=== PATIENT | male | born 1960 | race American Indian/Alaskan Native ===

== ENCOUNTER 2020-07-19 13:13 | Inpatient (IN) | payer MEDICARE ==
[2020-07-19] MEDS ORDERED: dilTIAZem 25 MG/5 ML INJ IV ONE (13:21)
[2020-07-19] MEDS ORDERED: dilTIAZem 25 MG/5 ML INJ ONE (13:21)
--- NOTE | 2020-07-19 13:29 | Emergency Department Report ---
HPI - General Time Seen by Provider: 07/19/20 13:20 - HPI HPI: Room 22 The patient is a 60-year-old male present with a chief complaint of altered mental status. Per EMS the patient was behaving like his normal self approximately 45 minutes prior to arrival. 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 Per EMS the patient was in A. fib with RVR. EMS states that they were unable to obtain a blood pressure. They attempted to cardiovert the patient x2 at 50 J unsuccessfully. The patient does not respond to verbal or tactile stimuli ED Past Medical Hx - Past Medical History Hx Hypertension: Yes Hx CVA: Yes - Family History Family history: no significant - Social History Smoking Status: Unknown if ever smoked ED Review of Systems ROS: Stated complaint: UNRESONSIVE Other details as noted in HPI Comment: Unobtainable due to pts medical conditions Physical Exam - Physical Exam Physical Exam: GENERAL: The patient is well-developed well-nourished male lying on stretcher unresponsive. [] HEENT: Normocephalic. Atraumatic. NECK: Supple. Trachea midline CHEST/LUNGS: Clear to auscultation. There is no respiratory distress noted. HEART/CARDIOVASCULAR: Irregularly irregular. There is tachycardia. There is no gallop rub or murmur. ABDOMEN: Abdomen is soft, nontender. Patient has normal bowel sounds. There is no abdominal distention. SKIN: There is no rash. There is no edema. There is no diaphoresis. NEURO: The patient is unresponsive to verbal or tactile stimuli MUSCULOSKELETAL: There is no evidence of acute injury. ED Course - Reevaluation(s) Reevaluation #1: 07/19/20 13:53 Patient more responsive now. Gag reflex in place. Patient attempts to voice words but is soft-spoken. Patient answers questions appropriately denies complaints. - Central Line Placement Right Femoral Consent Obtained: verbal consent Time Out Performed: Yes Patient Placed on Monitor/Pulse Ox: Yes MD Prep: mask, gown, gloves Central Line Prep: Chlorhexidine scrub Local Anesthesia Used: Lidocaine 1% Amount of Anesthesia Used (mls): 5 Ultrasound Used for Placement: No Central Line Lumen Inserted: triple Bloods Obtained for Lab: No Central Line Position: good blood return, all ports aspirated, flus, other (Secured with adhesive) Dressing Applied: Tegaderm Patient Tolerated Procedure: no complications Complications: none Additional Comments: Blood return was dark and nonpulsatile ED Medical Decision Making - Lab Data Result diagrams: 07/19/20 13:48 07/19/20 13:48 Laboratory Tests 07/19/20 07/19/20 07/19/20 13:48 13:48 13:48 WBC 7.5 RBC 4.40 Hgb 13.0 Hct 40.6 MCV 92 MCH 30 MCHC 32 RDW 15.3 H Plt Count 154 Add Manual Diff Complete Total Counted 100 Seg Neuts % (Manual) 61.0 Band Neutrophils % 1.0 Lymphocytes % (Manual) 27.0 Reactive Lymphs % (Man) 0 Monocytes % (Manual) 3.0 Eosinophils % (Manual) 0 Basophils % (Manual) 0 Metamyelocytes % 7.0 Myelocytes % 1.0 Promyelocytes % 0 Blast Cells % 0 Nucleated RBC % Not Reportable Seg Neutrophils # Man 4.6 Band Neutrophils # 0.1 Lymphocytes # (Manual) 2.0 Abs React Lymphs (Man) 0.0 Monocytes # (Manual) 0.2 Eosinophils # (Manual) 0.0 Basophils # (Manual) 0.0 Metamyelocytes # 0.5 Myelocytes # 0.1 Promyelocytes # 0.0 Blast Cells # 0.0 WBC Morphology Not Reportable Hypersegmented Neuts Not Reportable Hyposegmented Neuts Not Reportable Hypogranular Neuts Not Reportable Smudge Cells Not Reportable Toxic Granulation Not Reportable Toxic Vacuolation Not Reportable Dohle Bodies Not Reportable Pelger-Huet Anomaly Not Reportable Lilliam Rods Not Reportable Platelet Estimate Consistent w auto Clumped Platelets Not Reportable Plt Clumps, EDTA Not Reportable Large Platelets Not Reportable Giant Platelets Not Reportable Platelet Satelliting Not Reportable Plt Morphology Comment Not Reportable RBC Morphology Not Reportable Dimorphic RBCs Not Reportable Polychromasia Not Reportable Hypochromasia Not Reportable Poikilocytosis Not Reportable Anisocytosis Not Reportable Microcytosis Not Reportable Macrocytosis Not Reportable Spherocytes Not Reportable Pappenheimer Bodies Not Reportable Sickle Cells Not Reportable Target Cells Not Reportable Tear Drop Cells Not Reportable Ovalocytes Not Reportable Helmet Cells Not Reportable Cates-[place]ear[place] Bodies Not Reportable Coy Rings Not Reportable [place] Cells Not Reportable Bite Cells Not Reportable Crenated Cell Not Reportable Elliptocytes Few Acanthocytes (Spur) Not Reportable Rouleaux Not Reportable Hemoglobin C Crystals Not Reportable Schistocytes Not Reportable Malaria parasites Not Reportable Philipp Bodies Not Reportable Hem Pathologist Commnt No PT 18.5 H INR 1.51 H APTT 32.6 Sodium 148 H Potassium 2.9 L* Chloride 105.8 Carbon Dioxide 11 L Anion Gap 34 BUN 28 H Creatinine 2.5 H Estimated GFR 32 BUN/Creatinine Ratio 11 Glucose 197 H Calcium 9.4 Magnesium 2.40 H Total Bilirubin 0.20 AST 33 ALT 28 Alkaline Phosphatase 85 Total Creatine Kinase 280 H CK-MB (CK-2) 4.6 H CK-MB (CK-2) Rel Index 1.6 Troponin T 0.024 NT-Pro-B Natriuret Pep 1008 H Total Protein 7.1 Albumin 3.3 L Albumin/Globulin Ratio 0.9 TSH Free T4 Plasma/Serum Alcohol 07/19/20 07/19/20 07/19/20 13:48 13:48 13:48 WBC RBC Hgb Hct MCV MCH MCHC RDW Plt Count Add Manual Diff Total Counted Seg Neuts % (Manual) Band Neutrophils % Lymphocytes % (Manual) Reactive Lymphs % (Man) Monocytes % (Manual) Eosinophils % (Manual) Basophils % (Manual) Metamyelocytes % Myelocytes % Promyelocytes % Blast Cells % Nucleated RBC % Seg Neutrophils # Man Band Neutrophils # Lymphocytes # (Manual) Abs React Lymphs (Man) Monocytes # (Manual) Eosinophils # (Manual) Basophils # (Manual) Metamyelocytes # Myelocytes # Promyelocytes # Blast Cells # WBC Morphology TNR Hypersegmented Neuts Hyposegmented Neuts Hypogranular Neuts Smudge Cells Toxic Granulation Toxic Vacuolation Dohle Bodies Pelger-Huet Anomaly Lilliam Rods Platelet Estimate Clumped Platelets Plt Clumps, EDTA Large Platelets Giant Platelets Platelet Satelliting Plt Morphology Comment RBC Morphology Dimorphic RBCs Polychromasia Hypochromasia Poikilocytosis Anisocytosis Microcytosis Macrocytosis Spherocytes Pappenheimer Bodies Sickle Cells Target Cells Tear Drop Cells Ovalocytes Helmet Cells Cates-[place]ear[place] Bodies Coy Rings Morteza Cells Bite Cells Crenated Cell Elliptocytes Acanthocytes (Spur) Rouleaux Hemoglobin C Crystals Schistocytes Malaria parasites Philipp Bodies Hem Pathologist Commnt PT INR APTT Sodium Potassium Chloride Carbon Dioxide Anion Gap BUN Creatinine Estimated GFR BUN/Creatinine Ratio Glucose Calcium Magnesium Total Bilirubin AST ALT Alkaline Phosphatase Total Creatine Kinase CK-MB (CK-2) CK-MB (CK-2) Rel Index Troponin T NT-Pro-B Natriuret Pep Total Protein Albumin Albumin/Globulin Ratio TSH 5.460 H Free T4 1.17 Plasma/Serum Alcohol < 0.01 - EKG Data -: EKG Interpreted by Me Rate: normal - EKG Data When compared to previous EKG there are: previous EKG unavailable Interpretation: other (Atrial fibrillation at 83 bpm) - Radiology Data Radiology results: report reviewed (Chest x-ray, CT head), image reviewed (Chest x-ray, CT head) interpreted by me: Chest x-ray-no focal infiltrates, no pneumothorax, no foreign body seen [address] [address] XRay Report Signed Patient: CRESENCIO LAYTON MR#: [id number] : 1960 Acct:[id number] Age/Sex: 60 / M ADM Date: 07/19/20 Loc: ED Attending Dr: Ordering Physician: KEZIA PEARL MD Date of Service: 07/19/20 Procedure(s): XR chest 1V ap Accession Number(s): [id number] cc: KEZIA PEARL MD Fluoro Time In Minutes: CHEST 1 VIEW 07/19/2020 3:05 PM INDICATION / CLINICAL INFORMATION: Syncope. COMPARISON: None available. FINDINGS: SUPPORT DEVICES: None. HEART / MEDIASTINUM: No significant abnormality. LUNGS / PLEURA: No significant pulmonary or pleural abnormality. No pneumothorax. ADDITIONAL FINDINGS: No significant additional findings. IMPRESSION: 1. No acute findings. Signer Name: Thaddeus Noland MD Signed: 07/19/2020 3:30 PM Workstation Name: [id number] Transcribed By: TL Dictated By: Thaddeus Noland MD Electronically Authenticated By: Thaddeus Noland MD Signed Date/Time: 07/19/201529 DD/ 1530 TD/TT: [address] [address] Cat Scan Report Signed Patient: CRESENCIO LAYTON MR#: [id number] : 1960 Acct:[id number] Age/Sex: 60 / M ADM Date: 07/19/20 Loc: ED Attending Dr: Ordering Physician: KEZIA PEARL MD Date of Service: 07/19/20 Procedure(s): CT head/brain wo con Accession Number(s): [id number] cc: KEZIA PEARL MD CT head/brain wo con INDICATION / CLINICAL INFORMATION: 60 years Male; Altered mental status. TECHNIQUE: Routine CT head without contrast. All CT scans at this location are performed using CT dose reduction for ALARA by means of automated exposure control. COMPARISON: None. FINDINGS: BRAIN / INTRACRANIAL CONTENTS: There is ext ensive encephalomalacia involving the right cerebral hemisphere along the right MCA distribution compatible with old infarct at. There is associated ex vacuo dilatation of the right lateral ventricle. There is also an old infarct involving the posterior left cerebellum. There is otherwise extensive cerebral white matter disease most consistent with microvascular angiopathy. There is notable calcification involving the basal ganglia and cerebellar white matter. There is no clear CT evidence of acute intracranial hemorrhage or significant mass effect. ORBITS: No significant abnormality of visualized orbits. SINUSES / MASTOIDS: There is mild opacification involving visualized inferior maxillary sinuses. CRANIOCERVICAL JUNCTION: No significant abnormality. ADDITIONAL FINDINGS: None. IMPRESSION: 1. This old the right MCA infarct with extensive encephalomalacia. 2. There is also an old infarct involving the left cerebellum along with extensive microvascular angiopathy. There is no clear CT evidence of acute intracranial hemorrhage. Signer Name: Julio Cesar Benavides MD Signed: 07/19/2020 5:40 PM Workstation Name: [id number] Transcribed By: MR Dictated By: Julio Cesar Benavides MD Electronically Authenticated By: Julio Cesar Benavides MD Signed Date/Time: 07/19/201739 DD/ 33 TD/TT: - Differential Diagnosis ICH, A. fib with RVR, Critical care attestation.: If time is entered above; I have spent that time in minutes in the direct care of this critically ill patient, excluding procedure time. ED Disposition Clinical Impression: Syncope, Atrial fibrillation with rapid ventricular response Disposition: OP ADMIT IP TO THIS HOSP Is pt being admited?: Yes Does the pt Need Aspirin: Yes Condition: Stable Instructions: Syncope (ED) Referrals: PRIMARY CARE,MD [Primary Care Provider] - 3-5 Days Time of Disposition: 18:05 (Hospitalist paged (Dr Walker))
[2020-07-19] MEDS ORDERED: SODIUM CHLORIDE 0.9% 1000 ML 1,000 ML ONE ×2 (13:41→23:17)
[2020-07-19] MEDS ORDERED: dilTIAZem/D5W 100 MG/100 ML BAG IV SCH (14:00)
[2020-07-19 14:21] LABS: INR 1.51 (0.87-1.13)
[2020-07-19 14:22] LABS: Partial Thromboplastin Time 32.6 Sec. (24.2-36.6)
[2020-07-19 14:27] LABS: Hematocrit 40.6 % (35.5-45.6); Mean Corpuscular HGB Conc 32 % (32-34); Mean Corpuscular Volume 92 fl (84-94); Platelet Count 154 K/mm3 (140-440); Red Cell Distribution Width 15.3 % (13.2-15.2)
[2020-07-19 14:30] LABS: Albumin 3.3 g/dL (3.9-5); Calcium 9.4 mg/dL (8.4-10.2); Creatine Kinase MB 4.6 ng/mL (0.0-4.0)
[2020-07-19 14:36] LABS: Free T4 (Free Thyroxine) 1.17 ng/dL (0.76-1.46)
[2020-07-19] MEDS: NORepinephrine/NS 4 MG-250 ML 4 MG/250 ML BAG IV SCH ×2 (14:50→23:30)
[2020-07-19] MEDS ORDERED: ONDANSETRON 4 MG/2 ML INJ ONE ×2 (15:17→23:40)
--- NOTE | 2020-07-19 15:35 | XRay Report ---
CHEST 1 VIEW 07/19/2020 3:05 PM INDICATION / CLINICAL INFORMATION: Syncope. COMPARISON: None available. FINDINGS: SUPPORT DEVICES: None. HEART / MEDIASTINUM: No significant abnormality. LUNGS / PLEURA: No significant pulmonary or pleural abnormality. No pneumothorax. ADDITIONAL FINDINGS: No significant additional findings. IMPRESSION: 1. No acute findings. Signer Name: Thaddeus Noland MD Signed: 07/19/2020 3:30 PM Workstation Name: [id number]
[2020-07-19 16:21] LABS: Band Neutrophils # (Manual) 0.1 K/mm3; Basophils % (Manual) 0 % (0.0-1.8); Eosinophils % (Manual) 0 % (0.0-4.3); Myelocytes # (Manual) 0.1 K/mm3; Total Cells Counted 100
[2020-07-19 16:23] LABS: Platelet Estimate Consistent w Auto
--- NOTE | 2020-07-19 17:45 | Cat Scan Report ---
CT head/brain wo con INDICATION / CLINICAL INFORMATION: 60 years Male; Altered mental status. TECHNIQUE: Routine CT head without contrast. All CT scans at this location are performed using CT dos e reduction for ALARA by means of automated exposure control. COMPARISON: None. FINDINGS: BRAIN / INTRACRANIAL CONTENTS: There is extensive encephalomalacia involving the right cerebral hemis phere along the right MCA distribution compatible with old infarct at. There is associated ex vacuo d ilatation of the right lateral ventricle. There is also an old infarct involving the posterior left c erebellum. There is otherwise extensive cerebral white matter disease most consistent with microvascular angiopa thy. There is notable calcification involving the basal ganglia and cerebellar white matter. There is no clear CT evidence of acute intracranial hemorrhage or significant mass effect. ORBITS: No significant abnormality of visualized orbits. SINUSES / MASTOIDS: There is mild opacification involving visualized inferior maxillary sinuses. CRANIOCERVICAL JUNCTION: No significant abnormality. ADDITIONAL FINDINGS: None. IMPRESSION: 1. This old the right MCA infarct with extensive encephalomalacia. 2. There is also an old infarct involving the left cerebellum along with extensive microvascular adi opathy. There is no clear CT evidence of acute intracranial hemorrhage. Signer Name: Julio Cesar Benavides MD Signed: 07/19/2020 5:40 PM Workstation Name: [id number]
[2020-07-19] MEDS: POTASSIUM CHLORIDE 20 MEQ 20 MEQ/100 ML BAG IV SCH ×2 (17:58→20:07)
[2020-07-19] MEDS ORDERED: METOCLOPRAMIDE 10 MG/2 ML INJ IV ONE (18:17)
[2020-07-19] MEDS ORDERED: SODIUM CHLORIDE 0.9% 1000 ML 1,000 ML IV SCH (22:45)
[2020-07-19] MEDS ORDERED: METOCLOPRAMIDE 10 MG/2 ML INJ IV PRN (22:45)
[2020-07-19] MEDS ORDERED: ACETAMINOPHEN 325 MG TAB PO PRN (22:45)
[2020-07-19] MEDS ORDERED: MORPHINE 4 MG/1 ML INJ IV PRN (22:45)
[2020-07-19] MEDS ORDERED: POTASSIUM CHLORIDE 10 MEQ 10 MEQ/100 ML BAG IV ONE (23:17)
[2020-07-19] MEDS ORDERED: FAMOTIDINE 20 MG/2 ML INJ IV ONE (23:23)
[2020-07-19] MEDS: FAMOTIDINE 20 MG/2 ML INJ IV SCH (23:25)
[2020-07-19] MEDS: POTASSIUM CHLORIDE 10 MEQ 10 MEQ/100 ML BAG IV SCH (23:25)
[2020-07-19] MEDS ORDERED: NORepinephrine/NS 4 MG-250 ML 4 MG/250 ML BAG IV ONE (23:25)
[2020-07-19] MEDS: ONDANSETRON 4 MG/2 ML INJ IV PRN (23:40)
[2020-07-20] MEDS ORDERED: POTASSIUM CHLORIDE 10 MEQ 10 MEQ/100 ML BAG IV ONE (00:34)
[2020-07-20] MEDS: POTASSIUM CHLORIDE 10 MEQ 10 MEQ/100 ML BAG IV SCH ×3 (00:49→02:04)
[2020-07-20] MEDS ORDERED: MORPHINE 2 MG/1 ML INJ ONE ×2 (02:19→11:45)
[2020-07-20] MEDS: MORPHINE 2 MG/1 ML INJ IV PRN ×2 (02:22→11:45)
[2020-07-20 04:05] LABS: Hematocrit 45.3 % (35.5-45.6); Mean Corpuscular HGB Conc 33 % (32-34); Mean Corpuscular Volume 90 fl (84-94); Platelet Count 167 K/mm3 (140-440); Red Blood Count 5.02 M/mm3 (3.65-5.03); Red Cell Distribution Width 15.9 % (13.2-15.2)
[2020-07-20 04:23] LABS: Albumin 3.6 g/dL (3.9-5); Calcium 8.4 mg/dL (8.4-10.2)
[2020-07-20 06:42] LABS: Anisocytosis 1+; Basophils % (Manual) 0 % (0.0-1.8); Eosinophils % (Manual) 0 % (0.0-4.3); Platelet Estimate Consistent w Auto; Total Cells Counted 100
[2020-07-20] MEDS ORDERED: NORepinephrine/NS 4 MG-250 ML 4 MG/250 ML BAG IV ONE ×2 (07:12→17:14)
[2020-07-20 07:54] LABS: Bacteria,Urine 4+ /HPF (Negative); Bilirubin,Urine NEG (Negative); Blood,Urine LG (Negative); Color,Urine Amber (Yellow); Mucus,Urine FEW /HPF; Urobilinogen,Urine < 2.0 mg/dL (<2.0)
[2020-07-20] MEDS: NORepinephrine/NS 4 MG-250 ML 4 MG/250 ML BAG IV SCH (08:00)
--- NOTE | 2020-07-20 08:51 | History and Physical Report ---
History of Present Illness Date of examination: 07/19/20 Date of admission: 07/19/20 18:39 Chief complaint: Unresponsive for 1 hour prior to EMS arrival History of present illness: 60-year-old male with history of hypertension and cerebrovascular accident in the past brought in by EMS with a chief complaint of altered mental status. Per EMS the patient was behaving like his normal self approximately 45 minutes prior to arrival. 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 Per EMS the patient was in A. fib with RVR. EMS states that they were unable to obtain a blood pressure. They attempted to cardiovert the patient x2 at 50 J unsuccessfully. The patient does not respond to verbal or tactile stimuli - Past Medical History Hx Hypertension: Yes Hx CVA: Yes - Family History Family history: no significant - Social History Smoking Status: Unknown if ever smoked Review of Systems ROS: Stated complaint: UNRESONSIVE Other details as noted in HPI Comment: Unobtainable due to pts medical conditions Medications and Allergies Allergies Allergy/AdvReac Type Severity Reaction Status Date / Time No Known Allergies Allergy Unverified 07/19/20 14:28 Active Meds: Active Medications Acetaminophen (Tylenol) 650 mg PO Q4H PRN PRN Reason: Pain MILD(1-3)/Fever >100.5/HAZEL Famotidine (Pepcid) 20 mg IV QAM EUNICE Last Admin: 07/19/20 23:25 Dose: 20 mg Documented by: Diltiazem HCl (Cardizem/D5w 100mg/100ml) 100 mg in 100 mls @ 5 mls/hr IV TITR EUNICE; Protocol Last Admin: 07/19/20 20:53 Dose: 5 mg/hr, 5 mls/hr Documented by: Norepinephrine (Levophed Drip 4 Mg/Ns 250 Ml) 4 mg in 250 mls @ 7.5 mls/hr IV TITR EUNICE; Protocol Last Titration: 07/20/20 01:30 Dose: 6 mcg/min, 22.5 mls/hr Documented by: Sodium Chloride (Nacl 0.9% 1000 Ml) 1,000 mls @ 100 mls/hr IV DIRECT EUNICE Last Admin: 07/19/20 23:25 Dose: 100 mls/hr Documented by: Metoclopramide HCl (Reglan) 5 mg IV Q6H PRN PRN Reason: Nausea And Vomiting Morphine Sulfate (Morphine) 2 mg IV Q4H PRN PRN Reason: Pain, Moderate (4-6) Last Admin: 07/20/20 02:22 Dose: 2 mg Documented by: Morphine Sulfate (Morphine) 4 mg IV Q4H PRN PRN Reason: Pain , Severe (7-10) Ondansetron HCl (Zofran) 4 mg IV Q8H PRN PRN Reason: Nausea And Vomiting Last Admin: 07/19/20 23:40 Dose: 4 mg Documented by: Sodium Chloride (Sodium Chloride Flush Syringe 10 Ml) 10 ml IV BID EUNICE Sodium Chloride (Sodium Chloride Flush Syringe 10 Ml) 10 ml IV PRN PRN PRN Reason: LINE FLUSH Exam - Physical Exam Narrative exam: Patient is unresponsive - Constitutional Vitals: Temp Pulse Resp BP Pulse Ox 97.7 F 82 25 H 101/77 99 07/19/20 23:46 07/20/20 06:45 07/20/20 06:30 07/20/20 06:45 07/20/20 06:45 General appearance: Present: no acute distress, well-nourished - EENT Eyes: Present: PERRL ENT: hearing intact, clear oral mucosa - Neck Neck: Present: supple, normal ROM - Respiratory Respiratory effort: normal Respiratory: bilateral: CTA - Cardiovascular Heart rate: 88 Rhythm: irregularly irregular Heart Sounds: Present: S1 & S2. Absent: rub, click - Extremities Extremities: pulses symmetrical, No edema Peripheral Pulses: within normal limits - Abdominal General gastrointestinal: Present: soft, non-tender, non-distended, normal bowel sounds Male genitourinary: Present: normal - Rectal Rectal Exam: deferred - Integumentary Integumentary: Present: clear, warm, dry - Musculoskeletal Musculoskeletal: generalized weakness - Psychiatric Psychiatric: other (Unresponsive) - Neurologic Neurologic: CNII-XII intact, moves all extremities HEART Score - HEART Score History: Moderately suspicious Age: 45-65 Risk factors: 1-2 risk factors Troponin: Troponin T 0.024 ng/mL (0.00-0.029) 07/19/20 13:48 Troponin: 1-3x normal limit - Critical Actions Critical Actions: 4-6 pts:12-16.6% risk of adverse cardiac event. Should be admitted Results - Labs CBC & Chem 7: 07/20/20 03:40 07/20/20 03:40 Labs: Laboratory Last Values WBC 10.7 K/mm3 (4.5-11.0) 07/20/20 03:40 RBC 5.02 M/mm3 (3.65-5.03) 07/20/20 03:40 Hgb 15.0 gm/dl (11.8-15.2) 07/20/20 03:40 Hct 45.3 % (35.5-45.6) 07/20/20 03:40 MCV 90 fl (84-94) 07/20/20 03:40 MCH 30 pg (28-32) 07/20/20 03:40 MCHC 33 % (32-34) 07/20/20 03:40 RDW 15.9 % (13.2-15.2) H 07/20/20 03:40 Plt Count 167 K/mm3 (140-440) 07/20/20 03:40 Add Manual Diff Complete 07/20/20 03:40 Total Counted 100 07/20/20 03:40 Seg Neuts % (Manual) 92.0 % (40.0-70.0) H 07/20/20 03:40 Band Neutrophils % 0 % 07/20/20 03:40 Lymphocytes % (Manual) 3.0 % (13.4-35.0) L 07/20/20 03:40 Reactive Lymphs % (Man) 0 % 07/20/20 03:40 Monocytes % (Manual) 5.0 % (0.0-7.3) 07/20/20 03:40 Eosinophils % (Manual) 0 % (0.0-4.3) 07/20/20 03:40 Basophils % (Manual) 0 % (0.0-1.8) 07/20/20 03:40 Metamyelocytes % 0 % 07/20/20 03:40 Myelocytes % 0 % 07/20/20 03:40 Promyelocytes % 0 % 07/20/20 03:40 Blast Cells % 0 % 07/20/20 03:40 Nucleated RBC % Not Reportable 07/20/20 03:40 Seg Neutrophils # Man 9.8 K/mm3 (1.8-7.7) H 07/20/20 03:40 Band Neutrophils # 0.0 K/mm3 07/20/20 03:40 Lymphocytes # (Manual) 0.3 K/mm3 (1.2-5.4) L 07/20/20 03:40 Abs React Lymphs (Man) 0.0 K/mm3 07/20/20 03:40 Monocytes # (Manual) 0.5 K/mm3 (0.0-0.8) 07/20/20 03:40 Eosinophils # (Manual) 0.0 K/mm3 (0.0-0.4) 07/20/20 03:40 Basophils # (Manual) 0.0 K/mm3 (0.0-0.1) 07/20/20 03:40 Metamyelocytes # 0.0 K/mm3 07/20/20 03:40 Myelocytes # 0.0 K/mm3 07/20/20 03:40 Promyelocytes # 0.0 K/mm3 07/20/20 03:40 Blast Cells # 0.0 K/mm3 07/20/20 03:40 WBC Morphology Not Reportable 07/20/20 03:40 Hypersegmented Neuts Not Reportable 07/20/20 03:40 Hyposegmented Neuts Not Reportable 07/20/20 03:40 Hypogranular Neuts Not Reportable 07/20/20 03:40 Smudge Cells Not Reportable 07/20/20 03:40 Toxic Granulation Not Reportable 07/20/20 03:40 Toxic Vacuolation Not Reportable 07/20/20 03:40 Dohle Bodies Not Reportable 07/20/20 03:40 Pelger-Huet Anomaly Not Reportable 07/20/20 03:40 Lilliam Rods Not Reportable 07/20/20 03:40 Platelet Estimate Consistent w auto 07/20/20 03:40 Clumped Platelets Not Reportable 07/20/20 03:40 Plt Clumps, EDTA Not Reportable 07/20/20 03:40 Large Platelets Not Reportable 07/20/20 03:40 Giant Platelets Not Reportable 07/20/20 03:40 Platelet Satelliting Not Reportable 07/20/20 03:40 Plt Morphology Comment Not Reportable 07/20/20 03:40 RBC Morphology Not Reportable 07/20/20 03:40 Dimorphic RBCs Not Reportable 07/20/20 03:40 Polychromasia Not Reportable 07/20/20 03:40 Hypochromasia Not Reportable 07/20/20 03:40 Poikilocytosis Not Reportable 07/20/20 03:40 Anisocytosis 1+ 07/20/20 03:40 Microcytosis Not Reportable 07/20/20 03:40 Macrocytosis Not Reportable 07/20/20 03:40 Spherocytes Not Reportable 07/20/20 03:40 Pappenheimer Bodies Not Reportable 07/20/20 03:40 Sickle Cells Not Reportable 07/20/20 03:40 Target Cells Not Reportable 07/20/20 03:40 Tear Drop Cells Not Reportable 07/20/20 03:40 Ovalocytes Not Reportable 07/20/20 03:40 Helmet Cells Not Reportable 07/20/20 03:40 Cates-Murdock Bodies Not Reportable 07/20/20 03:40 [place] Rings Not Reportable 07/20/20 03:40 Morteza Cells Not Reportable 07/20/20 03:40 Bite Cells Not Reportable 07/20/20 03:40 Crenated Cell Not Reportable 07/20/20 03:40 Elliptocytes Not Reportable 07/20/20 03:40 Acanthocytes (Spur) Not Reportable 07/20/20 03:40 Rouleaux Not Reportable 07/20/20 03:40 Hemoglobin C Crystals Not Reportable 07/20/20 03:40 Schistocytes Not Reportable 07/20/20 03:40 Malaria parasites Not Reportable 07/20/20 03:40 Philipp Bodies Not Reportable 07/20/20 03:40 Hem Pathologist Commnt No 07/20/20 03:40 PT 18.5 Sec. (12.2-14.9) H 07/19/20 13:48 INR 1.51 (0.87-1.13) H 07/19/20 13:48 APTT 32.6 Sec. (24.2-36.6) 07/19/20 13:48 Sodium 147 mmol/L (137-145) H 07/20/20 03:40 Potassium 3.9 mmol/L (3.6-5.0) D 07/20/20 03:40 Chloride 106.0 mmol/L (98-107) 07/20/20 03:40 Carbon Dioxide 19 mmol/L (22-30) L D 07/20/20 03:40 Anion Gap 26 mmol/L 07/20/20 03:40 BUN 49 mg/dL (9-20) H 07/20/20 03:40 Creatinine 3.3 mg/dL (0.8-1.3) H 07/20/20 03:40 Estimated GFR 23 ml/min 07/20/20 03:40 BUN/Creatinine Ratio 15 % 07/20/20 03:40 Glucose 169 mg/dL (75-100) H 07/20/20 03:40 Hemoglobin A1c 5.7 % (4-6) 07/20/20 03:40 Calcium 8.4 mg/dL (8.4-10.2) 07/20/20 03:40 Magnesium 2.40 mg/dL (1.7-2.3) H 07/19/20 13:48 Total Bilirubin 0.30 mg/dL (0.1-1.2) 07/20/20 03:40 AST 133 units/L (5-40) H 07/20/20 03:40 ALT 73 units/L (7-56) H 07/20/20 03:40 Alkaline Phosphatase 86 units/L (35-129) 07/20/20 03:40 Total Creatine Kinase 280 units/L (55-170) H 07/19/20 13:48 CK-MB (CK-2) 4.6 ng/mL (0.0-4.0) H 07/19/20 13:48 CK-MB (CK-2) Rel Index 1.6 (0-4) 07/19/20 13:48 Troponin T 0.024 ng/mL (0.00-0.029) 07/19/20 13:48 NT-Pro-B Natriuret Pep 1008 pg/mL (0-900) H 07/19/20 13:48 Total Protein 7.1 g/dL (6.3-8.2) 07/20/20 03:40 Albumin 3.6 g/dL (3.9-5) L 07/20/20 03:40 Albumin/Globulin Ratio 1.0 % 07/20/20 03:40 TSH 5.460 mlU/mL (0.270-4.200) H 07/19/20 13:48 Free T4 1.17 ng/dL (0.76-1.46) 07/19/20 13:48 Urine Color Mylene (Yellow) 07/19/20 Unknown Urine Turbidity Cloudy (Clear) 07/19/20 Unknown Urine pH 7.0 (5.0-7.0) 07/19/20 Unknown Ur Specific [place] 1.017 (1.003-1.030) 07/19/20 Unknown Urine Protein 100 mg/dl mg/dL (Negative) 07/19/20 Unknown Urine Glucose (UA) Neg mg/dL (Negative) 07/19/20 Unknown Urine Ketones Neg mg/dL (Negative) 07/19/20 Unknown Urine Blood Lg (Negative) 07/19/20 Unknown Urine Nitrite Neg (Negative) 07/19/20 Unknown Urine Bilirubin Neg (Negative) 07/19/20 Unknown Urine Urobilinogen < 2.0 mg/dL (<2.0) 07/19/20 Unknown Ur Leukocyte Esterase Lg (Negative) 07/19/20 Unknown Urine WBC (Auto) 110.0 /HPF (0.0-6.0) H 07/19/20 Unknown Urine RBC (Auto) 68.0 /HPF (0.0-6.0) 07/19/20 Unknown U Epithel Cells (Auto) 1.0 /HPF (0-13.0) 07/19/20 Unknown Urine Bacteria (Auto) 4+ /HPF (Negative) 07/19/20 Unknown Urine Mucus Few /HPF 07/19/20 Unknown Plasma/Serum Alcohol < 0.01 % (0-0.07) 07/19/20 13:48 Short CBC 07/19/20 07/20/20 Range/Units 13:48 03:40 WBC 7.5 10.7 (4.5-11.0) K/mm3 Hgb 13.0 15.0 (11.8-15.2) gm/dl Hct 40.6 45.3 (35.5-45.6) % Plt Count 154 167 (140-440) K/mm3 BMP 07/19/20 07/20/20 13:48 03:40 Sodium 148 H 147 H Potassium 2.9 L* 3.9 D Chloride 105.8 106.0 Carbon Dioxide 11 L 19 L D BUN 28 H 49 H Creatinine 2.5 H 3.3 H Glucose 197 H 169 H Calcium 9.4 8.4 Cardiac Enzymes 07/19/20 Range/Units 13:48 Total Creatine Kinase 280 H (55-170) units/L CK-MB (CK-2) 4.6 H (0.0-4.0) ng/mL Troponin T 0.024 (0.00-0.029) ng/mL Liver Function 07/19/20 07/20/20 Range/Units 13:48 03:40 Total Bilirubin 0.20 0.30 (0.1-1.2) mg/dL AST 33 133 H (5-40) units/L ALT 28 73 H (7-56) units/L Alkaline Phosphatase 85 86 (35-129) units/L Albumin 3.3 L 3.6 L (3.9-5) g/dL Urine 07/19/20 Range/Units Unknown Urine Color Mylene (Yellow) Urine pH 7.0 (5.0-7.0) Ur Specific [place] 1.017 (1.003-1.030) Urine Protein 100 mg/dl (Negative) mg/dL Urine Glucose (UA) Neg (Negative) mg/dL - Imaging and Cardiology EKG: report reviewed (Lito burr with RVR) Imaging and Cardiology: Head CT Old right MCA infarct with extensive encephalomalacia Old infarct involving the left cerebellum along with extensive microvascular angiopathy. There is no clear CT evidence of acute intracranial hemorrhage. Chest x-ray No acute findings Tineo/IV: IV Catheter Type [Right Hand] INT / Saline Lock IV Catheter Type [Right INT / Saline Lock Forearm] Assessment and Plan Assessment and plan: Critical care statement The high probability OF a clinically significant sudden or life-threatening d eterioration of the cardiorespiratory system and endocrine system required my full and direct attention, intervention and postoperative management. The aggregate medical care time was 40 minutes. The time is in addition to time spent performing reported procedures but includes the followin: Data review and interpretation 2: Patient assessment and monitoring of vital signs 3: Documentation 4:: Medication orders and management Advance Directives: Yes (Full code) VTE prophylaxis?: Chemical Plan of care discussed with patient/family: Yes - Patient Problems (1) Atrial fibrillation with rapid ventricular response Current Visit: Yes Status: Acute Plan to address problem: Patient was given Cardizem IV in the ER Patient became hypotensive Heart rate improved We will get cardiology consult (2) Hypotension Current Visit: Yes Status: Acute Qualifiers: Hypotension type: unspecified hypotension type Qualified Code(s): I95.9 - Hypotension, unspecified Plan to address problem: Differential diagnosis of septic shock versus iatrogenic IV fluids for now IV Rocephin and vancomycin (3) Sepsis Current Visit: Yes Status: Acute Plan to address problem: Sepsis and differential diagnosis Patient is hypotensive Patient has UTI with white blood cells of 110 in the urine (4) History of hypertension Current Visit: Yes Status: Chronic Plan to address problem: We will hold antihypertensives for now (5) JESSIKA (acute kidney injury) Current Visit: Yes Status: Acute Plan to address problem: IV fluids for now Possible ATN Nephrology consult requested (6) DVT prophylaxis Current Visit: Yes Status: Acute Plan to address problem: Heparin subcu and GI prophylaxis
[2020-07-20] MEDS ORDERED: VANCOMYCIN PHARMACY TO DOSE IV SCH (09:00)
--- NOTE | 2020-07-20 09:08 | Progress Note ---
Assessment and Plan Critical care statement The high probability OF a clinically significant sudden or life-threatening deterioration of the cardiorespiratory system and endocrine system required my full and direct attention, intervention and postoperative management. The aggregate critical care time was 40 minutes. The time is in addition to time spent performing reported procedures but includes the followin: Data review and interpretation 2: Patient assessment and monitoring of vital signs 3: Documentation 4:: Medication orders and management - Patient Problems (1) Atrial fibrillation with rapid ventricular response Current Visit: Yes Status: Acute Plan to address problem: Patient was given Cardizem IV in the ER Patient became hypotensive Heart rate improved We will get cardiology consult Patient's heart rate is in the 80s but irregularly irregular Echocardiogram ordered (2) Hypotension Current Visit: Yes Status: Acute Qualifiers: Hypotension type: unspecified hypotension type Qualified Code(s): I95.9 - Hypotension, unspecified Plan to address problem: Differential diagnosis of septic shock versus iatrogenic IV fluids for now IV Rocephin and vancomycin (3) Sepsis Current Visit: Yes Status: Suspected Plan to address problem: Sepsis and differential diagnosis Patient is hypotensive Patient has UTI with white blood cells of 110 in the urine (4) History of hypertension Current Visit: Yes Status: Chronic Plan to address problem: We will hold antihypertensives for now (5) JESSIKA (acute kidney injury) Current Visit: Yes Status: Acute Plan to address problem: IV fluids for now Possible ATN Nephrology consult requested (6) Hypokalemia Current Visit: Yes Status: Resolved Plan to address problem: Corrected back to normal (7) DVT prophylaxis Current Visit: Yes Status: Acute Plan to address problem: Heparin subcu and GI prophylaxis Subjective Date of service: 07/20/20 Principal diagnosis: Atrial fibrillation with RVR, hypotension, UTI Interval history: 60-year-old male with history of hypertension and cerebrovascular accident in the past brought in by EMS with a chief complaint of altered mental status. Per EMS the patient was behaving like his normal self approximately 45 minutes prior to arrival. 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 Per EMS the patient was in A. fib with RVR. EMS states that they were unable to obtain a blood pressure. They attempted to cardiovert the patient x2 at 50 J unsuccessfully. The patient does not respond to verbal or tactile stimuli Objective - Exam Narrative Exam: Patient is unresponsive - Constitutional Vitals: Vital Signs - 12hr 07/19/20 07/19/20 07/19/20 21:15 21:30 21:45 Temperature Pulse Rate 70 64 72 Respiratory 22 21 22 Rate Blood Pressure 107/69 144/95 139/86 Blood Pressure [Left] O2 Sat by Pulse 100 100 100 Oximetry 07/19/20 07/19/20 07/19/20 22:00 22:31 22:45 Temperature Pulse Rate 70 68 64 Respiratory 21 27 H 23 Rate Blood Pressure 137/86 143/86 134/106 Blood Pressure [Left] O2 Sat by Pulse 100 91 100 Oximetry 07/19/20 07/19/20 07/19/20 23:01 23:15 23:31 Temperature Pulse Rate 68 71 69 Respiratory 23 21 26 H Rate Blood Pressure 126/107 115/93 140/75 Blood Pressure [Left] O2 Sat by Pulse 100 100 100 Oximetry 07/19/20 07/19/20 07/20/20 23:45 23:46 00:01 Temperature 97.7 F Pulse Rate 85 92 H 84 Respiratory 27 H 20 26 H Rate Blood Pressure 140/75 127/85 Blood Pressure 129/82 [Left] O2 Sat by Pulse 91 99 99 Oximetry 07/20/20 07/20/20 07/20/20 00:15 00:30 00:45 Temperature Pulse Rate 83 82 83 Respiratory 25 H 26 H Rate Blood Pressure 125/80 125/90 125/90 Blood Pressure [Left] O2 Sat by Pulse 97 95 97 Oximetry 07/20/20 07/20/20 07/20/20 01:01 01:15 01:30 Temperature Pulse Rate 78 87 83 Respiratory 25 H 19 Rate Blood Pressure 131/89 123/84 131/86 Blood Pressure [Left] O2 Sat by Pulse 99 97 99 Oximetry 07/20/20 07/20/20 07/20/20 01:45 02:01 02:15 Temperature Pulse Rate 96 H 89 88 Respiratory 19 18 Rate Blood Pressure 130/82 137/75 128/82 Blood Pressure [Left] O2 Sat by Pulse 99 99 97 Oximetry 07/20/20 07/20/20 07/20/20 02:31 02:45 03:01 Temperature Pulse Rate 86 116 H 92 H Respiratory 18 24 23 Rate Blood Pressure 128/82 107/60 111/71 Blood Pressure [Left] O2 Sat by Pulse 95 96 95 Oximetry 07/20/20 07/20/20 07/20/20 03:23 03:30 03:45 Temperature Pulse Rate 107 H 92 H 95 H Respiratory 28 H 21 25 H Rate Blood Pressure 111/71 115/80 115/80 Blood Pressure [Left] O2 Sat by Pulse 98 97 96 Oximetry 07/20/20 07/20/20 07/20/20 04:00 04:15 04:31 Temperature Pulse Rate 95 H 94 H 81 Respiratory 19 16 Rate Blood Pressure 113/79 113/79 122/83 Blood Pressure [Left] O2 Sat by Pulse 97 98 96 Oximetry 07/20/20 07/20/20 07/20/20 04:45 05:00 05:15 Temperature Pulse Rate 77 75 90 Respiratory 13 26 H 12 Rate Blood Pressure 103/65 112/65 112/65 Blood Pressure [Left] O2 Sat by Pulse 100 100 98 Oximetry 07/20/20 07/20/20 07/20/20 05:30 05:45 06:01 Temperature Pulse Rate 79 109 H 79 Respiratory 18 15 25 H Rate Blood Pressure 114/80 114/80 99/73 Blood Pressure [Left] O2 Sat by Pulse 98 98 Oximetry 07/20/20 07/20/20 07/20/20 06:15 06:30 06:45 Temperature Pulse Rate 86 80 82 Respiratory 22 25 H Rate Blood Pressure 99/73 112/73 101/77 Blood Pressure [Left] O2 Sat by Pulse 99 99 99 Oximetry General appearance: Present: no acute distress, well-nourished - EENT Eyes: PERRL, EOM intact ENT: hearing intact, clear oral mucosa Ears: bilateral: normal - Neck Neck: supple, normal ROM - Respiratory Respiratory effort: normal Respiratory: bilateral: CTA - Breasts Breasts: normal - Cardiovascular Heart rate: 80 Rhythm: irregularly irregular Heart Sounds: Present: S1 & S2. Absent: gallop, rub Extremities: pulses intact, No edema, normal color, Full ROM - Gastrointestinal General gastrointestinal: Present: soft, non-tender, non-distended, normal bowel sounds - Genitourinary Male genitourinary: normal - Integumentary Integumentary: clear, warm, dry - Musculoskeletal Musculoskeletal: generalized weakness - Neurologic Neurologic: moves all extremities, other - Psychiatric Psychiatric: memory intact - Labs CBC & Chem 7: 07/20/20 03:40 07/21/20 05:17 Labs: Abnormal lab results 07/19/20 07/19/20 07/19/20 Range/Units 13:48 13:48 13:48 RDW 15.3 H (13.2-15.2) % Seg Neuts % (Manual) (40.0-70.0) % Lymphocytes % (Manual) (13.4-35.0) % Seg Neutrophils # Man (1.8-7.7) K/mm3 Lymphocytes # (Manual) (1.2-5.4) K/mm3 PT 18.5 H (12.2-14.9) Sec. INR 1.51 H (0.87-1.13) Sodium 148 H (137-145) mmol/L Potassium 2.9 L* (3.6-5.0) mmol/L Carbon Dioxide 11 L (22-30) mmol/L BUN 28 H (9-20) mg/dL Creatinine 2.5 H (0.8-1.3) mg/dL Glucose 197 H (75-100) mg/dL Magnesium 2.40 H (1.7-2.3) mg/dL AST (5-40) units/L ALT (7-56) units/L Total Creatine Kinase 280 H (55-170) units/L CK-MB (CK-2) 4.6 H (0.0-4.0) ng/mL NT-Pro-B Natriuret Pep 1008 H (0-900) pg/mL Albumin 3.3 L (3.9-5) g/dL TSH (0.270-4.200) mlU/mL Urine WBC (Auto) (0.0-6.0) /HPF 07/19/20 07/19/20 07/20/20 Range/Units 13:48 Unknown 03:40 RDW 15.9 H (13.2-15.2) % Seg Neuts % (Manual) 92.0 H (40.0-70.0) % Lymphocytes % (Manual) 3.0 L (13.4-35.0) % Seg Neutrophils # Man 9.8 H (1.8-7.7) K/mm3 Lymphocytes # (Manual) 0.3 L (1.2-5.4) K/mm3 PT (12.2-14.9) Sec. INR (0.87-1.13) Sodium (137-145) mmol/L Potassium (3.6-5.0) mmol/L Carbon Dioxide (22-30) mmol/L BUN (9-20) mg/dL Creatinine (0.8-1.3) mg/dL Glucose (75-100) mg/dL Magnesium (1.7-2.3) mg/dL AST (5-40) units/L ALT (7-56) units/L Total Creatine Kinase (55-170) units/L CK-MB (CK-2) (0.0-4.0) ng/mL NT-Pro-B Natriuret Pep (0-900) pg/mL Albumin (3.9-5) g/dL TSH 5.460 H (0.270-4.200) mlU/mL Urine WBC (Auto) 110.0 H (0.0-6.0) /HPF 07/20/20 Range/Units 03:40 RDW (13.2-15.2) % Seg Neuts % (Manual) (40.0-70.0) % Lymphocytes % (Manual) (13.4-35.0) % Seg Neutrophils # Man (1.8-7.7) K/mm3 Lymphocytes # (Manual) (1.2-5.4) K/mm3 PT (12.2-14.9) Sec. INR (0.87-1.13) Sodium 147 H (137-145) mmol/L Potassium (3.6-5.0) mmol/L Carbon Dioxide 19 L D (22-30) mmol/L BUN 49 H (9-20) mg/dL Creatinine 3.3 H (0.8-1.3) mg/dL Glucose 169 H (75-100) mg/dL Magnesium (1.7-2.3) mg/dL AST 133 H (5-40) units/L ALT 73 H (7-56) units/L Total Creatine Kinase (55-170) units/L CK-MB (CK-2) (0.0-4.0) ng/mL NT-Pro-B Natriuret Pep (0-900) pg/mL Albumin 3.6 L (3.9-5) g/dL TSH (0.270-4.200) mlU/mL Urine WBC (Auto) (0.0-6.0) /HPF HEART Score - HEART Score Age: 45-65 Risk factors: 1-2 risk factors Troponin: Troponin T 0.024 ng/mL (0.00-0.029) 07/19/20 13:48 Troponin: 1-3x normal limit - Critical Actions Critical Actions: 4-6 pts:12-16.6% risk of adverse cardiac event. Should be admitted
[2020-07-20] MEDS ORDERED: VANCOMYCIN 1,500 MG in SODIUM CHLORIDE 0.9% 500 ML 500 ML IV ONE (10:00)
--- NOTE | 2020-07-20 11:18 | Consultation ---
History of Present Illness Consult date: 07/20/20 Requesting physician: TONY RINCON Reason for consult: other (critical care) History of present illness: The patient is a 60 YO male with a past medical history of paroxysmal AFib, HTN, CVA, CKD, DVT s/p IVC filter, anemia, gastritis, PUD per documentation. The patient is encephalopathic and unable to give a history. He presented for evaluation of AMS. Per EMS the patient was behaving like his normal self approximately 45 minutes prior to arrival. The patient's brand coordinator found the patient unresponsive and slumped over in the bathroom on the toilet. Per EMS the patient was in A. fib with RVR upon their arrival. EMS states that they were unable to obtain a blood pressure. They attempted to cardiovert the patient x2 at 50 J unsuccessfully. Admission ECG shows AFib with HR 83bpm. - Past Medical History Hx Hypertension: Yes Hx CVA: Yes - Family History Family history: no significant - Social History Smoking Status: Unknown if ever smoked ROS: Stated complaint: UNRESONSIVE Other details as noted in HPI Comment: Unobtainable due to pts medical conditions Medications and Allergies Allergies Allergy/AdvReac Type Severity Reaction Status Date / Time No Known Allergies Allergy Unverified 07/19/20 14:28 Home Medications Medication Instructions Recorded Confirmed Last Taken Type Amiodarone [Cordarone 200 MG TAB] 200 mg PO DAILY #30 tablet 07/28/20 Unknown Rx Apixaban [Eliquis] 5 mg PO Q12HR #60 tablet 07/28/20 Unknown Rx Famotidine [Pepcid] 20 mg PO QAM #30 tablet 07/28/20 Unknown Rx Metoprolol [Lopressor TAB] 25 mg PO TID #90 tablet 07/28/20 Unknown Rx Midodrine [Proamatine] 5 mg PO TID@0800,1200,1600 #90 07/28/20 Unknown Rx tablet Active Meds: Active Medications Acetaminophen (Tylenol) 650 mg PO Q4H PRN PRN Reason: Pain MILD(1-3)/Fever >100.5/HAZEL Famotidine (Pepcid) 20 mg IV QAM [facility] Last Admin: 07/19/20 23:25 Dose: 20 mg Documented by: Diltiazem HCl (Cardizem/D5w 100mg/100ml) 100 mg in 100 mls @ 5 mls/hr IV TITR [facility]; Protocol Last Admin: 07/19/20 20:53 Dose: 5 mg/hr, 5 mls/hr Documented by: Norepinephrine (Levophed Drip 4 Mg/Ns 250 Ml) 4 mg in 250 mls @ 7.5 mls/hr IV TITR [facility]; Protocol Last Titration: 07/20/20 01:30 Dose: 6 mcg/min, 22.5 mls/hr Documented by: Sodium Chloride (Nacl 0.9% 1000 Ml) 1,000 mls @ 100 mls/hr IV DIRECT [facility] Last Admin: 07/19/20 23:25 Dose: 100 mls/hr Documented by: Ceftriaxone Sodium (Rocephin/Ns 1 Gm/50 Ml) 1 gm in 50 mls @ 100 mls/hr IV Q24HR [facility]; Protocol Vancomycin HCl 1,500 mg/ (Sodium Chloride) 530 mls @ 333.333 mls/hr IV ONCE ONE Stop: 07/20/20 11:35 Metoclopramide HCl (Reglan) 5 mg IV Q6H PRN PRN Reason: Nausea And Vomiting Morphine Sulfate (Morphine) 2 mg IV Q4H PRN PRN Reason: Pain, Moderate (4-6) Last Admin: 07/20/20 02:22 Dose: 2 mg Documented by: Morphine Sulfate (Morphine) 4 mg IV Q4H PRN PRN Reason: Pain , Severe (7-10) Ondansetron HCl (Zofran) 4 mg IV Q8H PRN PRN Reason: Nausea And Vomiting Last Admin: 07/19/20 23:40 Dose: 4 mg Documented by: Sodium Chloride (Sodium Chloride Flush Syringe 10 Ml) 10 ml IV BID [facility] Sodium Chloride (Sodium Chloride Flush Syringe 10 Ml) 10 ml IV PRN PRN PRN Reason: LINE FLUSH Review of Systems ROS unobtainable: due to mental status Physical Examination Vital signs: Vital Signs Temp Pulse Resp 95.5 F L 155 H 30 H 07/19/20 13:30 07/19/20 13:30 07/19/20 13:30 General appearance: no acute distress, encephalopathy HEENT: Positive: PERRL, Normocephaly, Mucus Membranes Moist Neck: Positive: neck supple, trachea midline Cardiac: Positive: Irregular Rate and Rhythm, S1/S2 Lungs: Positive: Decreased Breath Sounds Neuro: Positive: Grossly Intact Abdomen: Negative: Tender Skin: Negative: Rash Musculoskeletal: No Pain Extremities: Absent: edema, femoral CVC Results - Laboratory Findings CBC and BMP: 07/28/20 06:52 07/28/20 06:52 PT/INR, D-dimer PT 18.5 Sec. (12.2-14.9) H 07/19/20 13:48 INR 1.51 (0.87-1.13) H 07/19/20 13:48 Abnormal lab findings: Abnormal Labs 07/19/20 07/19/20 07/19/20 13:48 13:48 13:48 RDW 15.3 H Seg Neuts % (Manual) Lymphocytes % (Manual) Seg Neutrophils # Man Lymphocytes # (Manual) PT 18.5 H INR 1.51 H Sodium 148 H Potassium 2.9 L* Carbon Dioxide 11 L BUN 28 H Creatinine 2.5 H Glucose 197 H Magnesium 2.40 H AST ALT Total Creatine Kinase 280 H CK-MB (CK-2) 4.6 H NT-Pro-B Natriuret Pep 1008 H Albumin 3.3 L TSH Urine WBC (Auto) 07/19/20 07/19/20 07/20/20 13:48 Unknown 03:40 RDW 15.9 H Seg Neuts % (Manual) 92.0 H Lymphocytes % (Manual) 3.0 L Seg Neutrophils # Man 9.8 H Lymphocytes # (Manual) 0.3 L PT INR Sodium Potassium Carbon Dioxide BUN Creatinine Glucose Magnesium AST ALT Total Creatine Kinase CK-MB (CK-2) NT-Pro-B Natriuret Pep Albumin TSH 5.460 H Urine WBC (Auto) 110.0 H 07/20/20 03:40 RDW Seg Neuts % (Manual) Lymphocytes % (Manual) Seg Neutrophils # Man Lymphocytes # (Manual) PT INR Sodium 147 H Potassium Carbon Dioxide 19 L D BUN 49 H Creatinine 3.3 H Glucose 169 H Magnesium AST 133 H ALT 73 H Total Creatine Kinase CK-MB (CK-2) NT-Pro-B Natriuret Pep Albumin 3.6 L TSH Urine WBC (Auto) - Diagnostic Findings Chest x-ray: image reviewed Assessment and Plan (1) AMS (altered mental status) Current Visit: Yes Status: Acute Plan to address problem: (2) Acute on chronic renal failure Current Visit: Yes Status: Acute Plan to address problem: Management as per nephrology. Avoid nephrotoxins Replace potassium (3) Atrial fibrillation with rapid ventricular response Current Visit: Yes Status: Acute Plan to address problem: Management as per cardiology. (4) Hypotension Current Visit: Yes Status: Acute Qualifiers: Hypotension type: unspecified hypotension type Qualified Code(s): I95.9 - H ypotension, unspecified Plan to address problem: Improving with IV fluids and midodrine Monitor respiratory status carefully while on fluids Monitor hemodynamics, reanl functions and electrolyte profile (5) Syncope Current Visit: Yes Status: Acute Plan to address problem: Symptom management (6) UTI (urinary tract infection) Current Visit: Yes Status: Acute Plan to address problem: Patient is on ceftriaxone. (7) History of CVA (cerebrovascular accident) Current Visit: Yes Status: Chronic Plan to address problem: Management as per neurology and primary care.
[2020-07-20] MEDS ORDERED: cefTRIAXone/NS 1 GM/50 ML 1 GM/50 ML BAG IV ONE (11:22)
[2020-07-20] MEDS ORDERED: FAMOTIDINE 20 MG/2 ML INJ IV ONE (11:22)
[2020-07-20] MEDS: FAMOTIDINE 20 MG/2 ML INJ IV SCH (11:23)
[2020-07-20] MEDS: cefTRIAXone/NS 1 GM/50 ML 1 GM/50 ML BAG IV SCH (11:23)
--- NOTE | 2020-07-20 15:17 | Consultation ---
History of Present Illness Consult date: 07/20/20 Requesting physician: TONY RINCON Consult reason: atrial fibrillation History of present illness: The pt is a 60 YO male with a past medical history (per discharge summary from [facility] in 10/2014) of paroxysmal AFib, HTN, CVA, CKD, DVT s/p IVC filter, anemia, gastritis, PUD. He is previously unknown to our practice. He is a rather poor historian and thus most of his HPI is obtained per the chart. He presented for evaluation of AMS. Per EMS the patient was behaving like his normal self approximately 45 minutes prior to arrival. The patient's residential solar consultant found the patient unresponsive and slumped over in the bathroom on the toilet. Per EMS the patient was in A. fib with RVR upon their arrival. EMS states that they were unable to obtain a blood pressure. They attempted to cardiovert the patient x2 at 50 J unsuccessfully. Admission ECG shows AFib with HR 83bpm. On evaluation, pt is noted to be in NSR with freq PACs. Lexiscan MPI stress test done at [facility] in 10/2014 was negative for ischemia, EF 40%. tte done 10/2014 showed EF 40%, severely dilated LA, mod dilated RA, mod TR, mild to mod MR, RVSP 51mmHg, small left pericardial effusion. Past History Past Medical History: other (as per HPI) Medications and Allergies Allergies Allergy/AdvReac Type Severity Reaction Status Date / Time No Known Allergies Allergy Unverified 07/19/20 14:28 Active Meds: Active Medications Acetaminophen (Tylenol) 650 mg PO Q4H PRN PRN Reason: Pain MILD(1-3)/Fever >100.5/HAZEL Famotidine (Pepcid) 20 mg IV QAM [facility] Last Admin: 07/20/20 11:23 Dose: 20 mg Documented by: Diltiazem HCl (Cardizem/D5w 100mg/100ml) 100 mg in 100 mls @ 5 mls/hr IV TITR [facility]; Protocol Last Admin: 07/19/20 20:53 Dose: 5 mg/hr, 5 mls/hr Documented by: Norepinephrine (Levophed Drip 4 Mg/Ns 250 Ml) 4 mg in 250 mls @ 7.5 mls/hr IV TITR [facility]; Protocol Last Admin: 07/20/20 08:00 Dose: 6 mcg/min, 22.5 mls/hr Documented by: Sodium Chloride (Nacl 0.9% 1000 Ml) 1,000 mls @ 100 mls/hr IV DIRECT EUNICE Last Admin: 07/19/20 23:25 Dose: 100 mls/hr Documented by: Ceftriaxone Sodium (Rocephin/Ns 1 Gm/50 Ml) 1 gm in 50 mls @ 100 mls/hr IV Q24HR [facility]; Protocol Last Admin: 07/20/20 11:23 Dose: 100 mls/hr Documented by: Metoclopramide HCl (Reglan) 5 mg IV Q6H PRN PRN Reason: Nausea And Vomiting Morphine Sulfate (Morphine) 2 mg IV Q4H PRN PRN Reason: Pain, Moderate (4-6) Last Admin: 07/20/20 11:45 Dose: 2 mg Documented by: Morphine Sulfate (Morphine) 4 mg IV Q4H PRN PRN Reason: Pain , Severe (7-10) Ondansetron HCl (Zofran) 4 mg IV Q8H PRN PRN Reason: Nausea And Vomiting Last Admin: 07/19/20 23:40 Dose: 4 mg Documented by: Sodium Chloride (Sodium Chloride Flush Syringe 10 Ml) 10 ml IV BID REPLACED BY [facility] Last Admin: 07/20/20 11:23 Dose: 10 ml Documented by: Sodium Chloride (Sodium Chloride Flush Syringe 10 Ml) 10 ml IV PRN PRN PRN Reason: LINE FLUSH Review of Systems Cardiovascular: no chest pain, no shortness of breath Neurological: confusion Physical Examination Vital Signs Temp Pulse Resp 95.5 F L 155 H 30 H 07/19/20 13:30 07/19/20 13:30 07/19/20 13:30 General appearance: no acute distress HEENT: Positive: PERRL, Normocephaly, Mucus Membranes Moist Neck: Positive: neck supple, trachea midline Cardiac: Positive: Reg Rate and Rhythm, S1/S2 Lungs: Positive: Decreased Breath Sounds Neuro: Positive: Grossly Intact Abdomen: Negative: Tender Skin: Negative: Rash Musculoskeletal: No Pain Extremities: Absent: edema Results 07/20/20 03:40 07/20/20 03:40 Cardiac Enzymes 07/20/20 Range/Units 03:40 AST 133 H (5-40) units/L CBC 07/20/20 Range/Units 03:40 WBC 10.7 (4.5-11.0) K/mm3 RBC 5.02 (3.65-5.03) M/mm3 Hgb 15.0 (11.8-15.2) gm/dl Hct 45.3 (35.5-45.6) % Plt Count 167 (140-440) K/mm3 Comprehensive Metabolic Panel 07/20/20 Range/Units 03:40 Sodium 147 H (137-145) mmol/L Potassium 3.9 D (3.6-5.0) mmol/L Chloride 106.0 (98-107) mmol/L Carbon Dioxide 19 L D (22-30) mmol/L BUN 49 H (9-20) mg/dL Creatinine 3.3 H (0.8-1.3) mg/dL Glucose 169 H (75-100) mg/dL Calcium 8.4 (8.4-10.2) mg/dL AST 133 H (5-40) units/L ALT 73 H (7-56) units/L Alkaline Phosphatase 86 (35-129) units/L Total Protein 7.1 (6.3-8.2) g/dL Albumin 3.6 L (3.9-5) g/dL - Imaging and Cardiology Echo: pending EKG: report reviewed, image reviewed EKG interpretations - Telemetry EKG Rhythm: Sinus Rhythm - EKG Supraventricular dysrhythmia: atrial fibrillation Assessment and Plan Admission ECG shows AFib with HR 83bpm. On evaluation, pt is noted to be in NSR with [facility] PACs. Per discharge summary from [facility] in 10/2014, pt is known to have a history of paroxysmal atrial fibrillation. Pt does not appear to have been taking OAC at home for unknown reasons. Unless contraindicated, he would benefit from adjunct faculty for medical terminology systemic AC. TSH elevated - further eval/management per primary. Wean off vasopressor support and initiate BB if BPs permit. Can consider amiodarone if necessary for HR control if BPs remain low. Obtain echo. Will follow. The patient has been seen in conjunction with Dr. Stanley who agrees with the assessment and plan of care. - Patient Problems (1) Paroxysmal atrial fibrillation with rapid ventricular response Current Visit: Yes Status: Chronic (2) AMS (altered mental status) Current Visit: Yes Status: Acute Plan to address problem: head CT with NAF (3) Sepsis Current Visit: Yes Status: Suspected (4) Hypotension Current Visit: Yes Status: Acute Qualifiers: Hypotension type: unspecified hypotension type Qualified Code(s): I95.9 - Hypotension, unspecified (5) UTI (urinary tract infection) Current Visit: Yes Status: Acute (6) Acute on chronic renal failure Current Visit: Yes Status: Acute (7) History of CVA (cerebrovascular accident) Current Visit: Yes Status: Chronic (8) History of DVT (deep vein thrombosis) Current Visit: Yes Status: Chronic (9) Presence of IVC filter Current Visit: Yes Status: Chronic (10) Cardiomyopathy Current Visit: Yes Status: Chronic (11) Hypokalemia Current Visit: Yes Status: Resolved
--- NOTE | 2020-07-20 15:52 | Consultation ---
History of Present Illness - Reason for Consult Consult date: 07/20/20 acute renal failure - History of Present Illness This is a 60 year old male who presented for evaluation of AMS. Patient was unresponsive at home and in Afib requiring Cardioversion by ERMS Patient is currently seen in E.R awake and alert. Patient states he has not eaten in 2 days and has been vomiting. Patient currently has urine in his urinal that is tea colored appearing. His serum creatinien is noted to be elvated at 3.3. Patient states he was not told of having abnormal renal labs in the past. Patient has history of Afib, Hypertension, CVA and DVT. We are being consulted for management of this patient's Acute Renal Failure. Past History Past Medical History: atrial fib, arrhythmia, anemia, hypertension, other Past Surgical History: No surgical history Social history: no significant social history Family history: no significant family history Medications and Allergies Allergies Allergy/AdvReac Type Severity Reaction Status Date / Time No Known Allergies Allergy Unverified 07/19/20 14:28 Active Meds: Active Medications Acetaminophen (Tylenol) 650 mg PO Q4H PRN PRN Reason: Pain MILD(1-3)/Fever >100.5/HAZEL Famotidine (Pepcid) 20 mg IV QAM EUNICE Last Admin: 07/20/20 11:23 Dose: 20 mg Documented by: Norepinephrine (Levophed Drip 4 Mg/Ns 250 Ml) 4 mg in 250 mls @ 7.5 mls/hr IV TITR [facility]; Protocol Last Admin: 07/20/20 08:00 Dose: 6 mcg/min, 22.5 mls/hr Documented by: Sodium Chloride (Nacl 0.9% 1000 Ml) 1,000 mls @ 100 mls/hr IV DIRECT [facility] Last Admin: 07/19/20 23:25 Dose: 100 mls/hr Documented by: Ceftriaxone Sodium (Rocephin/Ns 1 Gm/50 Ml) 1 gm in 50 mls @ 100 mls/hr IV Q24HR [facility]; Protocol Last Admin: 07/20/20 11:23 Dose: 100 mls/hr Documented by: Metoclopramide HCl (Reglan) 5 mg IV Q6H PRN PRN Reason: Nausea And Vomiting Morphine Sulfate (Morphine) 2 mg IV Q4H PRN PRN Reason: Pain, Moderate (4-6) Last Admin: 07/20/20 11:45 Dose: 2 mg Documented by: Morphine Sulfate (Morphine) 4 mg IV Q4H PRN PRN Reason: Pain , Severe (7-10) Ondansetron HCl (Zofran) 4 mg IV Q8H PRN PRN Reason: Nausea And Vomiting Last Admin: 07/19/20 23:40 Dose: 4 mg Documented by: Sodium Chloride (Sodium Chloride Flush Syringe 10 Ml) 10 ml IV BID [facility] Last Admin: 07/20/20 11:23 Dose: 10 ml Documented by: Sodium Chloride (Sodium Chloride Flush Syringe 10 Ml) 10 ml IV PRN PRN PRN Reason: LINE FLUSH Review of Systems Constitutional: fatigue, weakness, poor appetite, no weight loss, no weight gain, no fever Ears, nose, mouth and throat: no ear pain, no ear discharge, no tinnitis, no decreased hearing, no nose pain, no nasal congestion, no nasal discharge Cardiovascular: rapid/irregular heart beat, no chest pain, no orthopnea, no edema, no syncope, no lightheadedness, no shortness of breath, no dyspnea on exertion Respiratory: no cough, no cough with sputum, no excessive sputum, no hemoptysis, no shortness of breath, no dyspnea on exertion Gastrointestinal: nausea, vomiting, no abdominal pain, no diarrhea, no con stipation, no change in bowel habits, no hematemesis Genitourinary Male: no dysuria, no hematuria, no flank pain, no discharge, no urinary frequency, no urinary hesitancy, no nocturia Rectal: no pain, no incontinence, no bleeding, no itching Musculoskeletal: no neck stiffness, no neck pain, no shooting arm pain, no arm numbness/tingling, no low back pain Integumentary: no rash, no pruritis, no sores, no wounds, no jaundice Neurological: weakness, no paralysis, no parathesias, no numbness, no tingling, no seizures Psychiatric: change in appetite, no anxiety, no memory loss, no change in sleep habits, no sleep disturbances, no insomnia, no hypersomnia Endocrine: no cold intolerance, no heat intolerance, no polyphagia, no excessive thirst, no polydipsia, no polyuria, no nocturia Exam - Vital Signs Vital signs: Vital Signs Temp Pulse Resp 95.5 F L 155 H 30 H 07/19/20 13:30 07/19/20 13:30 07/19/20 13:30 - General Appearance General appearance: well-developed, appears stated age, fatigue EENT: ATNC, PERRL, hearing intact, vision intact Neck: Present: neck supple, trachea midline Respiratory: Decreased Breath Sounds Heart: S1S2 Gastrointestinal: Present: normoactive bowel sounds Integumentary: hyperpigmentation, other (Has Hyperpigmentation to left half of face) Neurologic: alert and oriented x3 Musculoskeletal: Present: other (No edema) Results - Lab Results 07/20/20 03:40 07/20/20 03:40 Most recent lab results Calcium 8.4 mg/dL (8.4-10.2) 07/20/20 03:40 Magnesium 2.40 mg/dL (1.7-2.3) H 07/19/20 13:48 Assessment and Plan Acute Renal Failure secondary IATN vs Prerenal: -Serum creatinine 3.3 today, baseline unknown -Obtain renal ultrasound to rule out obstruction -UOP recorded is only 175, place irving for strict I/O's -CXR: no acute findings -On IV hydration with NS@ 100 ml/hr -Hypotension-on Levophed drip -Echocardiogram-pending per Cardiology -Obtain urine lytes, eosinophils and protein labs -Obtain daily weights -Avoid Nephrotoxic agents -No acute indication for DOCTOR OF DENTAL MEDICINE -Monitor renal function closely
--- NOTE | 2020-07-20 18:05 | Ultrasound Report ---
ULTRASOUND RENAL INDICATION: Renal failure. COMPARISON: No relevant prior imaging study available. FINDINGS: RIGHT KIDNEY: Size: 11.2 cm. Echogenicity: Echogenic. Cortical thickness: 2.0 cm. Hydronephrosis: None. Cyst or mass: Several simple cysts, largest of which measures 5.7 cm lower pole right kidney. Stones : None. LEFT KIDNEY: Size: 11.0; cm. Echogenicity: Echogenic. Cortical thickness: 2.1 cm. Hydronephrosis: None. Cyst or mass: Several simple cysts, largest of which measures 1.1 cm. Stones: None. Urinary Bladder: No significant abnormality. Free Fluid: None. Additional Findings: None. IMPRESSION 1. Echogenic kidneys characteristic for medical renal disease. No hydronephrosis. 2. Simple bilateral renal cysts. Signer Name: Thaddeus Noland MD Signed: 07/20/2020 6:01 PM Workstation Name: [id number]
[2020-07-20 18:30] LABS: Creatinine,Urine 110.3 mg/dL (0.1-20.0)
[2020-07-20 18:31] LABS: Creatinine,Urine 111.4 mg/dL (0.1-20.0); Protein/Creatinine Ratio,Urine 0.57
[2020-07-20] MEDS ORDERED: AMIODARONE 150 MG in DEXTROSE 5% IN WATER 97 ML IV ONE (21:37)
[2020-07-20] MEDS: AMIODARONE 900 MG in DEXTROSE 5% IN WATER 482 ML IV SCH (22:14)
[2020-07-21] MEDS: ONDANSETRON 4 MG/2 ML INJ IV PRN ×2 (02:11→15:50)
[2020-07-21 05:47] LABS: Calcium 8.7 mg/dL (8.4-10.2)
--- NOTE | 2020-07-21 09:04 | Progress Note ---
Assessment and Plan Assessment and plan: 60-year-old male with history of hypertension and cerebrovascular accident in the past brought in by EMS with a chief complaint of altered mental status. Per EMS the patient was behaving like his normal self approximately 45 minutes prior to arrival. 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 Per EMS the patient was in A. fib with RVR. EMS states that they were unable to obtain a blood pressure. They attempted to cardiovert the patient x2 at 50 J unsuccessfully. The patient does not respond to verbal or tactile stimuli (1) Atrial fibrillation with rapid ventricular response Current Visit: Yes Status: Acute Plan to address problem: Patient was given Cardizem IV in the ER, of Cardizem drip Heart rate improved Cardiology consult appreciated Patient's heart rate is in the 80s but irregularly irregular Echocardiogram ordered (2) Hypotension Current Visit: Yes Status: Acute Qualifiers: Hypotension type: unspecified hypotension type Qualified Code(s): I95.9 - Hypotension, unspecified Plan to address problem: Differential diagnosis of septic shock versus iatrogenic IV fluids for now IV Rocephin and vancomycin (3) Sepsis Current Visit: Yes Status: Suspected Plan to address problem: Sepsis and differential diagnosis Patient is hypotensive. Currently stable Patient has UTI with white blood cells of 110 in the urine Continue with IV ceftriaxone Ordered urine culture (4) History of hypertension Current Visit: Yes Status: Chronic Plan to address problem: We will hold antihypertensives for now (5) JESSIKA (acute kidney injury) Current Visit: Yes Status: Acute Plan to address problem: IV fluids for now Possible ATN Nephrology consult requested (6) Hypokalemia Current Visit: Yes Status: Resolved Plan to address problem: Corrected back to normal (7) DVT prophylaxis Current Visit: Yes Status: Acute Plan to address problem: Heparin subcu and GI prophylaxis Disposition; transfer to the floor. History Interval history: Patient was seen and evaluated this morning Hospitalist Physical - Constitutional Vitals: Temp Pulse Resp BP Pulse Ox 97.5 F L 98 H 26 H 105/74 100 07/21/20 04:00 07/21/20 06:30 07/21/20 06:30 07/21/20 06:30 07/21/20 06:30 General appearance: Present: no acute distress, well-nourished HEART Score - HEART Score Age: 45-65 Risk factors: 1-2 risk factors Troponin: Troponin T 0.024 ng/mL (0.00-0.029) 07/19/20 13:48 Troponin: 1-3x normal limit - Critical Actions Critical Actions: 4-6 pts:12-16.6% risk of adverse cardiac event. Should be admitted Results - Labs CBC & Chem 7: 07/20/20 03:40 07/21/20 05:17 Labs: Laboratory Last Values WBC 10.7 K/mm3 (4.5-11.0) 07/20/20 03:40 RBC 5.02 M/mm3 (3.65-5.03) 07/20/20 03:40 Hgb 15.0 gm/dl (11.8-15.2) 07/20/20 03:40 Hct 45.3 % (35.5-45.6) 07/20/20 03:40 MCV 90 fl (84-94) 07/20/20 03:40 MCH 30 pg (28-32) 07/20/20 03:40 MCHC 33 % (32-34) 07/20/20 03:40 RDW 15.9 % (13.2-15.2) H 07/20/20 03:40 Plt Count 167 K/mm3 (140-440) 07/20/20 03:40 Add Manual Diff Complete 07/20/20 03:40 Total Counted 100 07/20/20 03:40 Seg Neuts % (Manual) 92.0 % (40.0-70.0) H 07/20/20 03:40 Band Neutrophils % 0 % 07/20/20 03:40 Lymphocytes % (Manual) 3.0 % (13.4-35.0) L 07/20/20 03:40 Reactive Lymphs % (Man) 0 % 07/20/20 03:40 Monocytes % (Manual) 5.0 % (0.0-7.3) 07/20/20 03:40 Eosinophils % (Manual) 0 % (0.0-4.3) 07/20/20 03:40 Basophils % (Manual) 0 % (0.0-1.8) 07/20/20 03:40 Metamyelocytes % 0 % 07/20/20 03:40 Myelocytes % 0 % 07/20/20 03:40 Promyelocytes % 0 % 07/20/20 03:40 Blast Cells % 0 % 07/20/20 03:40 Nucleated RBC % Not Reportable 07/20/20 03:40 Seg Neutrophils # Man 9.8 K/mm3 (1.8-7.7) H 07/20/20 03:40 Band Neutrophils # 0.0 K/mm3 07/20/20 03:40 Lymphocytes # (Manual) 0.3 K/mm3 (1.2-5.4) L 07/20/20 03:40 Abs React Lymphs (Man) 0.0 K/mm3 07/20/20 03:40 Monocytes # (Manual) 0.5 K/mm3 (0.0-0.8) 07/20/20 03:40 Eosinophils # (Manual) 0.0 K/mm3 (0.0-0.4) 07/20/20 03:40 Basophils # (Manual) 0.0 K/mm3 (0.0-0.1) 07/20/20 03:40 Metamyelocytes # 0.0 K/mm3 07/20/20 03:40 Myelocytes # 0.0 K/mm3 07/20/20 03:40 Promyelocytes # 0.0 K/mm3 07/20/20 03:40 Blast Cells # 0.0 K/mm3 07/20/20 03:40 WBC Morphology Not Reportable 07/20/20 03:40 Hypersegmented Neuts Not Reportable 07/20/20 03:40 Hyposegmented Neuts Not Reportable 07/20/20 03:40 Hypogranular Neuts Not Reportable 07/20/20 03:40 Smudge Cells Not Reportable 07/20/20 03:40 Toxic Granulation Not Reportable 07/20/20 03:40 Toxic Vacuolation Not Reportable 07/20/20 03:40 Dohle Bodies Not Reportable 07/20/20 03:40 Pelger-Huet Anomaly Not Reportable 07/20/20 03:40 Lilliam Rods Not Reportable 07/20/20 03:40 Platelet Estimate Consistent w auto 07/20/20 03:40 Clumped Platelets Not Reportable 07/20/20 03:40 Plt Clumps, EDTA Not Reportable 07/20/20 03:40 Large Platelets Not Reportable 07/20/20 03:40 Giant Platelets Not Reportable 07/20/20 03:40 Platelet Satelliting Not Reportable 07/20/20 03:40 Plt Morphology Comment Not Reportable 07/20/20 03:40 RBC Morphology Not Reportable 07/20/20 03:40 Dimorphic RBCs Not Reportable 07/20/20 03:40 Polychromasia Not Reportable 07/20/20 03:40 Hypochromasia Not Reportable 07/20/20 03:40 Poikilocytosis Not Reportable 07/20/20 03:40 Anisocytosis 1+ 07/20/20 03:40 Microcytosis Not Reportable 07/20/20 03:40 Macrocytosis Not Reportable 07/20/20 03:40 Spherocytes Not Reportable 07/20/20 03:40 Pappenheimer Bodies Not Reportable 07/20/20 03:40 Sickle Cells Not Reportable 07/20/20 03:40 Target Cells Not Reportable 07/20/20 03:40 Tear Drop Cells Not Reportable 07/20/20 03:40 Ovalocytes Not Reportable 07/20/20 03:40 Helmet Cells Not Reportable 07/20/20 03:40 [place] Bodies Not Reportable 07/20/20 03:40 [place] Rings Not Reportable 07/20/20 03:40 [place] Cells Not Reportable 07/20/20 03:40 Bite Cells Not Reportable 07/20/20 03:40 Crenated Cell Not Reportable 07/20/20 03:40 Elliptocytes Not Reportable 07/20/20 03:40 Acanthocytes (Spur) Not Reportable 07/20/20 03:40 Rouleaux Not Reportable 07/20/20 03:40 Hemoglobin C Crystals Not Reportable 07/20/20 03:40 Schistocytes Not Reportable 07/20/20 03:40 Malaria parasites Not Reportable 07/20/20 03:40 Philipp Bodies Not Reportable 07/20/20 03:40 Hem Pathologist Commnt No 07/20/20 03:40 PT 18.5 Sec. (12.2-14.9) H 07/19/20 13:48 INR 1.51 (0.87-1.13) H 07/19/20 13:48 APTT 32.6 Sec. (24.2-36.6) 07/19/20 13:48 Sodium 149 mmol/L (137-145) H 07/21/20 05:17 Potassium 3.8 mmol/L (3.6-5.0) 07/21/20 05:17 Chloride 111.4 mmol/L (98-107) H 07/21/20 05:17 Carbon Dioxide 21 mmol/L (22-30) L 07/21/20 05:17 Anion Gap 20 mmol/L 07/21/20 05:17 BUN 66 mg/dL (9-20) H 07/21/20 05:17 Creatinine 3.2 mg/dL (0.8-1.3) H 07/21/20 05:17 Estimated GFR 24 ml/min 07/21/20 05:17 BUN/Creatinine Ratio 21 % 07/21/20 05:17 Glucose 141 mg/dL (75-100) H 07/21/20 05:17 POC Glucose 139 (70-105) H 07/21/20 00:33 Hemoglobin A1c 5.7 % (4-6) 07/20/20 03:40 Calcium 8.7 mg/dL (8.4-10.2) 07/21/20 05:17 Phosphorus 4.00 mg/dL (2.5-4.5) 07/21/20 05:17 Magnesium 2.40 mg/dL (1.7-2.3) H 07/19/20 13:48 Total Bilirubin 0.30 mg/dL (0.1-1.2) 07/20/20 03:40 AST 133 units/L (5-40) H 07/20/20 03:40 ALT 73 units/L (7-56) H 07/20/20 03:40 Alkaline Phosphatase 86 units/L (35-129) 07/20/20 03:40 Total Creatine Kinase 280 units/L (55-170) H 07/19/20 13:48 CK-MB (CK-2) 4.6 ng/mL (0.0-4.0) H 07/19/20 13:48 CK-MB (CK-2) Rel Index 1.6 (0-4) 07/19/20 13:48 Troponin T 0.024 ng/mL (0.00-0.029) 07/19/20 13:48 NT-Pro-B Natriuret Pep 1008 pg/mL (0-900) H 07/19/20 13:48 Total Protein 7.1 g/dL (6.3-8.2) 07/20/20 03:40 Albumin 3.6 g/dL (3.9-5) L 07/20/20 03:40 Albumin/Globulin Ratio 1.0 % 07/20/20 03:40 TSH 5.460 mlU/mL (0.270-4.200) H 07/19/20 13:48 Free T4 1.17 ng/dL (0.76-1.46) 07/19/20 13:48 Urine Color Mylene (Yellow) 07/19/20 Unknown Urine Turbidity Cloudy (Clear) 07/19/20 Unknown Urine pH 7.0 (5.0-7.0) 07/19/20 Unknown Ur Specific [place] 1.017 (1.003-1.030) 07/19/20 Unknown Urine Protein 100 mg/dl mg/dL (Negative) 07/19/20 Unknown Urine Glucose (UA) Neg mg/dL (Negative) 07/19/20 Unknown Urine Ketones Neg mg/dL (Negative) 07/19/20 Unknown Urine Blood Lg (Negative) 07/19/20 Unknown Urine Nitrite Neg (Negative) 07/19/20 Unknown Urine Bilirubin Neg (Negative) 07/19/20 Unknown Urine Urobilinogen < 2.0 mg/dL (<2.0) 07/19/20 Unknown Ur Leukocyte Esterase Lg (Negative) 07/19/20 Unknown Urine WBC (Auto) 110.0 /HPF (0.0-6.0) H 07/19/20 Unknown Urine RBC (Auto) 68.0 /HPF (0.0-6.0) 07/19/20 Unknown U Epithel Cells (Auto) 1.0 /HPF (0-13.0) 07/19/20 Unknown Urine Bacteria (Auto) 4+ /HPF (Negative) 07/19/20 Unknown Urine Mucus Few /HPF 07/19/20 Unknown Urine Eosinophils None seen (None Seen) 07/20/20 Unknown Urine Creatinine 110.3 mg/dL (0.1-20.0) H 07/20/20 Unknown Urine Creatinine 111.4 mg/dL (0.1-20.0) H 07/20/20 Unknown Protein/Creatinin Ratio 0.57 07/20/20 Unknown Urine Sodium 41 mmol/L 07/20/20 Unknown Urine Total Protein 63 mg/dL (5-11.8) H 07/20/20 Unknown Urine Total Protein 63 mg/dL (5-11.8) H 07/20/20 Unknown Plasma/Serum Alcohol < 0.01 % (0-0.07) 07/19/20 13:48 - Diagnostic Impressions Diagnostic Impressions: Echocardiogram 07/20/20 09:12 Transthoracic Echocardiogram Indication: SOB BP: 101/77 Conclusions *The study is technically limited due to poor parasternal windows. *The study quality is technically difficult. Patient heart rate is iiregularly irregular,making interpretaion difficult. *The estimated ejection fraction is 45-50%. *Abnormal left ventricular diastolic filling is observed, consistent with impaired relaxation. *The right ventricular cavity size is normal. *The mitral valve leaflets are mildly thickened. *The right ventricular systolic pressure is calculated at 19 mmHg. Findings Procedure Info: The study quality is technically difficult. The study is technically limited due to poor parasternal windows. Left Ventricle: The estimated ejection fraction is 45-50%. Abnormal septal motion noted. Abnormal left ventricular diastolic filling is observed, consistent with impaired relaxation. Left Atrium: The left atrial chamber size is normal. Right Ventricle: The right ventricular cavity size is normal. Right Atrium: The right atrial cavity size is normal. Aortic Valve: The aortic valve leaflets are mildly thickened. There is trace of aortic regurgitation. Mitral Valve: The mitral valve leaflets are mildly thickened. Tricuspid Valve: The tricuspid valve leaflets are normal. There is trace tricuspid regurgitation. The right ventricular systolic pressure is calculated at 19 mmHg. Pericardium: There is no pericardial effusion. Measurements Volumes/Mass Name Value Normal Range LA ESV SP 4CH (A/L) 24.56 ml - LA ESV SP 2CH (A/L) 24.96 ml - LA ESV BP (A/L) 25.22 ml - LA ESV BP (A/L) index 13.27 ml/m2 - LA ESV SP 4CH (MOD) 22.25 ml - LA ESV SP 2CH (MOD) 24.68 ml - LA ESV BP (MOD) 23.72 ml - LA ESV BP (MOD) index 12.48 ml/m2 - Diastolic/Systolic Function Name Value Normal Range MV E-wave Vmax 0.36 m/sec - MV deceleration time 245.25 msec - MV A-wave Vmax 0.62 m/sec - MV E:A ratio 0.58 ratio - Aortic Valve Name Value Normal Range AV Vmax 1.35 m/sec - AV VTI 20.3 cm - AV peak gradient 7.33 mmHg - AV mean gradient 4.5 mmHg - LVOT Vmax 1.1 m/sec - LVOT VTI 15.68 cm - LVOT peak gradient 4.97 mmHg - LVOT mean gradient 2.72 mmHg - Tricuspid Valve Name Value Normal Range TR Vmax 2 m/sec - TR peak gradient 16 mmHg - RAP 3 mmHg - RVSP 19 mmHg - Tineo/IV: Voiding Method Urinal IV Catheter Type [Right CVL Femoral] IV Catheter Type [Right Hand] INT / Saline Lock IV Catheter Type [Right INT / Saline Lock Forearm] Active Medications - Current Medications Current Medications: Generic Name Dose Route Start Last Admin Trade Name Freq PRN Reason Stop Dose Admin Acetaminophen 650 mg 07/19/20 22:45 Tylenol PO Q4H PRN Pain MILD(1-3)/Fever >100.5/HAZEL Famotidine 20 mg 07/19/20 23:00 07/20/20 11:23 Pepcid IV 20 mg QAM EUNICE Administration Norepinephrine 4 mg in 250 mls @ 7.5 mls/hr 07/19/20 15:00 07/20/20 19:35 Levophed Drip 4 Mg/Ns 250 Ml IV 0 mcg/min TITR EUNICE 0 mls/hr Titration Protocol 2 MCG/MIN Sodium Chloride 1,000 mls @ 100 mls/hr 07/19/20 22:45 07/19/20 23:25 Nacl 0.9% 1000 Ml IV 100 mls/hr DIRECT EUNICE Administration Ceftriaxone Sodium 1 gm in 50 mls @ 100 mls/hr 07/20/20 09:00 07/20/20 11:23 Rocephin/Ns 1 Gm/50 Ml IV 07/26/20 10:29 100 mls/hr Q24HR EUNICE Administration Protocol Amiodarone HCl 900 mg/ 500 mls @ 33.333 mls/hr 07/20/20 22:00 07/21/20 04:30 Dextrose IV 0.5 mg/min DIRECT EUNICE 16.667 mls/hr Titration Protocol 1 MG/MIN Metoclopramide HCl 5 mg 07/19/20 22:45 Reglan IV Q6H PRN Nausea And Vomiting Morphine Sulfate 2 mg 07/19/20 22:45 07/20/20 11:45 Morphine IV 2 mg Q4H PRN Administration Pain, Moderate (4-6) Morphine Sulfate 4 mg 07/19/20 22:45 Morphine IV Q4H PRN Pain , Severe (7-10) Ondansetron HCl 4 mg 07/19/20 22:45 07/21/20 02:11 Zofran IV 4 mg Q8H PRN Administration Nausea And Vomiting Sodium Chloride 10 ml 07/20/20 10:00 07/20/20 22:05 Sodium Chloride Flush Syringe 10 Ml IV 10 ml BID EUNICE Administration Sodium Chloride 10 ml 07/19/20 22:45 Sodium Chloride Flush Syringe 10 Ml IV PRN PRN LINE FLUSH
--- NOTE | 2020-07-21 09:46 | Progress Note ---
Assessment and Plan Acute Renal Failure secondary to ATN vs Prerenal: Afib with RVR Sepsis hypoptension -stable Cr but rising BUN -will switch IVF to sodium bicarb 75 meq @ 75 cc/h for acidosis and hypernatremia -Renal ultrasound -ve for hydronephrosis -CXR: no acute findings -Hypotension-on Levophed drip -Obtain urine lytes, eosinophils and protein labs -Obtain daily weights -Avoid Nephrotoxic agents -No acute indication for [employer] -Monitor renal function closely González Vazquez MD [phone] Subjective Date of service: 07/21/20 Principal diagnosis: Atrial fibrillation with RVR, hypotension, UTI Interval history: feels weak but comfortable Objective - Vital Signs Vital signs: Vital Signs - 12hr 07/20/20 07/20/20 07/20/20 21:45 22:01 22:15 Temperature Pulse Rate 111 H 109 H 115 H Pulse Rate [ Right Dorsalis Pedis] Respiratory 24 27 H 29 H Rate Blood Pressure 104/70 96/62 115/69 O2 Sat by Pulse 100 Oximetry 07/20/20 07/20/20 07/20/20 22:31 22:45 23:01 Temperature Pulse Rate 105 H 105 H 110 H Pulse Rate [ Right Dorsalis Pedis] Respiratory 26 H 28 H 22 Rate Blood Pressure 117/57 97/74 89/65 O2 Sat by Pulse 100 100 Oximetry 07/20/20 07/20/20 07/20/20 23:15 23:30 23:31 Temperature Pulse Rate 104 H 120 H 131 H Pulse Rate [ Right Dorsalis Pedis] Respiratory 25 H 21 22 Rate Blood Pressure 107/78 107/78 100/74 O2 Sat by Pulse 99 100 100 Oximetry 07/20/20 07/20/20 07/21/20 23:45 23:46 00:00 Temperature 98.0 F Pulse Rate 119 H 108 H Pulse Rate [ 115 H Right Dorsalis Pedis] Respiratory 21 21 26 H Rate Blood Pressure 100/74 100/74 O2 Sat by Pulse 99 100 99 Oximetry 07/21/20 07/21/20 07/21/20 00:01 00:05 00:15 Temperature Pulse Rate 115 H 94 H 114 H Pulse Rate [ Right Dorsalis Pedis] Respiratory 26 H 28 H 27 H Rate Blood Pressure 91/64 91/64 91/64 O2 Sat by Pulse 99 99 Oximetry 07/21/20 07/21/20 07/21/20 00:31 00:45 01:01 Temperature Pulse Rate 104 H 95 H 94 H Pulse Rate [ Right Dorsalis Pedis] Respiratory 25 H 22 26 H Rate Blood Pressure 94/55 94/55 108/67 O2 Sat by Pulse 98 91 99 Oximetry 07/21/20 07/21/20 07/21/20 01:15 01:31 01:45 Temperature Pulse Rate 121 H 100 H 108 H Pulse Rate [ Right Dorsalis Pedis] Respiratory 35 H 31 H 32 H Rate Blood Pressure 108/67 94/72 118/42 O2 Sat by Pulse 93 94 Oximetry 07/21/20 07/21/20 07/21/20 02:01 02:15 02:30 Temperature Pulse Rate 101 H 94 H 127 H Pulse Rate [ Right Dorsalis Pedis] Respiratory 33 H 27 H 24 Rate Blood Pressure 89/51 89/51 102/59 O2 Sat by Pulse 97 100 98 Oximetry 07/21/20 07/21/20 07/21/20 02:45 03:00 03:16 Temperature Pulse Rate 107 H 98 H 96 H Pulse Rate [ Right Dorsalis Pedis] Respiratory 25 H 26 H 21 Rate Blood Pressure 98/59 105/57 110/64 O2 Sat by Pulse 100 100 Oximetry 07/21/20 07/21/20 07/21/20 03:30 03:46 04:00 Temperature 97.5 F L Pulse Rate 105 H 112 H 101 H Pulse Rate [ 101 H Right Dorsalis Pedis] Respiratory 22 22 20 Rate Blood Pressure 89/67 102/67 102/67 O2 Sat by Pulse 81 L 99 99 Oximetry 07/21/20 07/21/20 07/21/20 04:16 04:30 04:46 Temperature Pulse Rate 106 H 103 H 104 H Pulse Rate [ Right Dorsalis Pedis] Respiratory 26 H 26 H 21 Rate Blood Pressure 100/58 100/58 100/58 O2 Sat by Pulse 90 97 100 Oximetry 07/21/20 07/21/20 07/21/20 05:00 05:16 05:30 Temperature Pulse Rate 107 H 113 H 96 H Pulse Rate [ Right Dorsalis Pedis] Respiratory 20 15 23 Rate Blood Pressure 100/58 113/85 113/85 O2 Sat by Pulse 98 98 Oximetry 07/21/20 07/21/20 07/21/20 05:45 06:00 06:16 Temperature Pulse Rate 130 H 123 H 108 H Pulse Rate [ Right Dorsalis Pedis] Respiratory 21 22 22 Rate Blood Pressure 108/79 108/79 96/61 O2 Sat by Pulse 100 97 Oximetry 07/21/20 06:30 Temperature Pulse Rate 98 H Pulse Rate [ Right Dorsalis Pedis] Respiratory 26 H Rate Blood Pressure 105/74 O2 Sat by Pulse 100 Oximetry - General Appearance General appearance: well-developed, well-nourished, appears stated age EENT: ATNC, PERRL Neck: no JVD, no carotid bruit Respiratory: Present: Clear to Ascultation. Absent: Rales, Ronchi Cardiology: irregular, tachycardia Gastrointestinal: normoactive bowel sounds, no tenderness, no distended, no masses Integumentary: no rash, warm and dry Neurologic: no focal deficit, no asterixis, alert and oriented x3 Musculoskeletal: other (no edema in BLE) Psychiatric: mood/affect appropriate, cooperative - Lab 07/20/20 03:40 07/21/20 05:17 Most recent lab results Calcium 8.7 mg/dL (8.4-10.2) 07/21/20 05:17 Phosphorus 4.00 mg/dL (2.5-4.5) 07/21/20 05:17 Magnesium 2.40 mg/dL (1.7-2.3) H 07/19/20 13:48 Urine Creatinine 110.3 mg/dL (0.1-20.0) H 07/20/20 Unknown Urine Creatinine 111.4 mg/dL (0.1-20.0) H 07/20/20 Unknown Urine Sodium 41 mmol/L 07/20/20 Unknown Urine Total Protein 63 mg/dL (5-11.8) H 07/20/20 Unknown Urine Total Protein 63 mg/dL (5-11.8) H 07/20/20 Unknown Medications & Allergies - Medications Allergies/Adverse Reactions: Allergies No Known Allergies Allergy (Unverified 07/19/20 14:28) Home Medications: Home Medications Medication Instructions Recorded Confirmed Last Taken Type amLODIPine [Norvasc] 5 mg PO DAILY 07/20/20 07/20/20 Unknown History lisinopriL [Zestril TAB] 40 mg PO QDAY 07/20/20 07/20/20 Unknown History Active Medications: Generic Name Dose Route Start Last Admin Trade Name Carringtonq PRN Reason Stop Dose Admin Acetaminophen 650 mg 07/19/20 22:45 Tylenol PO Q4H PRN Pain MILD(1-3)/Fever >100.5/HAZEL Famotidine 20 mg 07/19/20 23:00 07/20/20 11:23 Pepcid IV 20 mg QAM EUNICE Administration Norepinephrine 4 mg in 250 mls @ 7.5 mls/hr 07/19/20 15:00 07/20/20 19:35 Levophed Drip 4 Mg/Ns 250 Ml IV 0 mcg/min TITR EUNICE 0 mls/hr Titration Protocol 2 MCG/MIN Sodium Chloride 1,000 mls @ 100 mls/hr 07/19/20 22:45 07/19/20 23:25 Nacl 0.9% 1000 Ml IV 100 mls/hr DIRECT EUNICE Administration Ceftriaxone Sodium 1 gm in 50 mls @ 100 mls/hr 07/20/20 09:00 07/20/20 11:23 Rocephin/Ns 1 Gm/50 Ml IV 07/26/20 10:29 100 mls/hr Q24HR EUNICE Administration Protocol Amiodarone HCl 900 mg/ 500 mls @ 33.333 mls/hr 07/20/20 22:00 07/21/20 04:30 Dextrose IV 0.5 mg/min DIRECT EUNICE 16.667 mls/hr Titration Protocol 1 MG/MIN Metoclopramide HCl 5 mg 07/19/20 22:45 Reglan IV Q6H PRN Nausea And Vomiting Morphine Sulfate 2 mg 07/19/20 22:45 07/20/20 11:45 Morphine IV 2 mg Q4H PRN Administration Pain, Moderate (4-6) Morphine Sulfate 4 mg 07/19/20 22:45 Morphine IV Q4H PRN Pain , Severe (7-10) Ondansetron HCl 4 mg 07/19/20 22:45 07/21/20 02:11 Zofran IV 4 mg Q8H PRN Administration Nausea And Vomiting Sodium Chloride 10 ml 07/20/20 10:00 07/20/20 22:05 Sodium Chloride Flush Syringe 10 Ml IV 10 ml BID EUNICE Administration Sodium Chloride 10 ml 07/19/20 22:45 Sodium Chloride Flush Syringe 10 Ml IV PRN PRN LINE FLUSH
[2020-07-21] MEDS: FAMOTIDINE 20 MG TAB PO SCH (11:05)
[2020-07-21] MEDS: SODIUM BICARBONATE 75 MEQ in DEXTROSE 5% IN WATER 1,000 ML IV SCH (11:06)
[2020-07-21] MEDS: cefTRIAXone/NS 1 GM/50 ML 1 GM/50 ML BAG IV SCH (11:06)
--- NOTE | 2020-07-21 14:12 | Progress Note ---
Assessment and Plan (1) AMS (altered mental status) Current Visit: Yes Status: Acute Plan to address problem: (2) Acute on chronic renal failure Current Visit: Yes Status: Acute Plan to address problem: Management as per nephrology. Avoid nephrotoxins Replace potassium (3) Atrial fibrillation with rapid ventricular response Current Visit: Yes Status: Acute Plan to address problem: Management as per cardiology. (4) Hypotension Current Visit: Yes Status: Acute Qualifiers: Hypotension type: unspecified hypotension type Qualified Code(s): I95.9 - H ypotension, unspecified Plan to address problem: Improving with IV fluids and midodrine Monitor respiratory status carefully while on fluids Monitor hemodynamics, reanl functions and electrolyte profile (5) Syncope Current Visit: Yes Status: Acute Plan to address problem: Symptom management (6) UTI (urinary tract infection) Current Visit: Yes Status: Acute Plan to address problem: Patient is on ceftriaxone. (7) History of CVA (cerebrovascular accident) Current Visit: Yes Status: Chronic Plan to address problem: Management as per neurology and primary care. Subjective Date of service: 07/21/20 Principal diagnosis: Atrial fibrillation with RVR, hypotension, UTI Interval history: Seen and examined. Vitals, labs, medications, chart reviewed. Awake and alert, denies any chest pain, no shortness of breath. No fevers or chills. Objective - Exam Narrative Exam: Not in cardiopulmonary distress. The patient chronically ill looking Vital signs as documented. Head exam is unremarkable. No scleral icterus . Neck is without jugular venous distension, thyromegaly, or carotid bruits. Lungs are clear to auscultation. Cardiac exam reveals irregular rate and Rhythm. Abdominal exam reveals normal bowel sounds, nontender, no organomegaly. Extremities are nonedematous and both femoral and pedal pulses are normal. MANAGER KNOWLEDGE: Alert and oriented 2. No focal weakness. Vital Signs - 12hr 07/21/20 07/21/20 07/21/20 02:15 02:30 02:45 Temperature Pulse Rate 94 H 127 H 107 H Pulse Rate [ From Monitor] Pulse Rate [ Right Dorsalis Pedis] Respiratory 27 H 24 25 H Rate Respiratory Rate [no pain] Blood Pressure 89/51 102/59 98/59 O2 Sat by Pulse 100 98 Oximetry 07/21/20 07/21/20 07/21/20 03:00 03:16 03:30 Temperature Pulse Rate 98 H 96 H 105 H Pulse Rate [ From Monitor] Pulse Rate [ Right Dorsalis Pedis] Respiratory 26 H 21 22 Rate Respiratory Rate [no pain] Blood Pressure 105/57 110/64 89/67 O2 Sat by Pulse 100 100 81 L Oximetry 07/21/20 07/21/20 07/21/20 03:46 04:00 04:16 Temperature 97.5 F L Pulse Rate 112 H 101 H 106 H Pulse Rate [ From Monitor] Pulse Rate [ 101 H Right Dorsalis Pedis] Respiratory 22 20 26 H Rate Respiratory Rate [no pain] Blood Pressure 102/67 102/67 100/58 O2 Sat by Pulse 99 99 90 Oximetry 07/21/20 07/21/20 07/21/20 04:30 04:46 05:00 Temperature Pulse Rate 103 H 104 H 107 H Pulse Rate [ From Monitor] Pulse Rate [ Right Dorsalis Pedis] Respiratory 26 H 21 20 Rate Respiratory Rate [no pain] Blood Pressure 100/58 100/58 100/58 O2 Sat by Pulse 97 100 98 Oximetry 07/21/20 07/21/20 07/21/20 05:16 05:30 05:45 Temperature Pulse Rate 113 H 96 H 130 H Pulse Rate [ From Monitor] Pulse Rate [ Right Dorsalis Pedis] Respiratory 15 23 21 Rate Respiratory Rate [no pain] Blood Pressure 113/85 113/85 108/79 O2 Sat by Pulse 98 100 Oximetry 07/21/20 07/21/20 07/21/20 06:00 06:16 06:30 Temperature Pulse Rate 123 H 108 H 98 H Pulse Rate [ From Monitor] Pulse Rate [ Right Dorsalis Pedis] Respiratory 22 22 26 H Rate Respiratory Rate [no pain] Blood Pressure 108/79 96/61 105/74 O2 Sat by Pulse 97 100 Oximetry 07/21/20 07/21/20 07/21/20 07:00 07:30 08:00 Temperature 98.1 F Pulse Rate 96 H 134 H 108 H Pulse Rate [ 108 H From Monitor] Pulse Rate [ Right Dorsalis Pedis] Respiratory 18 20 22 Rate Respiratory Rate [no pain] Blood Pressure 82/64 104/74 102/82 O2 Sat by Pulse 99 100 Oximetry 07/21/20 07/21/20 07/21/20 08:30 09:00 09:30 Temperature Pulse Rate 115 H 104 H 111 H Pulse Rate [ From Monitor] Pulse Rate [ Right Dorsalis Pedis] Respiratory 25 H 26 H 25 H Rate Respiratory Rate [no pain] Blood Pressure 120/70 124/108 116/66 O2 Sat by Pulse 96 Oximetry 07/21/20 07/21/20 07/21/20 10:00 10:30 11:00 Temperature Pulse Rate 116 H 120 H 103 H Pulse Rate [ From Monitor] Pulse Rate [ Right Dorsalis Pedis] Respiratory 24 23 24 Rate Respiratory 16 Rate [no pain] Blood Pressure 111/78 119/82 114/65 O2 Sat by Pulse 98 Oximetry 07/21/20 07/21/20 11:30 12:00 Temperature Pulse Rate 107 H 127 H Pulse Rate [ 107 H From Monitor] Pulse Rate [ Right Dorsalis Pedis] Respiratory 22 31 H Rate Respiratory Rate [no pain] Blood Pressure 122/71 113/72 O2 Sat by Pulse 99 Oximetry CBC and BMP: 07/28/20 06:52 07/28/20 06:52 ABG, PT/INR, D-dimer: PT/INR, D-dimer PT 18.5 Sec. (12.2-14.9) H 07/19/20 13:48 INR 1.51 (0.87-1.13) H 07/19/20 13:48 Abnormal lab findings: Abnormal Labs 07/19/20 07/19/20 07/19/20 13:48 13:48 13:48 RDW 15.3 H Seg Neuts % (Manual) Lymphocytes % (Manual) Seg Neutrophils # Man Lymphocytes # (Manual) PT 18.5 H INR 1.51 H Sodium 148 H Potassium 2.9 L* Chloride Carbon Dioxide 11 L BUN 28 H Creatinine 2.5 H Glucose 197 H POC Glucose Magnesium 2.40 H AST ALT Total Creatine Kinase 280 H CK-MB (CK-2) 4.6 H NT-Pro-B Natriuret Pep 1008 H Albumin 3.3 L TSH Urine WBC (Auto) Urine Creatinine Urine Total Protein 07/19/20 07/19/20 07/20/20 13:48 Unknown 03:40 RDW 15.9 H Seg Neuts % (Manual) 92.0 H Lymphocytes % (Manual) 3.0 L Seg Neutrophils # Man 9.8 H Lymphocytes # (Manual) 0.3 L PT INR Sodium Potassium Chloride Carbon Dioxide BUN Creatinine Glucose POC Glucose Magnesium AST ALT Total Creatine Kinase CK-MB (CK-2) NT-Pro-B Natriuret Pep Albumin TSH 5.460 H Urine WBC (Auto) 110.0 H Urine Creatinine Urine Total Protein 07/20/20 07/20/20 07/20/20 03:40 Unknown Unknown RDW Seg Neuts % (Manual) Lymphocytes % (Manual) Seg Neutrophils # Man Lymphocytes # (Manual) PT INR Sodium 147 H Potassium Chloride Carbon Dioxide 19 L D BUN 49 H Creatinine 3.3 H Glucose 169 H POC Glucose Magnesium AST 133 H ALT 73 H Total Creatine Kinase CK-MB (CK-2) NT-Pro-B Natriuret Pep Albumin 3.6 L TSH Urine WBC (Auto) Urine Creatinine 111.4 H 110.3 H Urine Total Protein 63 H 63 H 07/21/20 07/21/20 00:33 05:17 RDW Seg Neuts % (Manual) Lymphocytes % (Manual) Seg Neutrophils # Man Lymphocytes # (Manual) PT INR Sodium 149 H Potassium Chloride 111.4 H Carbon Dioxide 21 L BUN 66 H Creatinine 3.2 H Glucose 141 H POC Glucose 139 H Magnesium AST ALT Total Creatine Kinase CK-MB (CK-2) NT-Pro-B Natriuret Pep Albumin TSH Urine WBC (Auto) Urine Creatinine Urine Total Protein Chest x-ray: image reviewed Allied health notes reviewed: nursing
--- NOTE | 2020-07-21 14:26 | Progress Note ---
Assessment and Plan tte reviewed - EF 45-50%, impaired relaxation. Pt developed AFib RVR overnight and was initiated on amio gtt. currently in paroxysmal AFib with HR 90s -120s. Pt currently weaned off vasopressors. Optimize HR - initiate lopressor and titrate as tolerated, cont IV amio. Per discharge summary from [facility] in 10/2014, pt is known to have a history of paroxysmal atrial fibrillation. Pt does not appear to have been taking OAC at home for unknown reasons. Unless contraindicated, he would benefit from intermediate manager systemic AC. TSH elevated - further eval/management per primary. The patient has been seen in conjunction with Dr. Stanley who agrees with the assessment and plan of care. - Patient Problems (1) Paroxysmal atrial fibrillation with rapid ventricular response Current Visit: Yes Status: Chronic (2) AMS (altered mental status) Current Visit: Yes Status: Acute (3) Sepsis Current Visit: Yes Status: Suspected (4) Hypotension Current Visit: Yes Status: Acute Qualifiers: Hypotension type: unspecified hypotension type Qualified Code(s): I95.9 - Hypotension, unspecified (5) UTI (urinary tract infection) Current Visit: Yes Status: Acute (6) Acute on chronic renal failure Current Visit: Yes Status: Acute (7) History of CVA (cerebrovascular accident) Current Visit: Yes Status: Chronic (8) History of DVT (deep vein thrombosis) Current Visit: Yes Status: Chronic (9) Presence of IVC filter Current Visit: Yes Status: Chronic (10) Cardiomyopathy Current Visit: Yes Status: Chronic (11) Hypokalemia Current Visit: Yes Status: Resolved Subjective Date of service: 07/21/20 Principal diagnosis: Atrial fibrillation with RVR, hypotension, UTI Interval history: pt resting in bed, states he is feeling better today, he is hungry. Pt developed AFib RVR overnight and was initiated on amio gtt. currently in paroxysmal AFib with HR 90s -120s. Objective Last Vital Signs Temp 98.1 F 07/21/20 08:00 Pulse 109 H 07/21/20 14:00 Resp 20 07/21/20 14:00 BP 108/61 07/21/20 14:00 Pulse Ox 100 07/21/20 14:00 - Physical Examination General: No Apparent Distress HEENT: Positive: PERRL, Normocephaly, Mucus Membranes Moist Neck: Positive: neck supple, trachea midline Cardiac: Positive: irregularly irregular, S1/S2 Lungs: Positive: Decreased Breath Sounds Neuro: Positive: Grossly Intact Abdomen: Negative: Tender Skin: Negative: Rash Musculoskeletal: No Pain Extremities: Absent: edema - Labs and Meds Comprehensive Metabolic Panel 07/21/20 Range/Units 05:17 Sodium 149 H (137-145) mmol/L Potassium 3.8 (3.6-5.0) mmol/L Chloride 111.4 H (98-107) mmol/L Carbon Dioxide 21 L (22-30) mmol/L BUN 66 H (9-20) mg/dL Creatinine 3.2 H (0.8-1.3) mg/dL Glucose 141 H (75-100) mg/dL Calcium 8.7 (8.4-10.2) mg/dL - Imaging and Cardiology EKG: report reviewed, image reviewed Echo: pending - Telemetry EKG Rhythm: Atrial Fibrillation
[2020-07-21] MEDS: AMIODARONE 900 MG in DEXTROSE 5% IN WATER 482 ML IV SCH (18:07)
[2020-07-21] MEDS: METOPROLOL TARTRATE 25 MG TAB PO SCH (21:52)
[2020-07-22] MEDS: ONDANSETRON 4 MG/2 ML INJ IV PRN ×2 (01:03→23:22)
[2020-07-22] MEDS: SODIUM BICARBONATE 75 MEQ in DEXTROSE 5% IN WATER 1,000 ML IV SCH (04:25)
[2020-07-22 05:17] LABS: Calcium 8.7 mg/dL (8.4-10.2)
[2020-07-22] MEDS ORDERED: POTASSIUM CHLORIDE ER 20 MEQ TAB PO NR (07:31)
--- NOTE | 2020-07-22 07:38 | Progress Note ---
Assessment and Plan Assessment and plan: 60-year-old male with history of hypertension and cerebrovascular accident in the past brought in by EMS with a chief complaint of altered mental status. Per EMS the patient was behaving like his normal self approximately 45 minutes prior to arrival. The patient's oim consultant found the patient unresponsive and slumped over in the bathroom on the toilet. Per EMS the patient was in A. fib with RVR. EMS states that they were unable to obtain a blood pressure. They attempted to cardiovert the patient x2 at 50 J unsuccessfully. The patient does not respond to verbal or tactile stimuli (1) Atrial fibrillation with rapid ventricular response Current Visit: Yes Status: Acute Plan to address problem: Patient was given Cardizem IV in the ER, off Cardizem drip Heart rate is going up and down went down and in the 40's and went up to in the 110s Cardiology consult appreciated, patient is on amiodarone gtt. and metoprolol. Cardiology said recommend to discontinue amiodarone gtt. Patient's heart rate is in the 80s but irregularly irregular Echocardiogram showed ejection fraction of 40 to 45%, diastolic dysfunction (2) Hypotension Current Visit: Yes Status: Acute Qualifiers: Hypotension type: unspecified hypotension type Qualified Code(s): I95.9 - Hypotension, unspecified Plan to address problem: Differential diagnosis of septic shock versus iatrogenic IV Rocephin Resolved, off IV fluid and Levophed (3) Sepsis Current Visit: Yes Status: Suspected Plan to address problem: Sepsis and differential diagnosis Patient is hypotensive. Currently stable Patient has UTI with white blood cells of 110 in the urine Continue with IV ceftriaxone Follow urine culture (4) History of hypertension Current Visit: Yes Status: Chronic Plan to address problem: We will hold antihypertensives for now (5) JESSIKA (acute kidney injury) Current Visit: Yes Status: Acute Plan to address problem: IV fluids for now Possible ATN BUN and Creatinine trending up creatinine is 3.7 this morning and BUN is 70 Nephrology consult requested, patient is on sodium bicarbonate for acidosis and hypernatremia Renal ultrasound did not show hydronephrosis (6) Hypokalemia Current Visit: Yes Status: Resolved Plan to address problem: Was low this morning and repleted and will check potassium Patient has transaminitis -Could be due to shock liver but going to do repeat LFTs, right upper quadrant ultrasound and acute hepatitis profile Elevated TSH but normal free T4; no acute management needed follow-up as an outpatient (7) DVT prophylaxis Current Visit: Yes Status: Acute Plan to address problem: Heparin subcu and GI prophylaxis Disposition; continue inpatient care History Interval history: Patient was seen and evaluated this morning Patient is complaining nausea but no vomiting Patient denied abdominal pain, denied drinking of alcohol Hospitalist Physical - Physical exam Narrative exam: Not in cardiopulmonary distress. The patient appeared well nourished and normally developed. Vital signs as documented. Head exam is unremarkable. No scleral icterus . Neck is without jugular venous distension, thyromegaly, or carotid bruits. Lungs are clear to auscultation. Cardiac exam reveals regular rate and Rhythm. Abdominal exam reveals normal bowel sounds, nontender, no organomegaly. Extremities are nonedematous and both femoral and pedal pulses are normal. 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 No focal weakness. - Constitutional Vitals: Temp Pulse Resp BP Pulse Ox 98.4 F 113 H 16 113/58 93 07/22/20 03:02 07/22/20 03:28 07/22/20 03:02 07/22/20 03:02 07/22/20 03:02 General appearance: Present: no acute distress, well-nourished HEART Score - HEART Score Age: 45-65 Risk factors: 1-2 risk factors Troponin: Troponin T 0.024 ng/mL (0.00-0.029) 07/19/20 13:48 Troponin: 1-3x normal limit - Critical Actions Critical Actions: 4-6 pts:12-16.6% risk of adverse cardiac event. Should be admitted Results - Labs CBC & Chem 7: 07/20/20 03:40 07/22/20 04:47 Labs: Laboratory Last Values WBC 10.7 K/mm3 (4.5-11.0) 07/20/20 03:40 RBC 5.02 M/mm3 (3.65-5.03) 07/20/20 03:40 Hgb 15.0 gm/dl (11.8-15.2) 07/20/20 03:40 Hct 45.3 % (35.5-45.6) 07/20/20 03:40 MCV 90 fl (84-94) 07/20/20 03:40 MCH 30 pg (28-32) 07/20/20 03:40 MCHC 33 % (32-34) 07/20/20 03:40 RDW 15.9 % (13.2-15.2) H 07/20/20 03:40 Plt Count 167 K/mm3 (140-440) 07/20/20 03:40 Add Manual Diff Complete 07/20/20 03:40 Total Counted 100 07/20/20 03:40 Seg Neuts % (Manual) 92.0 % (40.0-70.0) H 07/20/20 03:40 Band Neutrophils % 0 % 07/20/20 03:40 Lymphocytes % (Manual) 3.0 % (13.4-35.0) L 07/20/20 03:40 Reactive Lymphs % (Man) 0 % 07/20/20 03:40 Monocytes % (Manual) 5.0 % (0.0-7.3) 07/20/20 03:40 Eosinophils % (Manual) 0 % (0.0-4.3) 07/20/20 03:40 Basophils % (Manual) 0 % (0.0-1.8) 07/20/20 03:40 Metamyelocytes % 0 % 07/20/20 03:40 Myelocytes % 0 % 07/20/20 03:40 Promyelocytes % 0 % 07/20/20 03:40 Blast Cells % 0 % 07/20/20 03:40 Nucleated RBC % Not Reportable 07/20/20 03:40 Seg Neutrophils # Man 9.8 K/mm3 (1.8-7.7) H 07/20/20 03:40 Band Neutrophils # 0.0 K/mm3 07/20/20 03:40 Lymphocytes # (Manual) 0.3 K/mm3 (1.2-5.4) L 07/20/20 03:40 Abs React Lymphs (Man) 0.0 K/mm3 07/20/20 03:40 Monocytes # (Manual) 0.5 K/mm3 (0.0-0.8) 07/20/20 03:40 Eosinophils # (Manual) 0.0 K/mm3 (0.0-0.4) 07/20/20 03:40 Basophils # (Manual) 0.0 K/mm3 (0.0-0.1) 07/20/20 03:40 Metamyelocytes # 0.0 K/mm3 07/20/20 03:40 Myelocytes # 0.0 K/mm3 07/20/20 03:40 Promyelocytes # 0.0 K/mm3 07/20/20 03:40 Blast Cells # 0.0 K/mm3 07/20/20 03:40 WBC Morphology Not Reportable 07/20/20 03:40 Hypersegmented Neuts Not Reportable 07/20/20 03:40 Hyposegmented Neuts Not Reportable 07/20/20 03:40 Hypogranular Neuts Not Reportable 07/20/20 03:40 Smudge Cells Not Reportable 07/20/20 03:40 Toxic Granulation Not Reportable 07/20/20 03:40 Toxic Vacuolation Not Reportable 07/20/20 03:40 Dohle Bodies Not Reportable 07/20/20 03:40 Pelger-Huet Anomaly Not Reportable 07/20/20 03:40 Lilliam Rods Not Reportable 07/20/20 03:40 Platelet Estimate Consistent w auto 07/20/20 03:40 Clumped Platelets Not Reportable 07/20/20 03:40 Plt Clumps, EDTA Not Reportable 07/20/20 03:40 Large Platelets Not Reportable 07/20/20 03:40 Giant Platelets Not Reportable 07/20/20 03:40 Platelet Satelliting Not Reportable 07/20/20 03:40 Plt Morphology Comment Not Reportable 07/20/20 03:40 RBC Morphology Not Reportable 07/20/20 03:40 Dimorphic RBCs Not Reportable 07/20/20 03:40 Polychromasia Not Reportable 07/20/20 03:40 Hypochromasia Not Reportable 07/20/20 03:40 Poikilocytosis Not Reportable 07/20/20 03:40 Anisocytosis 1+ 07/20/20 03:40 Microcytosis Not Reportable 07/20/20 03:40 Macrocytosis Not Reportable 07/20/20 03:40 Spherocytes Not Reportable 07/20/20 03:40 Pappenheimer Bodies Not Reportable 07/20/20 03:40 Sickle Cells Not Reportable 07/20/20 03:40 Target Cells Not Reportable 07/20/20 03:40 Tear Drop Cells Not Reportable 07/20/20 03:40 Ovalocytes Not Reportable 07/20/20 03:40 Helmet Cells Not Reportable 07/20/20 03:40 [place] Bodies Not Reportable 07/20/20 03:40 [place] Rings Not Reportable 07/20/20 03:40 Morteza Cells Not Reportable 07/20/20 03:40 Bite Cells Not Reportable 07/20/20 03:40 Crenated Cell Not Reportable 07/20/20 03:40 Elliptocytes Not Reportable 07/20/20 03:40 Acanthocytes (Spur) Not Reportable 07/20/20 03:40 Rouleaux Not Reportable 07/20/20 03:40 Hemoglobin C Crystals Not Reportable 07/20/20 03:40 Schistocytes Not Reportable 07/20/20 03:40 Malaria parasites Not Reportable 07/20/20 03:40 Philipp Bodies Not Reportable 07/20/20 03:40 Hem Pathologist Commnt No 07/20/20 03:40 PT 18.5 Sec. (12.2-14.9) H 07/19/20 13:48 INR 1.51 (0.87-1.13) H 07/19/20 13:48 APTT 32.6 Sec. (24.2-36.6) 07/19/20 13:48 Sodium 149 mmol/L (137-145) H 07/22/20 04:47 Potassium 3.1 mmol/L (3.6-5.0) L 07/22/20 04:47 Chloride 109.6 mmol/L (98-107) H 07/22/20 04:47 Carbon Dioxide 23 mmol/L (22-30) 07/22/20 04:47 Anion Gap 20 mmol/L 07/22/20 04:47 BUN 70 mg/dL (9-20) H 07/22/20 04:47 Creatinine 3.5 mg/dL (0.8-1.3) H 07/22/20 04:47 Estimated GFR 22 ml/min 07/22/20 04:47 BUN/Creatinine Ratio 20 % 07/22/20 04:47 Glucose 136 mg/dL (75-100) H 07/22/20 04:47 POC Glucose 139 (70-105) H 07/21/20 00:33 Hemoglobin A1c 5.7 % (4-6) 07/20/20 03:40 Calcium 8.7 mg/dL (8.4-10.2) 07/22/20 04:47 Phosphorus 4.00 mg/dL (2.5-4.5) 07/21/20 05:17 Magnesium 2.40 mg/dL (1.7-2.3) H 07/19/20 13:48 Total Bilirubin 0.30 mg/dL (0.1-1.2) 07/20/20 03:40 AST 133 units/L (5-40) H 07/20/20 03:40 ALT 73 units/L (7-56) H 07/20/20 03:40 Alkaline Phosphatase 86 units/L (35-129) 07/20/20 03:40 Total Creatine Kinase 280 units/L (55-170) H 07/19/20 13:48 CK-MB (CK-2) 4.6 ng/mL (0.0-4.0) H 07/19/20 13:48 CK-MB (CK-2) Rel Index 1.6 (0-4) 07/19/20 13:48 Troponin T 0.024 ng/mL (0.00-0.029) 07/19/20 13:48 NT-Pro-B Natriuret Pep 1008 pg/mL (0-900) H 07/19/20 13:48 Total Protein 7.1 g/dL (6.3-8.2) 07/20/20 03:40 Albumin 3.6 g/dL (3.9-5) L 07/20/20 03:40 Albumin/Globulin Ratio 1.0 % 07/20/20 03:40 TSH 5.460 mlU/mL (0.270-4.200) H 07/19/20 13:48 Free T4 1.17 ng/dL (0.76-1.46) 07/19/20 13:48 Urine Color Mylene (Yellow) 07/19/20 Unknown Urine Turbidity Cloudy (Clear) 07/19/20 Unknown Urine pH 7.0 (5.0-7.0) 07/19/20 Unknown Ur Specific [place] 1.017 (1.003-1.030) 07/19/20 Unknown Urine Protein 100 mg/dl mg/dL (Negative) 07/19/20 Unknown Urine Glucose (UA) Neg mg/dL (Negative) 07/19/20 Unknown Urine Ketones Neg mg/dL (Negative) 07/19/20 Unknown Urine Blood Lg (Negative) 07/19/20 Unknown Urine Nitrite Neg (Negative) 07/19/20 Unknown Urine Bilirubin Neg (Negative) 07/19/20 Unknown Urine Urobilinogen < 2.0 mg/dL (<2.0) 07/19/20 Unknown Ur Leukocyte Esterase Lg (Negative) 07/19/20 Unknown Urine WBC (Auto) 110.0 /HPF (0.0-6.0) H 07/19/20 Unknown Urine RBC (Auto) 68.0 /HPF (0.0-6.0) 07/19/20 Unknown U Epithel Cells (Auto) 1.0 /HPF (0-13.0) 07/19/20 Unknown Urine Bacteria (Auto) 4+ /HPF (Negative) 07/19/20 Unknown Urine Mucus Few /HPF 07/19/20 Unknown Urine Eosinophils None seen (None Seen) 07/20/20 Unknown Urine Creatinine 110.3 mg/dL (0.1-20.0) H 07/20/20 Unknown Urine Creatinine 111.4 mg/dL (0.1-20.0) H 07/20/20 Unknown Protein/Creatinin Ratio 0.57 07/20/20 Unknown Urine Sodium 41 mmol/L 07/20/20 Unknown Urine Total Protein 63 mg/dL (5-11.8) H 07/20/20 Unknown Urine Total Protein 63 mg/dL (5-11.8) H 07/20/20 Unknown Plasma/Serum Alcohol < 0.01 % (0-0.07) 07/19/20 13:48 Microbiology: Microbiology 07/21/20 14:35 Peripheral/Venous Blood Culture - Preliminary Culture in Progress 07/21/20 14:35 Peripheral/Venous Blood Culture - Preliminary Culture in Progress - Diagnostic Impressions Diagnostic Impressions: Echocardiogram 07/20/20 09:12 Transthoracic Echocardiogram Indication: SOB BP: 101/77 Conclusions *The study is technically limited due to poor parasternal windows. *The study quality is technically difficult. Patient heart rate is iiregularly irregular,making interpretaion difficult. *The estimated ejection fraction is 45-50%. *Abnormal left ventricular diastolic filling is observed, consistent with impaired relaxation. *The right ventricular cavity size is normal. *The mitral valve leaflets are mildly thickened. *The right ventricular systolic pressure is calculated at 19 mmHg. Findings Procedure Info: The study quality is technically difficult. The study is technically limited due to poor parasternal windows. Left Ventricle: The estimated ejection fraction is 45-50%. Abnormal septal motion noted. Abnormal left ventricular diastolic filling is observed, consistent with impaired relaxation. Left Atrium: The left atrial chamber size is normal. Right Ventricle: The right ventricular cavity size is normal. Right Atrium: The right atrial cavity size is normal. Aortic Valve: The aortic valve leaflets are mildly thickened. There is trace of aortic regurgitation. Mitral Valve: The mitral valve leaflets are mildly thickened. Tricuspid Valve: The tricuspid valve leaflets are normal. There is trace tricuspid regurgitation. The right ventricular systolic pressure is calculated at 19 mmHg. Pericardium: There is no pericardial effusion. Measurements Volumes/Mass Name Value Normal Range LA ESV SP 4CH (A/L) 24.56 ml - LA ESV SP 2CH (A/L) 24.96 ml - LA ESV BP (A/L) 25.22 ml - LA ESV BP (A/L) index 13.27 ml/m2 - LA ESV SP 4CH (MOD) 22.25 ml - LA ESV SP 2CH (MOD) 24.68 ml - LA ESV BP (MOD) 23.72 ml - LA ESV BP (MOD) index 12.48 ml/m2 - Diastolic/Systolic Function Name Value Normal Range MV E-wave Vmax 0.36 m/sec - MV deceleration time 245.25 msec - MV A-wave Vmax 0.62 m/sec - MV E:A ratio 0.58 ratio - Aortic Valve Name Value Normal Range AV Vmax 1.35 m/sec - AV VTI 20.3 cm - AV peak gradient 7.33 mmHg - AV mean gradient 4.5 mmHg - LVOT Vmax 1.1 m/sec - LVOT VTI 15.68 cm - LVOT peak gradient 4.97 mmHg - LVOT mean gradient 2.72 mmHg - Tricuspid Valve Name Value Normal Range TR Vmax 2 m/sec - TR peak gradient 16 mmHg - RAP 3 mmHg - RVSP 19 mmHg - Tineo/IV: Voiding Method Urinal IV Catheter Type [Right CVL Femoral] IV Catheter Type [Right Hand] INT / Saline Lock IV Catheter Type [Right INT / Saline Lock Forearm] Active Medications - Current Medications Current Medications: Generic Name Dose Route Start Last Admin Trade Name Freq PRN Reason Stop Dose Admin Acetaminophen 650 mg 07/19/20 22:45 Tylenol PO Q4H PRN Pain MILD(1-3)/Fever >100.5/HAZEL Famotidine 20 mg 07/21/20 11:00 07/21/20 11:05 Pepcid PO 20 mg QAM EUNICE Administration Ceftriaxone Sodium 1 gm in 50 mls @ 100 mls/hr 07/20/20 09:00 07/21/20 11:06 Rocephin/Ns 1 Gm/50 Ml IV 07/26/20 10:29 100 mls/hr Q24HR EUNICE Administration Protocol Amiodarone HCl 900 mg/ 500 mls @ 33.333 mls/hr 07/20/20 22:00 07/21/20 18:07 Dextrose IV 0.5 mg/min DIRECT EUNICE 16.667 mls/hr Administration Protocol 1 MG/MIN Sodium Bicarbonate 75 meq/ 1,075 mls @ 75 mls/hr 07/21/20 10:00 07/22/20 04:25 Dextrose IV 75 mls/hr DIRECT EUNICE Administration Metoclopramide HCl 5 mg 07/19/20 22:45 Reglan IV Q6H PRN Nausea And Vomiting Metoprolol Tartrate 25 mg 07/21/20 22:00 07/21/20 21:52 Metoprolol PO Not Given BID EUNICE Morphine Sulfate 2 mg 07/19/20 22:45 07/20/20 11:45 Morphine IV 2 mg Q4H PRN Administration Pain, Moderate (4-6) Morphine Sulfate 4 mg 07/19/20 22:45 Morphine IV Q4H PRN Pain , Severe (7-10) Ondansetron HCl 4 mg 07/19/20 22:45 07/22/20 01:03 Zofran IV 4 mg Q8H PRN Administration Nausea And Vomiting Potassium Chloride 40 meq 07/22/20 07:31 K-Dur PO 07/22/20 07:32 ONCE ONE Sodium Chloride 10 ml 07/20/20 10:00 07/21/20 21:56 Sodium Chloride Flush Syringe 10 Ml IV 10 ml BID EUNICE Administration Sodium Chloride 10 ml 07/19/20 22:45 07/22/20 01:04 Sodium Chloride Flush Syringe 10 Ml IV 10 ml PRN PRN Administration LINE FLUSH
[2020-07-22] MEDS: METOPROLOL TARTRATE 25 MG TAB PO SCH ×3 (09:20→18:04)
[2020-07-22] MEDS: cefTRIAXone/NS 1 GM/50 ML 1 GM/50 ML BAG IV SCH (09:22)
[2020-07-22] MEDS: FAMOTIDINE 20 MG TAB PO SCH (09:23)
--- NOTE | 2020-07-22 10:06 | Progress Note ---
Assessment and Plan tele reviewed - in AFib HR 100s overnight, amio gtt infusing. Optimize HR - d/c amio and increase lopressor dosage to Q6H with hold parameters. Initiate midodrine in setting of borderline low BPs. Per discharge summary from [facility] in 10/2014, pt is known to have a history of paroxysmal atrial fibrillation. Pt does not appear to have been taking OAC at home for unknown reasons. 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 The patient has been seen in conjunction with Dr. Thacker who agrees with the assessment and plan of care. - Patient Problems (1) Paroxysmal atrial fibrillation with rapid ventricular response Current Visit: Yes Status: Chronic (2) AMS (altered mental status) Current Visit: Yes Status: Acute (3) Sepsis Current Visit: Yes Status: Suspected (4) Hypotension Current Visit: Yes Status: Acute Qualifiers: Hypotension type: unspecified hypotension type Qualified Code(s): I95.9 - Hypotension, unspecified (5) UTI (urinary tract infection) Current Visit: Yes Status: Acute (6) Acute on chronic renal failure Current Visit: Yes Status: Acute (7) History of CVA (cerebrovascular accident) Current Visit: Yes Status: Chronic (8) History of DVT (deep vein thrombosis) Current Visit: Yes Status: Chronic (9) Presence of IVC filter Current Visit: Yes Status: Chronic (10) Cardiomyopathy Current Visit: Yes Status: Chronic (11) Hypokalemia Current Visit: Yes Status: Resolved Subjective Date of service: 07/22/20 Principal diagnosis: Atrial fibrillation with RVR, hypotension, UTI Interval history: pt resting in bed, c/o n/v. tele reviewed - in AFib HR 100s overnight, amio gtt infusing. Objective Last Vital Signs Temp 98.4 F 07/22/20 03:02 Pulse 90 07/22/20 09:31 Resp 16 07/22/20 03:02 BP 101/68 07/22/20 09:31 Pulse Ox 93 07/22/20 03:02 - Physical Examination General: No Apparent Distress HEENT: Positive: PERRL, Normocephaly, Mucus Membranes Moist Neck: Positive: neck supple, trachea midline Cardiac: Positive: irregularly irregular, S1/S2 Lungs: Positive: Decreased Breath Sounds Neuro: Positive: Grossly Intact Abdomen: Negative: Tender Skin: Negative: Rash Musculoskeletal: No Pain Extremities: Absent: edema - Labs and Meds Comprehensive Metabolic Panel 07/22/20 Range/Units 04:47 Sodium 149 H (137-145) mmol/L Potassium 3.1 L (3.6-5.0) mmol/L Chloride 109.6 H (98-107) mmol/L Carbon Dioxide 23 (22-30) mmol/L BUN 70 H (9-20) mg/dL Creatinine 3.5 H (0.8-1.3) mg/dL Glucose 136 H (75-100) mg/dL Calcium 8.7 (8.4-10.2) mg/dL - Imaging and Cardiology EKG: report reviewed, image reviewed Echo: report reviewed (EF 45-50%, impaired relaxation. ) - Telemetry EKG Rhythm: Atrial Fibrillation
[2020-07-22] MEDS ORDERED: METOPROLOL TARTRATE 25 MG TAB PO SCH (11:30)
--- NOTE | 2020-07-22 11:31 | Progress Note ---
Assessment and Plan Assessment: Acute Renal Failure secondary IATN vs Prerenal on CKD: Hypotension: Afib: Hypokalemia: Plan: -Renal labs reviewed. Serum creatinine 3.5 today, yesterday's was 3.2, baseline unknown -Renal ultrasound- Medical renal disease. Simple bilateral renal cysts. No obstruction. -CXR: no acute findings -Will switch IVF to 1/2 NS@75 ml/hr -Hypotension-S/P Levophed drip. 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 Had nausea earlier. Objective - Vital Signs Vital signs: Vital Signs - 12hr 07/22/20 07/22/20 07/22/20 03:02 03:28 09:31 Temperature 98.4 F Pulse Rate 56 L 113 H 90 Respiratory 16 Rate Blood Pressure 113/58 101/68 O2 Sat by Pulse 93 Oximetry - General Appearance General appearance: appears stated age, other (No acute distress) EENT: ATNC Neck: no JVD, supple Respiratory: Present: Clear to Ascultation Cardiology: S1S2 Gastrointestinal: normoactive bowel sounds Integumentary: warm and dry Neurologic: other (Resting) Musculoskeletal: other (No edema) - Lab 07/20/20 03:40 07/22/20 04:47 Most recent lab results Calcium 8.7 mg/dL (8.4-10.2) 07/22/20 04:47 Phosphorus 4.00 mg/dL (2.5-4.5) 07/21/20 05:17 Magnesium 2.40 mg/dL (1.7-2.3) H 07/19/20 13:48 Urine Creatinine 110.3 mg/dL (0.1-20.0) H 07/20/20 Unknown Urine Creatinine 111.4 mg/dL (0.1-20.0) H 07/20/20 Unknown Urine Sodium 41 mmol/L 07/20/20 Unknown Urine Total Protein 63 mg/dL (5-11.8) H 07/20/20 Unknown Urine Total Protein 63 mg/dL (5-11.8) H 07/20/20 Unknown Medications & Allergies - Medications Allergies/Adverse Reactions: Allergies No Known Allergies Allergy (Unverified 07/19/20 14:28) Home Medications: Home Medications Medication Instructions Recorded Confirmed Last Taken Type amLODIPine [Norvasc] 5 mg PO DAILY 07/20/20 07/20/20 Unknown History lisinopriL [Zestril TAB] 40 mg PO QDAY 07/20/20 07/20/20 Unknown History Active Medications: Generic Name Dose Route Start Last Admin Trade Name Freq PRN Reason Stop Dose Admin Acetaminophen 650 mg 07/19/20 22:45 Tylenol PO Q4H PRN Pain MILD(1-3)/Fever >100.5/HAZEL Famotidine 20 mg 07/21/20 11:00 07/22/20 09:23 Pepcid PO 20 mg QAM EUNICE Administration Ceftriaxone Sodium 1 gm in 50 mls @ 100 mls/hr 07/20/20 09:00 07/22/20 09:22 Rocephin/Ns 1 Gm/50 Ml IV 07/26/20 10:29 100 mls/hr Q24HR EUNICE Administration Protocol Sodium Bicarbonate 75 meq/ 1,075 mls @ 75 mls/hr 07/21/20 10:00 07/22/20 04:25 Dextrose IV 75 mls/hr DIRECT EUNICE Administration Metoclopramide HCl 5 mg 07/19/20 22:45 Reglan IV Q6H PRN Nausea And Vomiting Metoprolol Tartrate 25 mg 07/22/20 18:00 Metoprolol PO Q6HR EUNICE Midodrine 5 mg 07/22/20 12:00 Proamatine PO TID@0800,1200,1600 EUNICE Morphine Sulfate 2 mg 07/19/20 22:45 07/20/20 11:45 Morphine IV 2 mg Q4H PRN Administration Pain, Moderate (4-6) Morphine Sulfate 4 mg 07/19/20 22:45 Morphine IV Q4H PRN Pain , Severe (7-10) Ondansetron HCl 4 mg 07/19/20 22:45 07/22/20 01:03 Zofran IV 4 mg Q8H PRN Administration Nausea And Vomiting Sodium Chloride 10 ml 07/20/20 10:00 07/22/20 09:23 Sodium Chloride Flush Syringe 10 Ml IV 10 ml BID EUNICE Administration Sodium Chloride 10 ml 07/19/20 22:45 07/22/20 01:04 Sodium Chloride Flush Syringe 10 Ml IV 10 ml PRN PRN Administration LINE FLUSH
[2020-07-22] MEDS: MIDODRINE 5 MG TAB PO SCH ×2 (12:03→15:02)
[2020-07-22] MEDS: SODIUM CHLORIDE 0.45% 1000 ML 1,000 ML IV SCH ×2 (12:03→22:41)
--- NOTE | 2020-07-22 13:56 | Progress Note ---
Assessment and Plan Patient sleeping on room air. No acute respiratory distress. O2 saturation 93%. Patient running low grade temp. No leukocytosis. Chest xray done on 07/19/20 reported No acute findings. - Patient Problems (1) AMS (altered mental status) Current Visit: Yes Status: Acute Plan to address problem: Management as per primary care. (2) Acute on chronic renal failure Current Visit: Yes Status: Acute Plan to address problem: Management as per nephrology. (3) Atrial fibrillation with rapid ventricular response Current Visit: Yes Status: Acute Plan to address problem: Management as per cardiology. (4) Hypotension Current Visit: Yes Status: Acute Qualifiers: Hypotension type: unspecified hypotension type Qualified Code(s): I95.9 - Hypotension, unspecified Plan to address problem: Improved. 98/63. Recommend to watch blood pressure closely. Patient is on Midodrine and I/v Fluids. (5) Syncope Current Visit: Yes Status: Acute Plan to address problem: Patient sleeping at this time. Management as per Neurology and primary care. (6) UTI (urinary tract infection) Current Visit: Yes Status: Acute Plan to address problem: Patient is on ceftriaxone. (7) History of CVA (cerebrovascular accident) Current Visit: Yes Status: Chronic Plan to address problem: Management as per neurology and primary care. Subjective Date of service: 07/22/20 Principal diagnosis: Atrial fibrillation with RVR, hypotension, UTI Interval history: Patient sleeping on room air. No acute respiratory distress. O2 saturation 93%. Patient running low grade temp. No leukocytosis. Chest xray done on 07/19/20 reported No acute findings. Objective Vital Signs - 12hr 07/22/20 07/22/20 07/22/20 03:02 03:28 09:31 Temperature 98.4 F Pulse Rate 56 L 113 H 90 Respiratory 16 Rate Blood Pressure 113/58 101/68 O2 Sat by Pulse 93 Oximetry 07/22/20 11:50 Temperature 98.8 F Pulse Rate 47 L Respiratory 22 Rate Blood Pressure 114/79 O2 Sat by Pulse 95 Oximetry Constitutional: no acute distress, asleep Eyes: non-icteric ENT: oropharynx moist Neck: supple, no lymphadenopathy Ascultation: Bilateral: clear Cardiovascular: regular rate and rhythm Gastrointestinal: normoactive bowel sounds, soft, non-tender Integumentary: other (Black pigmentation on left side of face.) Extremities: no cyanosis, no edema Neurologic: other (Patient sleeping. Unable to evaluate.) Psychiatric: other (Unable to evaluate, Patient sleeping.) CBC and BMP: 07/20/20 03:40 07/22/20 13:01 ABG, PT/INR, D-dimer: PT/INR, D-dimer PT 18.5 Sec. (12.2-14.9) H 07/19/20 13:48 INR 1.51 (0.87-1.13) H 07/19/20 13:48 Abnormal lab findings: Abnormal Labs 07/19/20 07/19/20 07/19/20 13:48 13:48 13:48 RDW 15.3 H Seg Neuts % (Manual) Lymphocytes % (Manual) Seg Neutrophils # Man Lymphocytes # (Manual) PT 18.5 H INR 1.51 H Sodium 148 H Potassium 2.9 L* Chloride Carbon Dioxide 11 L BUN 28 H Creatinine 2.5 H Glucose 197 H POC Glucose Magnesium 2.40 H AST ALT Total Creatine Kinase 280 H CK-MB (CK-2) 4.6 H NT-Pro-B Natriuret Pep 1008 H Albumin 3.3 L TSH Urine WBC (Auto) Urine Creatinine Urine Total Protein 07/19/20 07/19/20 07/20/20 13:48 Unknown 03:40 RDW 15.9 H Seg Neuts % (Manual) 92.0 H Lymphocytes % (Manual) 3.0 L Seg Neutrophils # Man 9.8 H Lymphocytes # (Manual) 0.3 L PT INR Sodium Potassium Chloride Carbon Dioxide BUN Creatinine Glucose POC Glucose Magnesium AST ALT Total Creatine Kinase CK-MB (CK-2) NT-Pro-B Natriuret Pep Albumin TSH 5.460 H Urine WBC (Auto) 110.0 H Urine Creatinine Urine Total Protein 07/20/20 07/20/20 07/20/20 03:40 Unknown Unknown RDW Seg Neuts % (Manual) Lymphocytes % (Manual) Seg Neutrophils # Man Lymphocytes # (Manual) PT INR Sodium 147 H Potassium Chloride Carbon Dioxide 19 L D BUN 49 H Creatinine 3.3 H Glucose 169 H POC Glucose Magnesium AST 133 H ALT 73 H Total Creatine Kinase CK-MB (CK-2) NT-Pro-B Natriuret Pep Albumin 3.6 L TSH Urine WBC (Auto) Urine Creatinine 111.4 H 110.3 H Urine Total Protein 63 H 63 H 07/21/20 07/21/20 07/22/20 00:33 05:17 04:47 RDW Seg Neuts % (Manual) Lymphocytes % (Manual) Seg Neutrophils # Man Lymphocytes # (Manual) PT INR Sodium 149 H 149 H Potassium 3.1 L Chloride 111.4 H 109.6 H Carbon Dioxide 21 L BUN 66 H 70 H Creatinine 3.2 H 3.5 H Glucose 141 H 136 H POC Glucose 139 H Magnesium AST ALT Total Creatine Kinase CK-MB (CK-2) NT-Pro-B Natriuret Pep Albumin TSH Urine WBC (Auto) Urine Creatinine Urine Total Protein Chest x-ray: report reviewed, image reviewed Additional Studies: CHEST 1 VIEW 07/19/2020 3:05 PM INDICATION / CLINICAL INFORMATION: Syncope. COMPARISON: None available. FINDINGS: SUPPORT DEVICES: None. HEART / MEDIASTINUM: No significant abnormality. LUNGS / PLEURA: No significant pulmonary or pleural abnormality. No pneumothorax. ADDITIONAL FINDINGS: No significant additional findings. IMPRESSION: 1. No acute findings.
[2020-07-22 14:19] LABS: Alanine Aminotransferase 70 units/L (7-56); Albumin 2.8 g/dL (3.9-5)
[2020-07-22 14:21] LABS: Hepatitis B Surface Antigen Non-Reactive (Negative); Hepatitis C Virus Antibody Non-Reactive (NonReactive)
[2020-07-22 14:53] LABS: Bilirubin,Direct < 0.2 mg/dL (0-0.2)
[2020-07-23] MEDS: METOPROLOL TARTRATE 25 MG TAB PO SCH ×3 (01:20→22:50)
[2020-07-23] MEDS ORDERED: MIDODRINE 5 MG TAB PO ONE (01:57)
[2020-07-23 06:54] LABS: Albumin 2.9 g/dL (3.9-5)
[2020-07-23] MEDS: MIDODRINE 5 MG TAB PO SCH ×3 (08:30→17:55)
--- NOTE | 2020-07-23 08:31 | Progress Note ---
Assessment and Plan Assessment: Acute Renal Failure secondary IATN vs Prerenal on CKD: Hypotension: Afib: Hypokalemia: Plan: -cont to have rising Cr and BUN, non oliguric, etiology likely ischemic ATN due to low BP - may need HD within 24-48 hours if cont to get worse -cont IVF -Renal ultrasound- Medical renal disease. Simple bilateral renal cysts. No obstruction. -CXR: no acute findings -Hypotension-S/P Levophed drip. On Midorine 5 mg po TID -Echocardiogram-EF 45-50% per Cardiology -No urine eosinophils seen -Obtain daily weights -Avoid Nephrotoxic agents -Continue to monitor renal function closely Subjective Date of service: 07/23/20 Principal diagnosis: Atrial fibrillation with RVR, hypotension, UTI Interval history: no pain or distress Objective - Vital Signs Vital signs: Vital Signs - 12hr 07/22/20 07/23/20 07/23/20 22:00 01:07 05:43 Temperature 98.6 F 98.9 F Pulse Rate 44 L 53 L Pulse Rate [ 47 L From Monitor] Respiratory 18 16 20 Rate Blood Pressure 81/55 104/65 O2 Sat by Pulse 95 94 98 Oximetry 07/23/20 07:52 Temperature 98.0 F Pulse Rate 46 L Pulse Rate [ From Monitor] Respiratory 18 Rate Blood Pressure 99/63 O2 Sat by Pulse 96 Oximetry - Lab 07/20/20 03:40 07/23/20 05:29 Most recent lab results Calcium 9.0 mg/dL (8.4-10.2) 07/23/20 05:29 Phosphorus 4.00 mg/dL (2.5-4.5) 07/21/20 05:17 Magnesium 2.40 mg/dL (1.7-2.3) H 07/19/20 13:48 Urine Creatinine 110.3 mg/dL (0.1-20.0) H 07/20/20 Unknown Urine Creatinine 111.4 mg/dL (0.1-20.0) H 07/20/20 Unknown Urine Sodium 41 mmol/L 07/20/20 Unknown Urine Total Protein 63 mg/dL (5-11.8) H 07/20/20 Unknown Urine Total Protein 63 mg/dL (5-11.8) H 07/20/20 Unknown Medications & Allergies - Medications Allergies/Adverse Reactions: Allergies No Known Allergies Allergy (Unverified 07/19/20 14:28) Home Medications: Home Medications Medication Instructions Recorded Confirmed Last Taken Type amLODIPine [Norvasc] 5 mg PO DAILY 07/20/20 07/20/20 Unknown History lisinopriL [Zestril TAB] 40 mg PO QDAY 07/20/20 07/20/20 Unknown History Active Medications: Generic Name Dose Route Start Last Admin Trade Name Freq PRN Reason Stop Dose Admin Acetaminophen 650 mg 07/19/20 22:45 Tylenol PO Q4H PRN Pain MILD(1-3)/Fever >100.5/HAZEL Famotidine 20 mg 07/21/20 11:00 07/22/20 09:23 Pepcid PO 20 mg QAM EUNICE Administration Ceftriaxone Sodium 1 gm in 50 mls @ 100 mls/hr 07/20/20 09:00 07/22/20 21:05 Rocephin/Ns 1 Gm/50 Ml IV 07/26/20 10:29 Infused Q24HR EUNICE Infusion Protocol Sodium Chloride 1,000 mls @ 75 mls/hr 07/22/20 12:00 07/22/20 22:41 Nacl 0.45% 1000 Ml IV 75 mls/hr DIRECT EUNICE Administration Metoclopramide HCl 5 mg 07/19/20 22:45 07/22/20 18:03 Reglan IV 5 mg Q6H PRN Administration Nausea And Vomiting Metoprolol Tartrate 25 mg 07/22/20 18:00 07/23/20 07:24 Metoprolol PO Not Given Q6HR EUNICE Midodrine 5 mg 07/22/20 12:00 07/22/20 15:02 Proamatine PO 5 mg TID@0800,1200,1600 EUNICE Administration Morphine Sulfate 2 mg 07/19/20 22:45 07/20/20 11:45 Morphine IV 2 mg Q4H PRN Administration Pain, Moderate (4-6) Morphine Sulfate 4 mg 07/19/20 22:45 Morphine IV Q4H PRN Pain , Severe (7-10) Ondansetron HCl 4 mg 07/19/20 22:45 07/22/20 23:22 Zofran IV 4 mg Q8H PRN Administration Nausea And Vomiting Sodium Chloride 10 ml 07/20/20 10:00 07/22/20 22:41 Sodium Chloride Flush Syringe 10 Ml IV 10 ml BID EUNICE Administration Sodium Chloride 10 ml 07/19/20 22:45 07/22/20 01:04 Sodium Chloride Flush Syringe 10 Ml IV 10 ml PRN PRN Administration LINE FLUSH
--- NOTE | 2020-07-23 08:58 | Progress Note ---
Assessment and Plan Assessment and plan: 60-year-old male with history of hypertension and cerebrovascular accident in the past brought in by EMS with a chief complaint of altered mental status. Per EMS the patient was behaving like his normal self approximately 45 minutes prior to arrival. The patient's sock folder found the patient unresponsive and slumped over in the bathroom on the toilet. Per EMS the patient was in A. fib with RVR. EMS states that they were unable to obtain a blood pressure. They attempted to cardiovert the patient x2 at 50 J unsuccessfully. The patient does not respond to verbal or tactile stimuli (1) Atrial fibrillation with rapid ventricular response Current Visit: Yes Status: Acute Plan to address problem: Patient was given Cardizem IV in the ER, off Cardizem drip Heart rate is going up and down went down and in the 40's and went up to in the 110s Cardiology consult appreciated, patient is on amiodarone gtt. and metoprolol. Cardiology said recommend to discontinue amiodarone gtt. Patient's heart rate is in the 80s but irregularly irregular Echocardiogram showed ejection fraction of 40 to 45%, diastolic dysfunction (2) Hypotension Current Visit: Yes Status: Acute Qualifiers: Hypotension type: unspecified hypotension type Qualified Code(s): I95.9 - Hypotension, unspecified Plan to address problem: Differential diagnosis of septic shock versus iatrogenic IV Rocephin Resolved, off IV fluid and Levophed (3) Sepsis Current Visit: Yes Status: Suspected Plan to address problem: Sepsis and differential diagnosis Patient is hypotensive. Currently stable Patient has UTI with white blood cells of 110 in the urine Continue with IV ceftriaxone Follow urine culture (4) History of hypertension Current Visit: Yes Status: Chronic Plan to address problem: We will hold antihypertensives for now (5) JESSIKA (acute kidney injury) Current Visit: Yes Status: Acute Plan to address problem: IV fluids for now Possible ATN Creatinine is trending up Nephrology said he will follow for 24 to 48 hours and if no improvement will consider to do hemodialysis Renal ultrasound did not show hydronephrosis (6) Hypokalemia Current Visit: Yes Status: Resolved Plan to address problem: Was low this morning and repleted and will check potassium Patient has transaminitis -LFTs are improving, acute hepatitis panel is negative, pending right upper quadrant ultrasound Elevated TSH but normal free T4; no acute management needed follow-up as an outpatient (7) DVT prophylaxis Current Visit: Yes Status: Acute Plan to address problem: Heparin subcu and GI prophylaxis Disposition; continue inpatient care History Interval history: Patient was seen and evaluated this morning Patient is complaining nausea but no vomiting Patient denied abdominal pain, denied drinking of alcohol Hospitalist Physical - Constitutional Vitals: Temp Pulse Resp BP Pulse Ox 98.0 F 46 L 18 99/63 96 07/23/20 07:52 07/23/20 07:52 07/23/20 07:52 07/23/20 07:52 07/23/20 07:52 General appearance: Present: no acute distress, well-nourished HEART Score - HEART Score Age: 45-65 Risk factors: 1-2 risk factors Troponin: Troponin T 0.024 ng/mL (0.00-0.029) 07/19/20 13:48 Troponin: 1-3x normal limit - Critical Actions Critical Actions: 4-6 pts:12-16.6% risk of adverse cardiac event. Should be admitted Results - Labs CBC & Chem 7: 07/20/20 03:40 07/23/20 05:29 Labs: Laboratory Last Values WBC 10.7 K/mm3 (4.5-11.0) 07/20/20 03:40 RBC 5.02 M/mm3 (3.65-5.03) 07/20/20 03:40 Hgb 15.0 gm/dl (11.8-15.2) 07/20/20 03:40 Hct 45.3 % (35.5-45.6) 07/20/20 03:40 MCV 90 fl (84-94) 07/20/20 03:40 MCH 30 pg (28-32) 07/20/20 03:40 MCHC 33 % (32-34) 07/20/20 03:40 RDW 15.9 % (13.2-15.2) H 07/20/20 03:40 Plt Count 167 K/mm3 (140-440) 07/20/20 03:40 Add Manual Diff Complete 07/20/20 03:40 Total Counted 100 07/20/20 03:40 Seg Neuts % (Manual) 92.0 % (40.0-70.0) H 07/20/20 03:40 Band Neutrophils % 0 % 07/20/20 03:40 Lymphocytes % (Manual) 3.0 % (13.4-35.0) L 07/20/20 03:40 Reactive Lymphs % (Man) 0 % 07/20/20 03:40 Monocytes % (Manual) 5.0 % (0.0-7.3) 07/20/20 03:40 Eosinophils % (Manual) 0 % (0.0-4.3) 07/20/20 03:40 Basophils % (Manual) 0 % (0.0-1.8) 07/20/20 03:40 Metamyelocytes % 0 % 07/20/20 03:40 Myelocytes % 0 % 07/20/20 03:40 Promyelocytes % 0 % 07/20/20 03:40 Blast Cells % 0 % 07/20/20 03:40 Nucleated RBC % Not Reportable 07/20/20 03:40 Seg Neutrophils # Man 9.8 K/mm3 (1.8-7.7) H 07/20/20 03:40 Band Neutrophils # 0.0 K/mm3 07/20/20 03:40 Lymphocytes # (Manual) 0.3 K/mm3 (1.2-5.4) L 07/20/20 03:40 Abs React Lymphs (Man) 0.0 K/mm3 07/20/20 03:40 Monocytes # (Manual) 0.5 K/mm3 (0.0-0.8) 07/20/20 03:40 Eosinophils # (Manual) 0.0 K/mm3 (0.0-0.4) 07/20/20 03:40 Basophils # (Manual) 0.0 K/mm3 (0.0-0.1) 07/20/20 03:40 Metamyelocytes # 0.0 K/mm3 07/20/20 03:40 Myelocytes # 0.0 K/mm3 07/20/20 03:40 Promyelocytes # 0.0 K/mm3 07/20/20 03:40 Blast Cells # 0.0 K/mm3 07/20/20 03:40 WBC Morphology Not Reportable 07/20/20 03:40 Hypersegmented Neuts Not Reportable 07/20/20 03:40 Hyposegmented Neuts Not Reportable 07/20/20 03:40 Hypogranular Neuts Not Reportable 07/20/20 03:40 Smudge Cells Not Reportable 07/20/20 03:40 Toxic Granulation Not Reportable 07/20/20 03:40 Toxic Vacuolation Not Reportable 07/20/20 03:40 Dohle Bodies Not Reportable 07/20/20 03:40 Pelger-Huet Anomaly Not Reportable 07/20/20 03:40 Lilliam Rods Not Reportable 07/20/20 03:40 Platelet Estimate Consistent w auto 07/20/20 03:40 Clumped Platelets Not Reportable 07/20/20 03:40 Plt Clumps, EDTA Not Reportable 07/20/20 03:40 Large Platelets Not Reportable 07/20/20 03:40 Giant Platelets Not Reportable 07/20/20 03:40 Platelet Satelliting Not Reportable 07/20/20 03:40 Plt Morphology Comment Not Reportable 07/20/20 03:40 RBC Morphology Not Reportable 07/20/20 03:40 Dimorphic RBCs Not Reportable 07/20/20 03:40 Polychromasia Not Reportable 07/20/20 03:40 Hypochromasia Not Reportable 07/20/20 03:40 Poikilocytosis Not Reportable 07/20/20 03:40 Anisocytosis 1+ 07/20/20 03:40 Microcytosis Not Reportable 07/20/20 03:40 Macrocytosis Not Reportable 07/20/20 03:40 Spherocytes Not Reportable 07/20/20 03:40 Pappenheimer Bodies Not Reportable 07/20/20 03:40 Sickle Cells Not Reportable 07/20/20 03:40 Target Cells Not Reportable 07/20/20 03:40 Tear Drop Cells Not Reportable 07/20/20 03:40 Ovalocytes Not Reportable 07/20/20 03:40 Helmet Cells Not Reportable 07/20/20 03:40 Cates-Stem Bodies Not Reportable 07/20/20 03:40 Pooler Rings Not Reportable 07/20/20 03:40 Morteza Cells Not Reportable 07/20/20 03:40 Bite Cells Not Reportable 07/20/20 03:40 Crenated Cell Not Reportable 07/20/20 03:40 Elliptocytes Not Reportable 07/20/20 03:40 Acanthocytes (Spur) Not Reportable 07/20/20 03:40 Rouleaux Not Reportable 07/20/20 03:40 Hemoglobin C Crystals Not Reportable 07/20/20 03:40 Schistocytes Not Reportable 07/20/20 03:40 Malaria parasites Not Reportable 07/20/20 03:40 Philipp Bodies Not Reportable 07/20/20 03:40 Hem Pathologist Commnt No 07/20/20 03:40 PT 18.5 Sec. (12.2-14.9) H 07/19/20 13:48 INR 1.51 (0.87-1.13) H 07/19/20 13:48 APTT 32.6 Sec. (24.2-36.6) 07/19/20 13:48 Sodium 144 mmol/L (137-145) 07/23/20 05:29 Potassium 3.3 mmol/L (3.6-5.0) L 07/23/20 05:29 Chloride 106.4 mmol/L (98-107) 07/23/20 05:29 Carbon Dioxide 21 mmol/L (22-30) L 07/23/20 05:29 Anion Gap 20 mmol/L 07/23/20 05:29 BUN 72 mg/dL (9-20) H 07/23/20 05:29 Creatinine 4.0 mg/dL (0.8-1.3) H 07/23/20 05:29 Estimated GFR 19 ml/min 07/23/20 05:29 BUN/Creatinine Ratio 18 % 07/23/20 05:29 Glucose 106 mg/dL (75-100) H 07/23/20 05:29 POC Glucose 139 (70-105) H 07/21/20 00:33 Hemoglobin A1c 5.7 % (4-6) 07/20/20 03:40 Calcium 9.0 mg/dL (8.4-10.2) 07/23/20 05:29 Phosphorus 4.00 mg/dL (2.5-4.5) 07/21/20 05:17 Magnesium 2.40 mg/dL (1.7-2.3) H 07/19/20 13:48 Total Bilirubin 0.50 mg/dL (0.1-1.2) 07/23/20 05:29 Direct Bilirubin < 0.2 mg/dL (0-0.2) 07/22/20 13:01 Indirect Bilirubin 0.1 mg/dL 07/22/20 13:01 AST 68 units/L (5-40) H 07/23/20 05:29 ALT 86 units/L (7-56) H 07/23/20 05:29 Alkaline Phosphatase 76 units/L (35-129) 07/23/20 05:29 Total Creatine Kinase 280 units/L (55-170) H 07/19/20 13:48 CK-MB (CK-2) 4.6 ng/mL (0.0-4.0) H 07/19/20 13:48 CK-MB (CK-2) Rel Index 1.6 (0-4) 07/19/20 13:48 Troponin T 0.024 ng/mL (0.00-0.029) 07/19/20 13:48 NT-Pro-B Natriuret Pep 1008 pg/mL (0-900) H 07/19/20 13:48 Total Protein 6.5 g/dL (6.3-8.2) 07/23/20 05:29 Albumin 2.9 g/dL (3.9-5) L 07/23/20 05:29 Albumin/Globulin Ratio 0.8 % 07/23/20 05:29 TSH 5.460 mlU/mL (0.270-4.200) H 07/19/20 13:48 Free T4 1.17 ng/dL (0.76-1.46) 07/19/20 13:48 Urine Color Mylene (Yellow) 07/19/20 Unknown Urine Turbidity Cloudy (Clear) 07/19/20 Unknown Urine pH 7.0 (5.0-7.0) 07/19/20 Unknown Ur Specific [place] 1.017 (1.003-1.030) 07/19/20 Unknown Urine Protein 100 mg/dl mg/dL (Negative) 07/19/20 Unknown Urine Glucose (UA) Neg mg/dL (Negative) 07/19/20 Unknown Urine Ketones Neg mg/dL (Negative) 07/19/20 Unknown Urine Blood Lg (Negative) 07/19/20 Unknown Urine Nitrite Neg (Negative) 07/19/20 Unknown Urine Bilirubin Neg (Negative) 07/19/20 Unknown Urine Urobilinogen < 2.0 mg/dL (<2.0) 07/19/20 Unknown Ur Leukocyte Esterase Lg (Negative) 07/19/20 Unknown Urine WBC (Auto) 110.0 /HPF (0.0-6.0) H 07/19/20 Unknown Urine RBC (Auto) 68.0 /HPF (0.0-6.0) 07/19/20 Unknown U Epithel Cells (Auto) 1.0 /HPF (0-13.0) 07/19/20 Unknown Urine Bacteria (Auto) 4+ /HPF (Negative) 07/19/20 Unknown Urine Mucus Few /HPF 07/19/20 Unknown Urine Eosinophils None seen (None Seen) 07/20/20 Unknown Urine Creatinine 110.3 mg/dL (0.1-20.0) H 07/20/20 Unknown Urine Creatinine 111.4 mg/dL (0.1-20.0) H 07/20/20 Unknown Protein/Creatinin Ratio 0.57 07/20/20 Unknown Urine Sodium 41 mmol/L 07/20/20 Unknown Urine Total Protein 63 mg/dL (5-11.8) H 07/20/20 Unknown Urine Total Protein 63 mg/dL (5-11.8) H 07/20/20 Unknown Plasma/Serum Alcohol < 0.01 % (0-0.07) 07/19/20 13:48 Hepatitis A IgM Ab Non-reactive (NonReactive) 07/22/20 13:01 Hep Bs Antigen Non-reactive (Negative) 07/22/20 13:01 Hep B Core IgM Ab Non-reactive (NonReactive) 07/22/20 13:01 Hepatitis C Antibody Non-reactive (NonReactive) 07/22/20 13:01 Microbiology: Microbiology 07/21/20 14:35 Peripheral/Venous Blood Culture - Preliminary NO GROWTH AFTER 24 HOURS 07/21/20 14:35 Peripheral/Venous Blood Culture - Preliminary NO GROWTH AFTER 24 HOURS - Diagnostic Impressions Diagnostic Impressions: Echocardiogram 07/20/20 09:12 Transthoracic Echocardiogram Indication: SOB BP: 101/77 Conclusions *The study is technically limited due to poor parasternal windows. *The study quality is technically difficult. Patient heart rate is iiregularly irregular,making interpretaion difficult. *The estimated ejection fraction is 45-50%. *Abnormal left ventricular diastolic filling is observed, consistent with impaired relaxation. *The right ventricular cavity size is normal. *The mitral valve leaflets are mildly thickened. *The right ventricular systolic pressure is calculated at 19 mmHg. Findings Procedure Info: The study quality is technically difficult. The study is technically limited due to poor parasternal windows. Left Ventricle: The estimated ejection fraction is 45-50%. Abnormal septal motion noted. Abnormal left ventricular diastolic filling is observed, consistent with impaired relaxation. Left Atrium: The left atrial chamber size is normal. Right Ventricle: The right ventricular cavity size is normal. Right Atrium: The right atrial cavity size is normal. Aortic Valve: The aortic valve leaflets are mildly thickened. There is trace of aortic regurgitation. Mitral Valve: The mitral valve leaflets are mildly thickened. Tricuspid Valve: The tricuspid valve leaflets are normal. There is trace tricuspid regurgitation. The right ventricular systolic pressure is calculated at 19 mmHg. Pericardium: There is no pericardial effusion. Measurements Volumes/Mass Name Value Normal Range LA ESV SP 4CH (A/L) 24.56 ml - LA ESV SP 2CH (A/L) 24.96 ml - LA ESV BP (A/L) 25.22 ml - LA ESV BP (A/L) index 13.27 ml/m2 - LA ESV SP 4CH (MOD) 22.25 ml - LA ESV SP 2CH (MOD) 24.68 ml - LA ESV BP (MOD) 23.72 ml - LA ESV BP (MOD) index 12.48 ml/m2 - Diastolic/Systolic Function Name Value Normal Range MV E-wave Vmax 0.36 m/sec - MV deceleration time 245.25 msec - MV A-wave Vmax 0.62 m/sec - MV E:A ratio 0.58 ratio - Aortic Valve Name Value Normal Range AV Vmax 1.35 m/sec - AV VTI 20.3 cm - AV peak gradient 7.33 mmHg - AV mean gradient 4.5 mmHg - LVOT Vmax 1.1 m/sec - LVOT VTI 15.68 cm - LVOT peak gradient 4.97 mmHg - LVOT mean gradient 2.72 mmHg - Tricuspid Valve Name Value Normal Range TR Vmax 2 m/sec - TR peak gradient 16 mmHg - RAP 3 mmHg - RVSP 19 mmHg - Tineo/IV: Voiding Method Urinal IV Catheter Type [Right CVL Femoral] IV Catheter Type [Right Hand] INT / Saline Lock IV Catheter Type [Right INT / Saline Lock Forearm] Active Medications - Current Medications Current Medications: Generic Name Dose Route Start Last Admin Trade Name Freq PRN Reason Stop Dose Admin Acetaminophen 650 mg 07/19/20 22:45 Tylenol PO Q4H PRN Pain MILD(1-3)/Fever >100.5/HAZEL Famotidine 20 mg 07/21/20 11:00 07/22/20 09:23 Pepcid PO 20 mg QAM EUNICE Administration Ceftriaxone Sodium 1 gm in 50 mls @ 100 mls/hr 07/20/20 09:00 07/22/20 21:05 Rocephin/Ns 1 Gm/50 Ml IV 07/26/20 10:29 Infused Q24HR EUNICE Infusion Protocol Sodium Chloride 1,000 mls @ 75 mls/hr 07/22/20 12:00 07/22/20 22:41 Nacl 0.45% 1000 Ml IV 75 mls/hr DIRECT EUNICE Administration Metoclopramide HCl 5 mg 07/19/20 22:45 07/22/20 18:03 Reglan IV 5 mg Q6H PRN Administration Nausea And Vomiting Metoprolol Tartrate 25 mg 07/22/20 18:00 07/23/20 07:24 Metoprolol PO Not Given Q6HR EUNICE Midodrine 5 mg 07/22/20 12:00 07/23/20 08:30 Proamatine PO 5 mg TID@0800,1200,1600 EUNICE Administration Morphine Sulfate 2 mg 07/19/20 22:45 07/20/20 11:45 Morphine IV 2 mg Q4H PRN Administration Pain, Moderate (4-6) Morphine Sulfate 4 mg 07/19/20 22:45 Morphine IV Q4H PRN Pain , Severe (7-10) Ondansetron HCl 4 mg 07/19/20 22:45 07/22/20 23:22 Zofran IV 4 mg Q8H PRN Administration Nausea And Vomiting Sodium Chloride 10 ml 07/20/20 10:00 07/22/20 22:41 Sodium Chloride Flush Syringe 10 Ml IV 10 ml BID EUNICE Administration Sodium Chloride 10 ml 07/19/20 22:45 07/22/20 01:04 Sodium Chloride Flush Syringe 10 Ml IV 10 ml PRN PRN Administration LINE FLUSH
[2020-07-23] MEDS: ONDANSETRON 4 MG/2 ML INJ IV PRN (09:35)
[2020-07-23] MEDS: cefTRIAXone/NS 1 GM/50 ML 1 GM/50 ML BAG IV SCH (09:35)
[2020-07-23] MEDS: FAMOTIDINE 20 MG TAB PO SCH (09:36)
--- NOTE | 2020-07-23 11:35 | Progress Note ---
Assessment and Plan telemetry reviewed - in AFib HR 90s - 110s overnight (although bradycardia is inaccurately charted on vital sign flowsheet). BPs remain borderline low. Optimize HR - initiate PO amio and cont PO lopressor as BPs permit. Agree with midodrine. Per discharge summary from [facility] in 10/2014, pt is known to have a history of paroxysmal atrial fibrillation. Pt does not appear to have been taking OAC at home for unknown reasons. Unless contraindicated, he would benefit from custodial systemic AC. Pt with persistent c/o n/v - for abd US today per primary team. The patient has been seen in conjunction with Dr. Stanley who agrees with the assessment and plan of care. - Patient Problems (1) Paroxysmal atrial fibrillation with rapid ventricular response Current Visit: Yes Status: Chronic (2) AMS (altered mental status) Current Visit: Yes Status: Acute (3) Sepsis Current Visit: Yes Status: Suspected (4) Hypotension Current Visit: Yes Status: Acute Qualifiers: Hypotension type: unspecified hypotension type Qualified Code(s): I95.9 - Hypotension, unspecified (5) UTI (urinary tract infection) Current Visit: Yes Status: Acute (6) Acute on chronic renal failure Current Visit: Yes Status: Acute (7) History of CVA (cerebrovascular accident) Current Visit: Yes Status: Chronic (8) History of DVT (deep vein thrombosis) Current Visit: Yes Status: Chronic (9) Presence of IVC filter Current Visit: Yes Status: Chronic (10) Cardiomyopathy Current Visit: Yes Status: Chronic (11) Hypokalemia Current Visit: Yes Status: Resolved Subjective Date of service: 07/23/20 Principal diagnosis: Atrial fibrillation with RVR, hypotension, UTI Interval history: pt resting in bed, c/o n/v. tele reviewed - in AFib HR 90s - 110s overnight. Objective Last Vital Signs Temp 98.0 F 07/23/20 07:52 Pulse 46 L 07/23/20 10:00 Resp 18 07/23/20 10:00 BP 99/63 07/23/20 07:52 Pulse Ox 95 07/23/20 10:00 - Physical Examination General: No Apparent Distress HEENT: Positive: PERRL, Normocephaly, Mucus Membranes Moist Neck: Positive: neck supple, trachea midline Cardiac: Positive: irregularly irregular, S1/S2 Lungs: Positive: Decreased Breath Sounds Neuro: Positive: Grossly Intact Abdomen: Negative: Tender Skin: Negative: Rash Musculoskeletal: No Pain Extremities: Absent: edema - Labs and Meds Cardiac Enzymes 07/22/20 07/23/20 Range/Units 13:01 05:29 AST 58 H 68 H (5-40) units/L Comprehensive Metabolic Panel 07/22/20 07/22/20 07/23/20 Range/Units 13:01 13:01 05:29 Sodium 144 (137-145) mmol/L Potassium 3.4 L 3.3 L (3.6-5.0) mmol/L Chloride 106.4 (98-107) mmol/L Carbon Dioxide 21 L (22-30) mmol/L BUN 72 H (9-20) mg/dL Creatinine 4.0 H (0.8-1.3) mg/dL Glucose 106 H (75-100) mg/dL Calcium 9.0 (8.4-10.2) mg/dL Direct Bilirubin < 0.2 (0-0.2) mg/dL Indirect Bilirubin 0.1 mg/dL AST 58 H 68 H (5-40) units/L ALT 70 H 86 H (7-56) units/L Alkaline Phosphatase 65 76 (35-129) units/L Total Protein 6.2 L 6.5 (6.3-8.2) g/dL Albumin 2.8 L 2.9 L (3.9-5) g/dL - Imaging and Cardiology EKG: report reviewed, image reviewed Echo: report reviewed (EF 45-50%, impaired relaxation. ) - Telemetry EKG Rhythm: Atrial Fibrillation
[2020-07-23] MEDS: AMIODARONE 200 MG TAB PO SCH ×2 (12:56→22:50)
--- NOTE | 2020-07-23 13:30 | Ultrasound Report ---
ULTRASOUND ABDOMEN, LIMITED (RIGHT UPPER QUADRANT) INDICATION: Nausea. COMPARISON: None available. FINDINGS: Pancreas: Not well seen due to overlying bowel gas Liver: Normal. Gallbladder: Some echogenic material in the gallbladder which appears to represent sludge. The patien t was unable to roll into left lateral decubitus position. The possibility small sand-like stones is considered. Bile ducts: Normal. Common Bile Duct measures 4 mm. Free fluid: None. Additional Findings: None. IMPRESSION: 1. There is sludge in the lumen of the gallbladder. There are possible sand-like stones. 2. Midline structures are obscured by overlying bowel gas. The imaged portion of the aorta is normal in diameter. The pancreas is not seen. Signer Name: Marcelo Reed MD Signed: 07/23/2020 1:26 PM Workstation Name: [id number]
[2020-07-23] MEDS: SODIUM CHLORIDE 0.45% 1000 ML 1,000 ML IV SCH (22:51)
[2020-07-24 07:22] LABS: Calcium 8.8 mg/dL (8.4-10.2)
[2020-07-24] MEDS ORDERED: POTASSIUM CHLORIDE ER 20 MEQ TAB PO ONE (07:49)
--- NOTE | 2020-07-24 07:56 | Progress Note ---
Assessment and Plan Assessment and plan: 60-year-old male with history of hypertension and cerebrovascular accident in the past brought in by EMS with a chief complaint of altered mental status. Per EMS the patient was behaving like his normal self approximately 45 minutes prior to arrival. The patient's clerical support specialist found the patient unresponsive and slumped over in the bathroom on the toilet. Per EMS the patient was in A. fib with RVR. EMS states that they were unable to obtain a blood pressure. They attempted to cardiovert the patient x2 at 50 J unsuccessfully. The patient does not respond to verbal or tactile stimuli (1) Atrial fibrillation with rapid ventricular response Current Visit: Yes Status: Acute Plan to address problem: Patient was given Cardizem IV in the ER, off Cardizem drip Heart rate is going up and down went down and in the 40's and went up to in the 110s Cardiology consult appreciated, patient was on amiodarone gtt. and metoprolol. Currently on p.o. amiodarone Patient's heart rate is in the 80s but irregularly irregular Echocardiogram showed ejection fraction of 40 to 45%, diastolic dysfunction (2) Hypotension Current Visit: Yes Status: Acute Qualifiers: Hypotension type: unspecified hypotension type Qualified Code(s): I95.9 - Hypotension, unspecified Plan to address problem: Differential diagnosis of septic shock versus iatrogenic IV Rocephin Resolved, off IV fluid and Levophed (3) Sepsis Current Visit: Yes Status: Suspected Plan to address problem: Sepsis and differential diagnosis Patient is hypotensive. Currently stable Patient has UTI with white blood cells of 110 in the urine Continue with IV ceftriaxone Follow urine culture, still pending (4) History of hypertension Current Visit: Yes Status: Chronic Plan to address problem: We will hold antihypertensives for now (5) JESSIKA (acute kidney injury) Current Visit: Yes Status: Acute Plan to address problem: IV fluids for now Possible ATN Creatinine trended down from 4-2.8 this morning Nephrology is following the patient Renal ultrasound did not show hydronephrosis (6) Hypokalemia Current Visit: Yes Status: Resolved Plan to address problem: Was low this morning and repleted and will check potassium Patient has transaminitis -LFTs are improving, acute hepatitis panel is negative, right upper quadrant showed sludge in the gallbladder. Sand-like stones to be present Patient is complaining of less anxiety, nausea and vomiting -CT abdomen pelvis is pending Elevated TSH but normal free T4; no acute management needed follow-up as an outpatient (7) DVT prophylaxis Current Visit: Yes Status: Acute Plan to address problem: Heparin subcu and GI prophylaxis Patient was evaluated by PT OT; and recommend skilled PT Disposition; continue inpatient care. Follow-up CT of abdomen and pelvis, patient need reevaluation by PT once he is getting better. History Interval history: Patient was seen and evaluated this morning Patient is complaining early satiety and nausea No vomiting from this morning CT abdomen pelvis is pending Hospitalist Physical - Physical exam Narrative exam: Not in cardiopulmonary distress. The patient appeared well nourished and normally developed. Vital signs as documented. Head exam is unremarkable. No scleral icterus . Neck is without jugular venous distension, thyromegaly, or carotid bruits. Lungs are clear to auscultation. Cardiac exam reveals regular rate and Rhythm. Abdominal exam reveals normal bowel sounds, nontender, no organomegaly. Extremities are nonedematous and both femoral and pedal pulses are normal. CNA PER DIEM: Alert and oriented 3. No focal weakness. - Constitutional Vitals: Temp Pulse Resp BP Pulse Ox 98.0 F 51 L 18 124/71 100 07/24/20 04:24 07/24/20 04:24 07/24/20 04:24 07/24/20 04:24 07/24/20 04:24 General appearance: Present: no acute distress, well-nourished HEART Score - HEART Score Age: 45-65 Risk factors: 1-2 risk factors Troponin: Troponin T 0.024 ng/mL (0.00-0.029) 07/19/20 13:48 Troponin: 1-3x normal limit - Critical Actions Critical Actions: 4-6 pts:12-16.6% risk of adverse cardiac event. Should be admitted Results - Labs CBC & Chem 7: 07/20/20 03:40 07/24/20 04:30 Labs: Laboratory Last Values WBC 10.7 K/mm3 (4.5-11.0) 07/20/20 03:40 RBC 5.02 M/mm3 (3.65-5.03) 07/20/20 03:40 Hgb 15.0 gm/dl (11.8-15.2) 07/20/20 03:40 Hct 45.3 % (35.5-45.6) 07/20/20 03:40 MCV 90 fl (84-94) 07/20/20 03:40 MCH 30 pg (28-32) 07/20/20 03:40 MCHC 33 % (32-34) 07/20/20 03:40 RDW 15.9 % (13.2-15.2) H 07/20/20 03:40 Plt Count 167 K/mm3 (140-440) 07/20/20 03:40 Add Manual Diff Complete 07/20/20 03:40 Total Counted 100 07/20/20 03:40 Seg Neuts % (Manual) 92.0 % (40.0-70.0) H 07/20/20 03:40 Band Neutrophils % 0 % 07/20/20 03:40 Lymphocytes % (Manual) 3.0 % (13.4-35.0) L 07/20/20 03:40 Reactive Lymphs % (Man) 0 % 07/20/20 03:40 Monocytes % (Manual) 5.0 % (0.0-7.3) 07/20/20 03:40 Eosinophils % (Manual) 0 % (0.0-4.3) 07/20/20 03:40 Basophils % (Manual) 0 % (0.0-1.8) 07/20/20 03:40 Metamyelocytes % 0 % 07/20/20 03:40 Myelocytes % 0 % 07/20/20 03:40 Promyelocytes % 0 % 07/20/20 03:40 Blast Cells % 0 % 07/20/20 03:40 Nucleated RBC % Not Reportable 07/20/20 03:40 Seg Neutrophils # Man 9.8 K/mm3 (1.8-7.7) H 07/20/20 03:40 Band Neutrophils # 0.0 K/mm3 07/20/20 03:40 Lymphocytes # (Manual) 0.3 K/mm3 (1.2-5.4) L 07/20/20 03:40 Abs React Lymphs (Man) 0.0 K/mm3 07/20/20 03:40 Monocytes # (Manual) 0.5 K/mm3 (0.0-0.8) 07/20/20 03:40 Eosinophils # (Manual) 0.0 K/mm3 (0.0-0.4) 07/20/20 03:40 Basophils # (Manual) 0.0 K/mm3 (0.0-0.1) 07/20/20 03:40 Metamyelocytes # 0.0 K/mm3 07/20/20 03:40 Myelocytes # 0.0 K/mm3 07/20/20 03:40 Promyelocytes # 0.0 K/mm3 07/20/20 03:40 Blast Cells # 0.0 K/mm3 07/20/20 03:40 WBC Morphology Not Reportable 07/20/20 03:40 Hypersegmented Neuts Not Reportable 07/20/20 03:40 Hyposegmented Neuts Not Reportable 07/20/20 03:40 Hypogranular Neuts Not Reportable 07/20/20 03:40 Smudge Cells Not Reportable 07/20/20 03:40 Toxic Granulation Not Reportable 07/20/20 03:40 Toxic Vacuolation Not Reportable 07/20/20 03:40 Dohle Bodies Not Reportable 07/20/20 03:40 Pelger-Huet Anomaly Not Reportable 07/20/20 03:40 Lilliam Rods Not Reportable 07/20/20 03:40 Platelet Estimate Consistent w auto 07/20/20 03:40 Clumped Platelets Not Reportable 07/20/20 03:40 Plt Clumps, EDTA Not Reportable 07/20/20 03:40 Large Platelets Not Reportable 07/20/20 03:40 Giant Platelets Not Reportable 07/20/20 03:40 Platelet Satelliting Not Reportable 07/20/20 03:40 Plt Morphology Comment Not Reportable 07/20/20 03:40 RBC Morphology Not Reportable 07/20/20 03:40 Dimorphic RBCs Not Reportable 07/20/20 03:40 Polychromasia Not Reportable 07/20/20 03:40 Hypochromasia Not Reportable 07/20/20 03:40 Poikilocytosis Not Reportable 07/20/20 03:40 Anisocytosis 1+ 07/20/20 03:40 Microcytosis Not Reportable 07/20/20 03:40 Macrocytosis Not Reportable 07/20/20 03:40 Spherocytes Not Reportable 07/20/20 03:40 Pappenheimer Bodies Not Reportable 07/20/20 03:40 Sickle Cells Not Reportable 07/20/20 03:40 Target Cells Not Reportable 07/20/20 03:40 Tear Drop Cells Not Reportable 07/20/20 03:40 Ovalocytes Not Reportable 07/20/20 03:40 Helmet Cells Not Reportable 07/20/20 03:40 [place] Bodies Not Reportable 07/20/20 03:40 [place] Rings Not Reportable 07/20/20 03:40 Morteza Cells Not Reportable 07/20/20 03:40 Bite Cells Not Reportable 07/20/20 03:40 Crenated Cell Not Reportable 07/20/20 03:40 Elliptocytes Not Reportable 07/20/20 03:40 Acanthocytes (Spur) Not Reportable 07/20/20 03:40 Rouleaux Not Reportable 07/20/20 03:40 Hemoglobin C Crystals Not Reportable 07/20/20 03:40 Schistocytes Not Reportable 07/20/20 03:40 Malaria parasites Not Reportable 07/20/20 03:40 Philipp Bodies Not Reportable 07/20/20 03:40 Hem Pathologist Commnt No 07/20/20 03:40 PT 18.5 Sec. (12.2-14.9) H 07/19/20 13:48 INR 1.51 (0.87-1.13) H 07/19/20 13:48 APTT 32.6 Sec. (24.2-36.6) 07/19/20 13:48 Sodium 143 mmol/L (137-145) 07/24/20 04:30 Potassium 3.4 mmol/L (3.6-5.0) L 07/24/20 04:30 Chloride 106.6 mmol/L (98-107) 07/24/20 04:30 Carbon Dioxide 22 mmol/L (22-30) 07/24/20 04:30 Anion Gap 18 mmol/L 07/24/20 04:30 BUN 60 mg/dL (9-20) H 07/24/20 04:30 Creatinine 2.8 mg/dL (0.8-1.3) H 07/24/20 04:30 Estimated GFR 28 ml/min 07/24/20 04:30 BUN/Creatinine Ratio 21 % 07/24/20 04:30 Glucose 93 mg/dL (75-100) 07/24/20 04:30 POC Glucose 96 (70-105) 07/23/20 22:03 Hemoglobin A1c 5.7 % (4-6) 07/20/20 03:40 Calcium 8.8 mg/dL (8.4-10.2) 07/24/20 04:30 Phosphorus 4.00 mg/dL (2.5-4.5) 07/21/20 05:17 Magnesium 2.40 mg/dL (1.7-2.3) H 07/19/20 13:48 Total Bilirubin 0.60 mg/dL (0.1-1.2) 07/24/20 04:30 Direct Bilirubin < 0.2 mg/dL (0-0.2) 07/22/20 13:01 Indirect Bilirubin 0.1 mg/dL 07/22/20 13:01 AST 50 units/L (5-40) H 07/24/20 04:30 ALT 79 units/L (7-56) H 07/24/20 04:30 Alkaline Phosphatase 83 units/L (35-129) 07/24/20 04:30 Total Creatine Kinase 280 units/L (55-170) H 07/19/20 13:48 CK-MB (CK-2) 4.6 ng/mL (0.0-4.0) H 07/19/20 13:48 CK-MB (CK-2) Rel Index 1.6 (0-4) 07/19/20 13:48 Troponin T 0.024 ng/mL (0.00-0.029) 07/19/20 13:48 NT-Pro-B Natriuret Pep 1008 pg/mL (0-900) H 07/19/20 13:48 Total Protein 6.6 g/dL (6.3-8.2) 07/24/20 04:30 Albumin 3.0 g/dL (3.9-5) L 07/24/20 04:30 Albumin/Globulin Ratio 0.8 % 07/24/20 04:30 Lipase 23 units/L (13-60) 07/23/20 05:29 TSH 5.460 mlU/mL (0.270-4.200) H 07/19/20 13:48 Free T4 1.17 ng/dL (0.76-1.46) 07/19/20 13:48 Urine Color Mylene (Yellow) 07/19/20 Unknown Urine Turbidity Cloudy (Clear) 07/19/20 Unknown Urine pH 7.0 (5.0-7.0) 07/19/20 Unknown Ur Specific [place] 1.017 (1.003-1.030) 07/19/20 Unknown Urine Protein 100 mg/dl mg/dL (Negative) 07/19/20 Unknown Urine Glucose (UA) Neg mg/dL (Negative) 07/19/20 Unknown Urine Ketones Neg mg/dL (Negative) 07/19/20 Unknown Urine Blood Lg (Negative) 07/19/20 Unknown Urine Nitrite Neg (Negative) 07/19/20 Unknown Urine Bilirubin Neg (Negative) 07/19/20 Unknown Urine Urobilinogen < 2.0 mg/dL (<2.0) 07/19/20 Unknown Ur Leukocyte Esterase Lg (Negative) 07/19/20 Unknown Urine WBC (Auto) 110.0 /HPF (0.0-6.0) H 07/19/20 Unknown Urine RBC (Auto) 68.0 /HPF (0.0-6.0) 07/19/20 Unknown U Epithel Cells (Auto) 1.0 /HPF (0-13.0) 07/19/20 Unknown Urine Bacteria (Auto) 4+ /HPF (Negative) 07/19/20 Unknown Urine Mucus Few /HPF 07/19/20 Unknown Urine Eosinophils None seen (None Seen) 07/20/20 Unknown Urine Creatinine 110.3 mg/dL (0.1-20.0) H 07/20/20 Unknown Urine Creatinine 111.4 mg/dL (0.1-20.0) H 07/20/20 Unknown Protein/Creatinin Ratio 0.57 07/20/20 Unknown Urine Sodium 41 mmol/L 07/20/20 Unknown Urine Total Protein 63 mg/dL (5-11.8) H 07/20/20 Unknown Urine Total Protein 63 mg/dL (5-11.8) H 07/20/20 Unknown Plasma/Serum Alcohol < 0.01 % (0-0.07) 07/19/20 13:48 C. difficile Tox (PCR) Negative (Negative) 07/22/20 16:36 Hepatitis A IgM Ab Non-reactive (NonReactive) 07/22/20 13:01 Hep Bs Antigen Non-reactive (Negative) 07/22/20 13:01 Hep B Core IgM Ab Non-reactive (NonReactive) 07/22/20 13:01 Hepatitis C Antibody Non-reactive (NonReactive) 07/22/20 13:01 Microbiology: Microbiology 07/21/20 14:35 Peripheral/Venous Blood Culture - Preliminary NO GROWTH AFTER 48 HOURS 07/21/20 14:35 Peripheral/Venous Blood Culture - Preliminary NO GROWTH AFTER 48 HOURS - Diagnostic Impressions Diagnostic Impressions: Echocardiogram 07/20/20 09:12 Transthoracic Echocardiogram Indication: SOB BP: 101/77 Conclusions *The study is technically limited due to poor parasternal windows. *The study quality is technically difficult. Patient heart rate is iiregularly irregular,making interpretaion difficult. *The estimated ejection fraction is 45-50%. *Abnormal left ventricular diastolic filling is observed, consistent with impaired relaxation. *The right ventricular cavity size is normal. *The mitral valve leaflets are mildly thickened. *The right ventricular systolic pressure is calculated at 19 mmHg. Findings Procedure Info: The study quality is technically difficult. The study is technically limited due to poor parasternal windows. Left Ventricle: The estimated ejection fraction is 45-50%. Abnormal septal motion noted. Abnormal left ventricular diastolic filling is observed, consistent with impaired relaxation. Left Atrium: The left atrial chamber size is normal. Right Ventricle: The right ventricular cavity size is normal. Right Atrium: The right atrial cavity size is normal. Aortic Valve: The aortic valve leaflets are mildly thickened. There is trace of aortic regurgitation. Mitral Valve: The mitral valve leaflets are mildly thickened. Tricuspid Valve: The tricuspid valve leaflets are normal. There is trace tricuspid regurgitation. The right ventricular systolic pressure is calculated at 19 mmHg. Pericardium: There is no pericardial effusion. Measurements Volumes/Mass Name Value Normal Range LA ESV SP 4CH (A/L) 24.56 ml - LA ESV SP 2CH (A/L) 24.96 ml - LA ESV BP (A/L) 25.22 ml - LA ESV BP (A/L) index 13.27 ml/m2 - LA ESV SP 4CH (MOD) 22.25 ml - LA ESV SP 2CH (MOD) 24.68 ml - LA ESV BP (MOD) 23.72 ml - LA ESV BP (MOD) index 12.48 ml/m2 - Diastolic/Systolic Function Name Value Normal Range MV E-wave Vmax 0.36 m/sec - MV deceleration time 245.25 msec - MV A-wave Vmax 0.62 m/sec - MV E:A ratio 0.58 ratio - Aortic Valve Name Value Normal Range AV Vmax 1.35 m/sec - AV VTI 20.3 cm - AV peak gradient 7.33 mmHg - AV mean gradient 4.5 mmHg - LVOT Vmax 1.1 m/sec - LVOT VTI 15.68 cm - LVOT peak gradient 4.97 mmHg - LVOT mean gradient 2.72 mmHg - Tricuspid Valve Name Value Normal Range TR Vmax 2 m/sec - TR peak gradient 16 mmHg - RAP 3 mmHg - RVSP 19 mmHg - Tineo/IV: Voiding Method Urinal IV Catheter Type [Right CVL Femoral] IV Catheter Type [Right Hand] INT / Saline Lock IV Catheter Type [Right INT / Saline Lock Forearm] Active Medications - Current Medications Current Medications: Generic Name Dose Route Start Last Admin Trade Name Freq PRN Reason Stop Dose Admin Acetaminophen 650 mg 07/19/20 22:45 Tylenol PO Q4H PRN Pain MILD(1-3)/Fever >100.5/HAZEL Amiodarone HCl 200 mg 07/23/20 12:00 07/23/20 22:50 Cordarone PO 200 mg BID EUNICE Administration Famotidine 20 mg 07/21/20 11:00 07/23/20 09:36 Pepcid PO 20 mg QAM EUNICE Administration Ceftriaxone Sodium 1 gm in 50 mls @ 100 mls/hr 07/20/20 09:00 07/23/20 09:35 Rocephin/Ns 1 Gm/50 Ml IV 07/26/20 10:29 100 mls/hr Q24HR EUNICE Administration Protocol Sodium Chloride 1,000 mls @ 75 mls/hr 07/22/20 12:00 07/23/20 22:51 Nacl 0.45% 1000 Ml IV 75 mls/hr DIRECT EUNICE Administration Metoclopramide HCl 5 mg 07/19/20 22:45 07/22/20 18:03 Reglan IV 5 mg Q6H PRN Administration Nausea And Vomiting Metoprolol Tartrate 25 mg 07/23/20 22:00 07/23/20 22:50 Metoprolol PO 25 mg BID EUNICE Administration Midodrine 5 mg 07/22/20 12:00 07/23/20 17:55 Proamatine PO 5 mg TID@0800,1200,1600 EUNICE Administration Morphine Sulfate 2 mg 07/19/20 22:45 07/20/20 11:45 Morphine IV 2 mg Q4H PRN Administration Pain, Moderate (4-6) Morphine Sulfate 4 mg 07/19/20 22:45 Morphine IV Q4H PRN Pain , Severe (7-10) Ondansetron HCl 4 mg 07/19/20 22:45 07/23/20 09:35 Zofran IV 4 mg Q8H PRN Administration Nausea And Vomiting Potassium Chloride 40 meq 07/24/20 07:49 K-Dur PO 07/24/20 07:50 ONCE ONE Sodium Chloride 10 ml 07/20/20 10:00 07/23/20 22:51 Sodium Chloride Flush Syringe 10 Ml IV 10 ml BID EUNICE Administration Sodium Chloride 10 ml 07/19/20 22:45 07/22/20 01:04 Sodium Chloride Flush Syringe 10 Ml IV 10 ml PRN PRN Administration LINE FLUSH
[2020-07-24] MEDS: MIDODRINE 5 MG TAB PO SCH ×3 (08:16→18:00)
[2020-07-24] MEDS: METOPROLOL TARTRATE 25 MG TAB PO SCH ×2 (09:02→21:59)
[2020-07-24] MEDS: cefTRIAXone/NS 1 GM/50 ML 1 GM/50 ML BAG IV SCH (09:02)
[2020-07-24] MEDS: FAMOTIDINE 20 MG TAB PO SCH (09:02)
[2020-07-24] MEDS: AMIODARONE 200 MG TAB PO SCH ×2 (09:02→21:59)
--- NOTE | 2020-07-24 09:51 | Progress Note ---
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 Simple bilateral renal cysts. No obstruction. -CXR: no acute findings -Hypotension-S/P Levophed drip. On Midorine 5 mg po TID -Echocardiogram-EF 45-50% per Cardiology -No urine eosinophils seen -Obtain daily weights -Avoid Nephrotoxic agents -Continue to monitor renal function closely González Vazquez MD [phone] Subjective Date of service: 07/24/20 Principal diagnosis: Atrial fibrillation with RVR, hypotension, UTI Interval history: denies acute issues, comfortable. Objective - Vital Signs Vital signs: Vital Signs - 12hr 07/23/20 07/23/20 07/24/20 23:38 23:49 04:00 Temperature 98.0 F Pulse Rate 34 L 86 51 L Respiratory 20 Rate Blood Pressure 87/70 O2 Sat by Pulse 100 Oximetry 07/24/20 07/24/20 07/24/20 04:24 08:16 08:31 Temperature 98.0 F 98.0 F 98.0 F Pulse Rate 51 L Respiratory 18 20 20 Rate Blood Pressure 124/71 128/83 183/83 O2 Sat by Pulse 100 Oximetry - General Appearance General appearance: well-developed, well-nourished, appears stated age EENT: ATNC, PERRL, mucous membranes moist Neck: no JVD, no carotid bruit Respiratory: Present: Clear to Ascultation. Absent: Rales, Ronchi Cardiology: regular, S1S2 Gastrointestinal: normoactive bowel sounds Integumentary: no rash, warm and dry Neurologic: no focal deficit, no asterixis, alert and oriented x3 Musculoskeletal: other (no edema in BLE) Psychiatric: mood/affect appropriate, cooperative - Lab 07/20/20 03:40 07/24/20 04:30 Most recent lab results Calcium 8.8 mg/dL (8.4-10.2) 07/24/20 04:30 Phosphorus 4.00 mg/dL (2.5-4.5) 07/21/20 05:17 Magnesium 2.40 mg/dL (1.7-2.3) H 07/19/20 13:48 Urine Creatinine 110.3 mg/dL (0.1-20.0) H 07/20/20 Unknown Urine Creatinine 111.4 mg/dL (0.1-20.0) H 07/20/20 Unknown Urine Sodium 41 mmol/L 07/20/20 Unknown Urine Total Protein 63 mg/dL (5-11.8) H 07/20/20 Unknown Urine Total Protein 63 mg/dL (5-11.8) H 07/20/20 Unknown Medications & Allergies - Medications Allergies/Adverse Reactions: Allergies No Known Allergies Allergy (Unverified 07/19/20 14:28) Home Medications: Home Medications Medication Instructions Recorded Confirmed Last Taken Type amLODIPine [Norvasc] 5 mg PO DAILY 07/20/20 07/20/20 Unknown History lisinopriL [Zestril TAB] 40 mg PO QDAY 07/20/20 07/20/20 Unknown History Active Medications: Generic Name Dose Route Start Last Admin Trade Name Freq PRN Reason Stop Dose Admin Acetaminophen 650 mg 07/19/20 22:45 Tylenol PO Q4H PRN Pain MILD(1-3)/Fever >100.5/HAZEL Amiodarone HCl 200 mg 07/23/20 12:00 07/24/20 09:02 Cordarone PO 200 mg BID EUNICE Administration Famotidine 20 mg 07/21/20 11:00 07/24/20 09:02 Pepcid PO 20 mg QAM EUNICE Administration Ceftriaxone Sodium 1 gm in 50 mls @ 100 mls/hr 07/20/20 09:00 07/24/20 09:02 Rocephin/Ns 1 Gm/50 Ml IV 07/26/20 10:29 100 mls/hr Q24HR EUNICE Administration Protocol Sodium Chloride 1,000 mls @ 75 mls/hr 07/22/20 12:00 07/23/20 22:51 Nacl 0.45% 1000 Ml IV 75 mls/hr DIRECT EUNICE Administration Metoclopramide HCl 5 mg 07/19/20 22:45 07/22/20 18:03 Reglan IV 5 mg Q6H PRN Administration Nausea And Vomiting Metoprolol Tartrate 25 mg 07/23/20 22:00 07/24/20 09:02 Metoprolol PO 25 mg BID EUNICE Administration Midodrine 5 mg 07/22/20 12:00 07/24/20 08:16 Proamatine PO 5 mg TID@0800,1200,1600 EUNICE Administration Morphine Sulfate 2 mg 07/19/20 22:45 07/20/20 11:45 Morphine IV 2 mg Q4H PRN Administration Pain, Moderate (4-6) Morphine Sulfate 4 mg 07/19/20 22:45 Morphine IV Q4H PRN Pain , Severe (7-10) Ondansetron HCl 4 mg 07/19/20 22:45 07/23/20 09:35 Zofran IV 4 mg Q8H PRN Administration Nausea And Vomiting Sodium Chloride 10 ml 07/20/20 10:00 07/24/20 09:02 Sodium Chloride Flush Syringe 10 Ml IV 10 ml BID EUNICE Administration Sodium Chloride 10 ml 07/19/20 22:45 07/22/20 01:04 Sodium Chloride Flush Syringe 10 Ml IV 10 ml PRN PRN Administration LINE FLUSH
--- NOTE | 2020-07-24 10:22 | Progress Note ---
Assessment and Plan telemetry reviewed - in AFib HR 90s - 100s overnight (although bradycardia is inaccurately charted on vital sign flowsheet). Cont PO amio and PO lopressor as BPs permit. Agree with midodrine. Per discharge summary from [facility] in 10/2014, pt is known to have a history of paroxysmal atrial fibrillation. Pt does not appear to have been taking OAC at home for unknown reasons. 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 Recommend Eliquis 5mg BID. Pt with persistent c/o n/v - abd US showed sludge in gallbladder and possible stones, abdomen/pelvis CT pending. Further eval/management per primary. Currently stable cardiac status. Will follow on as needed basis over the weekend. The patient has been seen in conjunction with Dr. Stanley who agrees with the assessment and plan of care. - Patient Problems (1) Paroxysmal atrial fibrillation with rapid ventricular response Current Visit: Yes Status: Chronic (2) AMS (altered mental status) Current Visit: Yes Status: Acute (3) Sepsis Current Visit: Yes Status: Suspected (4) Hypotension Current Visit: Yes Status: Acute Qualifiers: Hypotension type: unspecified hypotension type Qualified Code(s): I95.9 - Hypotension, unspecified (5) UTI (urinary tract infection) Current Visit: Yes Status: Acute (6) Acute on chronic renal failure Current Visit: Yes Status: Acute (7) History of CVA (cerebrovascular accident) Current Visit: Yes Status: Chronic (8) History of DVT (deep vein thrombosis) Current Visit: Yes Status: Chronic (9) Presence of IVC filter Current Visit: Yes Status: Chronic (10) Cardiomyopathy Current Visit: Yes Status: Chronic (11) Hypokalemia Current Visit: Yes Status: Resolved (12) Nausea and vomiting Current Visit: Yes Status: Acute Subjective Date of service: 07/24/20 Principal diagnosis: Atrial fibrillation with RVR, hypotension, UTI Interval history: pt resting in bed, c/o n/v. tele reviewed - in AFib HR 90s - 100s overnight. Objective Last Vital Signs Temp 98.0 F 07/24/20 08:31 Pulse 51 L 07/24/20 04:24 Resp 20 07/24/20 08:31 BP 183/83 07/24/20 08:31 Pulse Ox 100 07/24/20 04:24 - Physical Examination General: No Apparent Distress HEENT: Positive: PERRL, Normocephaly, Mucus Membranes Moist Neck: Positive: neck supple, trachea midline Cardiac: Positive: irregularly irregular, S1/S2 Lungs: Positive: Decreased Breath Sounds Neuro: Positive: Grossly Intact Abdomen: Negative: Tender Skin: Negative: Rash Musculoskeletal: No Pain Extremities: Absent: edema - Labs and Meds Cardiac Enzymes 07/24/20 Range/Units 04:30 AST 50 H (5-40) units/L Comprehensive Metabolic Panel 07/24/20 Range/Units 04:30 Sodium 143 (137-145) mmol/L Potassium 3.4 L (3.6-5.0) mmol/L Chloride 106.6 (98-107) mmol/L Carbon Dioxide 22 (22-30) mmol/L BUN 60 H (9-20) mg/dL Creatinine 2.8 H (0.8-1.3) mg/dL Glucose 93 (75-100) mg/dL Calcium 8.8 (8.4-10.2) mg/dL AST 50 H (5-40) units/L ALT 79 H (7-56) units/L Alkaline Phosphatase 83 (35-129) units/L Total Protein 6.6 (6.3-8.2) g/dL Albumin 3.0 L (3.9-5) g/dL - Imaging and Cardiology EKG: report reviewed, image reviewed Echo: report reviewed (EF 45-50%, impaired relaxation. )
--- NOTE | 2020-07-24 10:36 | Cat Scan Report ---
CT ABDOMEN AND PELVIS WITHOUT CONTRAST HISTORY: early satiety COMPARISON: Right upper quadrant ultrasound 07/22/2020 TECHNIQUE: Axial CT images were obtained through the abdomen and pelvis without IV contrast. Sagittal and coronal reformatted images. All CT scans at this location are performed using CT dose reduction for ALARA by means of automated exposure control. FINDINGS: CT ABDOMEN: Lung Bases: Clear. Liver: No significant abnormality. Biliary: Minimal cholelithiasis is identified. No biliary dilatation. Spleen: No significant abnormality. Unenlarged. Pancreas: No significant abnormality. Adrenals: No significant abnormality. Kidneys: There are 3 cysts in the right kidney with the largest measuring 5.3 cm. There are 2 or 3 galdamez bcentimeter cysts in the left kidney. There are 2 calyceal stones in the inferior right kidney measur ing 6 mm and 10 mm. Punctate right renal stone near mid pole. No left nephrolithiasis. No hydronephro sis. Lymphatics: No lymphadenopathy. Vasculature: The aorta is mildly ectatic but without aneurysm. An IVC filter is in place below the re nal veins. Bowel/Peritoneum: No evidence for bowel obstruction or focal inflammation. Mild diverticulosis of the colon is noted. Normal appendix. No free fluid or free air. CT PELVIS: : No significant abnormality. Osseous Structures: No significant abnormality. Additional Findings: None IMPRESSION: No acute process is appreciated in the abdomen or pelvis. Cholelithiasis. Bilateral renal cysts. Right nephrolithiasis. No hydronephrosis. Mild diverticulosis of the colon. Signer Name: Rob Sweeney Jr, MD Signed: 07/24/2020 10:31 AM Workstation Name: [id number]
[2020-07-24] MEDS: ONDANSETRON 4 MG/2 ML INJ IV PRN (11:41)
[2020-07-24] MEDS: SODIUM CHLORIDE 0.45% 1000 ML 1,000 ML IV SCH (17:59)
[2020-07-25 06:22] LABS: Albumin 3.1 g/dL (3.9-5); Calcium 8.8 mg/dL (8.4-10.2)
--- NOTE | 2020-07-25 08:05 | Progress Note ---
Assessment and Plan Assessment and plan: 60-year-old male with history of hypertension and cerebrovascular accident in the past brought in by EMS with a chief complaint of altered mental status. Per EMS the patient was behaving like his normal self approximately 45 minutes prior to arrival. 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 Per EMS the patient was in A. fib with RVR. EMS states that they were unable to obtain a blood pressure. They attempted to cardiovert the patient x2 at 50 J unsuccessfully. The patient does not respond to verbal or tactile stimuli (1) Atrial fibrillation with rapid ventricular response Current Visit: Yes Status: Acute Plan to address problem: Patient was given Cardizem IV in the ER, off Cardizem drip Heart rate is going up and down went down and in the 40's and went up to in the 110s Cardiology consult appreciated, patient was on amiodarone gtt. and metoprolol. Currently on p.o. amiodarone Patient's heart rate is in the 80s but irregularly irregular Echocardiogram showed ejection fraction of 40 to 45%, diastolic dysfunction (2) Hypotension Current Visit: Yes Status: Acute Qualifiers: Hypotension type: unspecified hypotension type Qualified Code(s): I95.9 - Hypotension, unspecified Plan to address problem: Differential diagnosis of septic shock versus iatrogenic IV Rocephin Resolved, off IV fluid and Levophed (3) Sepsis Current Visit: Yes Status: Suspected Plan to address problem: Sepsis and differential diagnosis Patient is hypotensive. Currently stable Patient has UTI with white blood cells of 110 in the urine Continue with IV ceftriaxone Follow urine culture, still pending (4) History of hypertension Current Visit: Yes Status: Chronic Plan to address problem: We will hold antihypertensives for now (5) JESSIKA (acute kidney injury) Current Visit: Yes Status: Acute Plan to address problem: IV fluids for now Possible ATN Creatinine trended down from 4-2.8 this morning Nephrology is following the patient Renal ultrasound did not show hydronephrosis (6) Hypokalemia Current Visit: Yes Status: Resolved Plan to address problem: Was low this morning and repleted and will check potassium Patient has transaminitis -LFTs and is down to normal, right upper quadrant ultrasound noted Patient's nausea is getting better and vomiting resolved -CT abdomen pelvis is normal Elevated TSH but normal free T4; no acute management needed follow-up as an outpatient (7) DVT prophylaxis Current Visit: Yes Status: Acute Plan to address problem: Heparin subcu and GI prophylaxis Patient was evaluated by PT OT; and recommend skilled PT Disposition; continue inpatient care. Patient need reevaluation by PT. History Interval history: Patient was seen and evaluated this morning Patient's nausea is getting better and no vomiting He ate his breakfast No vomiting from this morning CT abdomen pelvis is normal Hospitalist Physical - Physical exam Narrative exam: Not in cardiopulmonary distress. The patient appeared well nourished and normally developed. Vital signs as documented. Head exam is unremarkable. No scleral icterus . Neck is without jugular venous distension, thyromegaly, or carotid bruits. Lungs are clear to auscultation. Cardiac exam reveals regular rate and Rhythm. Abdominal exam reveals normal bowel sounds, nontender, no organomegaly. Extremities are nonedematous and both femoral and pedal pulses are normal. 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 No focal weakness. - Constitutional Vitals: Temp Pulse Resp BP Pulse Ox 98.3 F 48 L 20 122/70 97 07/25/20 04:47 07/25/20 04:47 07/25/20 04:47 07/25/20 04:47 07/25/20 04:47 General appearance: Present: no acute distress, well-nourished HEART Score - HEART Score Age: 45-65 Risk factors: 1-2 risk factors Troponin: Troponin T 0.024 ng/mL (0.00-0.029) 07/19/20 13:48 Troponin: 1-3x normal limit - Critical Actions Critical Actions: 4-6 pts:12-16.6% risk of adverse cardiac event. Should be admitted Results - Labs CBC & Chem 7: 07/20/20 03:40 07/25/20 05:12 Labs: Laboratory Last Values WBC 10.7 K/mm3 (4.5-11.0) 07/20/20 03:40 RBC 5.02 M/mm3 (3.65-5.03) 07/20/20 03:40 Hgb 15.0 gm/dl (11.8-15.2) 07/20/20 03:40 Hct 45.3 % (35.5-45.6) 07/20/20 03:40 MCV 90 fl (84-94) 07/20/20 03:40 MCH 30 pg (28-32) 07/20/20 03:40 MCHC 33 % (32-34) 07/20/20 03:40 RDW 15.9 % (13.2-15.2) H 07/20/20 03:40 Plt Count 167 K/mm3 (140-440) 07/20/20 03:40 Add Manual Diff Complete 07/20/20 03:40 Total Counted 100 07/20/20 03:40 Seg Neuts % (Manual) 92.0 % (40.0-70.0) H 07/20/20 03:40 Band Neutrophils % 0 % 07/20/20 03:40 Lymphocytes % (Manual) 3.0 % (13.4-35.0) L 07/20/20 03:40 Reactive Lymphs % (Man) 0 % 07/20/20 03:40 Monocytes % (Manual) 5.0 % (0.0-7.3) 07/20/20 03:40 Eosinophils % (Manual) 0 % (0.0-4.3) 07/20/20 03:40 Basophils % (Manual) 0 % (0.0-1.8) 07/20/20 03:40 Metamyelocytes % 0 % 07/20/20 03:40 Myelocytes % 0 % 07/20/20 03:40 Promyelocytes % 0 % 07/20/20 03:40 Blast Cells % 0 % 07/20/20 03:40 Nucleated RBC % Not Reportable 07/20/20 03:40 Seg Neutrophils # Man 9.8 K/mm3 (1.8-7.7) H 07/20/20 03:40 Band Neutrophils # 0.0 K/mm3 07/20/20 03:40 Lymphocytes # (Manual) 0.3 K/mm3 (1.2-5.4) L 07/20/20 03:40 Abs React Lymphs (Man) 0.0 K/mm3 07/20/20 03:40 Monocytes # (Manual) 0.5 K/mm3 (0.0-0.8) 07/20/20 03:40 Eosinophils # (Manual) 0.0 K/mm3 (0.0-0.4) 07/20/20 03:40 Basophils # (Manual) 0.0 K/mm3 (0.0-0.1) 07/20/20 03:40 Metamyelocytes # 0.0 K/mm3 07/20/20 03:40 Myelocytes # 0.0 K/mm3 07/20/20 03:40 Promyelocytes # 0.0 K/mm3 07/20/20 03:40 Blast Cells # 0.0 K/mm3 07/20/20 03:40 WBC Morphology Not Reportable 07/20/20 03:40 Hypersegmented Neuts Not Reportable 07/20/20 03:40 Hyposegmented Neuts Not Reportable 07/20/20 03:40 Hypogranular Neuts Not Reportable 07/20/20 03:40 Smudge Cells Not Reportable 07/20/20 03:40 Toxic Granulation Not Reportable 07/20/20 03:40 Toxic Vacuolation Not Reportable 07/20/20 03:40 Dohle Bodies Not Reportable 07/20/20 03:40 Pelger-Huet Anomaly Not Reportable 07/20/20 03:40 Lilliam Rods Not Reportable 07/20/20 03:40 Platelet Estimate Consistent w auto 07/20/20 03:40 Clumped Platelets Not Reportable 07/20/20 03:40 Plt Clumps, EDTA Not Reportable 07/20/20 03:40 Large Platelets Not Reportable 07/20/20 03:40 Giant Platelets Not Reportable 07/20/20 03:40 Platelet Satelliting Not Reportable 07/20/20 03:40 Plt Morphology Comment Not Reportable 07/20/20 03:40 RBC Morphology Not Reportable 07/20/20 03:40 Dimorphic RBCs Not Reportable 07/20/20 03:40 Polychromasia Not Reportable 07/20/20 03:40 Hypochromasia Not Reportable 07/20/20 03:40 Poikilocytosis Not Reportable 07/20/20 03:40 Anisocytosis 1+ 07/20/20 03:40 Microcytosis Not Reportable 07/20/20 03:40 Macrocytosis Not Reportable 07/20/20 03:40 Spherocytes Not Reportable 07/20/20 03:40 Pappenheimer Bodies Not Reportable 07/20/20 03:40 Sickle Cells Not Reportable 07/20/20 03:40 Target Cells Not Reportable 07/20/20 03:40 Tear Drop Cells Not Reportable 07/20/20 03:40 Ovalocytes Not Reportable 07/20/20 03:40 Helmet Cells Not Reportable 07/20/20 03:40 [place] Bodies Not Reportable 07/20/20 03:40 [place] Rings Not Reportable 07/20/20 03:40 Morteza Cells Not Reportable 07/20/20 03:40 Bite Cells Not Reportable 07/20/20 03:40 Crenated Cell Not Reportable 07/20/20 03:40 Elliptocytes Not Reportable 07/20/20 03:40 Acanthocytes (Spur) Not Reportable 07/20/20 03:40 Rouleaux Not Reportable 07/20/20 03:40 Hemoglobin C Crystals Not Reportable 07/20/20 03:40 Schistocytes Not Reportable 07/20/20 03:40 Malaria parasites Not Reportable 07/20/20 03:40 Philipp Bodies Not Reportable 07/20/20 03:40 Hem Pathologist Commnt No 07/20/20 03:40 PT 18.5 Sec. (12.2-14.9) H 07/19/20 13:48 INR 1.51 (0.87-1.13) H 07/19/20 13:48 APTT 32.6 Sec. (24.2-36.6) 07/19/20 13:48 Sodium 141 mmol/L (137-145) 07/25/20 05:12 Potassium 3.2 mmol/L (3.6-5.0) L 07/25/20 05:12 Chloride 102.8 mmol/L (98-107) 07/25/20 05:12 Carbon Dioxide 22 mmol/L (22-30) 07/25/20 05:12 Anion Gap 19 mmol/L 07/25/20 05:12 BUN 38 mg/dL (9-20) H 07/25/20 05:12 Creatinine 1.7 mg/dL (0.8-1.3) H 07/25/20 05:12 Estimated GFR 50 ml/min 07/25/20 05:12 BUN/Creatinine Ratio 22 % 07/25/20 05:12 Glucose 91 mg/dL (75-100) 07/25/20 05:12 POC Glucose 96 (70-105) 07/23/20 22:03 Hemoglobin A1c 5.7 % (4-6) 07/20/20 03:40 Calcium 8.8 mg/dL (8.4-10.2) 07/25/20 05:12 Phosphorus 4.00 mg/dL (2.5-4.5) 07/21/20 05:17 Magnesium 2.40 mg/dL (1.7-2.3) H 07/19/20 13:48 Total Bilirubin 0.50 mg/dL (0.1-1.2) 07/25/20 05:12 Direct Bilirubin < 0.2 mg/dL (0-0.2) 07/22/20 13:01 Indirect Bilirubin 0.1 mg/dL 07/22/20 13:01 AST 33 units/L (5-40) 07/25/20 05:12 ALT 63 units/L (7-56) H 07/25/20 05:12 Alkaline Phosphatase 71 units/L (35-129) 07/25/20 05:12 Total Creatine Kinase 280 units/L (55-170) H 07/19/20 13:48 CK-MB (CK-2) 4.6 ng/mL (0.0-4.0) H 07/19/20 13:48 CK-MB (CK-2) Rel Index 1.6 (0-4) 07/19/20 13:48 Troponin T 0.024 ng/mL (0.00-0.029) 07/19/20 13:48 NT-Pro-B Natriuret Pep 1008 pg/mL (0-900) H 07/19/20 13:48 Total Protein 6.4 g/dL (6.3-8.2) 07/25/20 05:12 Albumin 3.1 g/dL (3.9-5) L 07/25/20 05:12 Albumin/Globulin Ratio 0.9 % 07/25/20 05:12 Lipase 23 units/L (13-60) 07/23/20 05:29 TSH 5.460 mlU/mL (0.270-4.200) H 07/19/20 13:48 Free T4 1.17 ng/dL (0.76-1.46) 07/19/20 13:48 Urine Color Mylene (Yellow) 07/19/20 Unknown Urine Turbidity Cloudy (Clear) 07/19/20 Unknown Urine pH 7.0 (5.0-7.0) 07/19/20 Unknown Ur Specific [place] 1.017 (1.003-1.030) 07/19/20 Unknown Urine Protein 100 mg/dl mg/dL (Negative) 07/19/20 Unknown Urine Glucose (UA) Neg mg/dL (Negative) 07/19/20 Unknown Urine Ketones Neg mg/dL (Negative) 07/19/20 Unknown Urine Blood Lg (Negative) 07/19/20 Unknown Urine Nitrite Neg (Negative) 07/19/20 Unknown Urine Bilirubin Neg (Negative) 07/19/20 Unknown Urine Urobilinogen < 2.0 mg/dL (<2.0) 07/19/20 Unknown Ur Leukocyte Esterase Lg (Negative) 07/19/20 Unknown Urine WBC (Auto) 110.0 /HPF (0.0-6.0) H 07/19/20 Unknown Urine RBC (Auto) 68.0 /HPF (0.0-6.0) 07/19/20 Unknown U Epithel Cells (Auto) 1.0 /HPF (0-13.0) 07/19/20 Unknown Urine Bacteria (Auto) 4+ /HPF (Negative) 07/19/20 Unknown Urine Mucus Few /HPF 07/19/20 Unknown Urine Eosinophils None seen (None Seen) 07/20/20 Unknown Urine Creatinine 110.3 mg/dL (0.1-20.0) H 07/20/20 Unknown Urine Creatinine 111.4 mg/dL (0.1-20.0) H 07/20/20 Unknown Protein/Creatinin Ratio 0.57 07/20/20 Unknown Urine Sodium 41 mmol/L 07/20/20 Unknown Urine Total Protein 63 mg/dL (5-11.8) H 07/20/20 Unknown Urine Total Protein 63 mg/dL (5-11.8) H 07/20/20 Unknown Plasma/Serum Alcohol < 0.01 % (0-0.07) 07/19/20 13:48 C. difficile Tox (PCR) Negative (Negative) 07/22/20 16:36 Hepatitis A IgM Ab Non-reactive (NonReactive) 07/22/20 13:01 Hep Bs Antigen Non-reactive (Negative) 07/22/20 13:01 Hep B Core IgM Ab Non-reactive (NonReactive) 07/22/20 13:01 Hepatitis C Antibody Non-reactive (NonReactive) 07/22/20 13:01 Microbiology: Microbiology 07/21/20 14:35 Peripheral/Venous Blood Culture - Preliminary NO GROWTH AFTER 72 HOURS 07/21/20 14:35 Peripheral/Venous Blood Culture - Preliminary NO GROWTH AFTER 72 HOURS 07/21/20 Unknown Urine,Clean Catch Urine Culture - Final Proteus Mirabilis - Diagnostic Impressions Diagnostic Impressions: Echocardiogram 07/20/20 09:12 Transthoracic Echocardiogram Indication: SOB BP: 101/77 Conclusions *The study is technically limited due to poor parasternal windows. *The study quality is technically difficult. Patient heart rate is iiregularly irregular,making interpretaion difficult. *The estimated ejection fraction is 45-50%. *Abnormal left ventricular diastolic filling is observed, consistent with impaired relaxation. *The right ventricular cavity size is normal. *The mitral valve leaflets are mildly thickened. *The right ventricular systolic pressure is calculated at 19 mmHg. Findings Procedure Info: The study quality is technically difficult. The study is technically limited due to poor parasternal windows. Left Ventricle: The estimated ejection fraction is 45-50%. Abnormal septal motion noted. Abnormal left ventricular diastolic filling is observed, consistent with impaired relaxation. Left Atrium: The left atrial chamber size is normal. Right Ventricle: The right ventricular cavity size is normal. Right Atrium: The right atrial cavity size is normal. Aortic Valve: The aortic valve leaflets are mildly thickened. There is trace of aortic regurgitation. Mitral Valve: The mitral valve leaflets are mildly thickened. Tricuspid Valve: The tricuspid valve leaflets are normal. There is trace tricuspid regurgitation. The right ventricular systolic pressure is calculated at 19 mmHg. Pericardium: There is no pericardial effusion. Measurements Volumes/Mass Name Value Normal Range LA ESV SP 4CH (A/L) 24.56 ml - LA ESV SP 2CH (A/L) 24.96 ml - LA ESV BP (A/L) 25.22 ml - LA ESV BP (A/L) index 13.27 ml/m2 - LA ESV SP 4CH (MOD) 22.25 ml - LA ESV SP 2CH (MOD) 24.68 ml - LA ESV BP (MOD) 23.72 ml - LA ESV BP (MOD) index 12.48 ml/m2 - Diastolic/Systolic Function Name Value Normal Range MV E-wave Vmax 0.36 m/sec - MV deceleration time 245.25 msec - MV A-wave Vmax 0.62 m/sec - MV E:A ratio 0.58 ratio - Aortic Valve Name Value Normal Range AV Vmax 1.35 m/sec - AV VTI 20.3 cm - AV peak gradient 7.33 mmHg - AV mean gradient 4.5 mmHg - LVOT Vmax 1.1 m/sec - LVOT VTI 15.68 cm - LVOT peak gradient 4.97 mmHg - LVOT mean gradient 2.72 mmHg - Tricuspid Valve Name Value Normal Range TR Vmax 2 m/sec - TR peak gradient 16 mmHg - RAP 3 mmHg - RVSP 19 mmHg - Tineo/IV: Voiding Method Condom Catheter IV Catheter Type [Right CVL Femoral] IV Catheter Type [Right Hand] INT / Saline Lock IV Catheter Type [Right INT / Saline Lock Forearm] Active Medications - Current Medications Current Medications: Generic Name Dose Route Start Last Admin Trade Name Freq PRN Reason Stop Dose Admin Acetaminophen 650 mg 07/19/20 22:45 Tylenol PO Q4H PRN Pain MILD(1-3)/Fever >100.5/HAZEL Amiodarone HCl 200 mg 07/23/20 12:00 07/24/20 21:59 Cordarone PO 200 mg BID EUNICE Administration Famotidine 20 mg 07/21/20 11:00 07/24/20 09:02 Pepcid PO 20 mg QAM EUNICE Administration Ceftriaxone Sodium 1 gm in 50 mls @ 100 mls/hr 07/20/20 09:00 07/24/20 09:02 Rocephin/Ns 1 Gm/50 Ml IV 07/26/20 10:29 100 mls/hr Q24HR EUNICE Administration Protocol Sodium Chloride 1,000 mls @ 75 mls/hr 07/22/20 12:00 07/24/20 17:59 Nacl 0.45% 1000 Ml IV 75 mls/hr DIRECT EUNICE Administration Potassium Chloride 10 meq in 100 mls @ 100 mls/hr 07/25/20 09:00 Kcl 10meq/100ml IV 07/25/20 12:59 Q1H EUNICE Metoclopramide HCl 5 mg 07/19/20 22:45 07/22/20 18:03 Reglan IV 5 mg Q6H PRN Administration Nausea And Vomiting Metoprolol Tartrate 25 mg 07/23/20 22:00 07/24/20 21:59 Metoprolol PO 25 mg BID EUNICE Administration Midodrine 5 mg 07/22/20 12:00 07/24/20 18:00 Proamatine PO 5 mg TID@0800,1200,1600 EUNICE Administration Morphine Sulfate 2 mg 07/19/20 22:45 07/20/20 11:45 Morphine IV 2 mg Q4H PRN Administration Pain, Moderate (4-6) Morphine Sulfate 4 mg 07/19/20 22:45 Morphine IV Q4H PRN Pain , Severe (7-10) Ondansetron HCl 4 mg 07/19/20 22:45 07/24/20 11:41 Zofran IV 4 mg Q8H PRN Administration Nausea And Vomiting Sodium Chloride 10 ml 07/20/20 10:00 07/24/20 21:59 Sodium Chloride Flush Syringe 10 Ml IV 10 ml BID EUNICE Administration Sodium Chloride 10 ml 07/19/20 22:45 07/22/20 01:04 Sodium Chloride Flush Syringe 10 Ml IV 10 ml PRN PRN Administration LINE FLUSH
[2020-07-25] MEDS: MIDODRINE 5 MG TAB PO SCH ×3 (08:20→14:59)
[2020-07-25] MEDS: SODIUM CHLORIDE 0.45% 1000 ML 1,000 ML IV SCH (08:21)
[2020-07-25] MEDS: cefTRIAXone/NS 1 GM/50 ML 1 GM/50 ML BAG IV SCH (09:03)
[2020-07-25] MEDS: FAMOTIDINE 20 MG TAB PO SCH (09:03)
[2020-07-25] MEDS: POTASSIUM CHLORIDE 10 MEQ 10 MEQ/100 ML BAG IV SCH ×4 (09:03→14:59)
[2020-07-25] MEDS: AMIODARONE 200 MG TAB PO SCH ×2 (09:04→21:25)
[2020-07-25] MEDS: METOPROLOL TARTRATE 25 MG TAB PO SCH ×2 (09:04→21:25)
--- NOTE | 2020-07-25 13:00 | Progress Note ---
Assessment and Plan (1) AMS (altered mental status) Current Visit: Yes Status: Acute Plan to address problem: Much improve. Back to baseline (2) Acute on chronic renal failure Current Visit: Yes Status: Acute Plan to address problem: Management as per nephrology. Avoid nephrotoxins (3) Atrial fibrillation with rapid ventricular response Current Visit: Yes Status: Acute Plan to address problem: Management as per cardiology. (4) Hypotension Current Visit: Yes Status: Acute Qualifiers: Hypotension type: unspecified hypotension type Qualified Code(s): I95.9 - Hypotension, unspecified Plan to address problem: Improving with IV fluids and midodrine Monitor respiratory status carefully while on fluids Monitor hemodynamics, reanl functions and electrolyte profile (5) Syncope Current Visit: Yes Status: Acute Plan to address problem: Patient sleeping at this time. Management as per Neurology and primary care. (6) UTI (urinary tract infection) Current Visit: Yes Status: Acute Plan to address problem: Patient is on ceftriaxone. (7) History of CVA (cerebrovascular accident) Current Visit: Yes Status: Chronic Plan to address problem: Management as per neurology and primary care. Subjective Date of service: 07/25/20 Principal diagnosis: Atrial fibrillation with RVR, hypotension, UTI Interval history: Seen and examined. Vitals, albs, medications, chart reviewed. Awake and alert, denies any chest pain, no shortness of breath. No fevers or chills. States the peripheral IV on his left forearm is burning. Objective Vital Signs - 12hr 07/25/20 07/25/20 07/25/20 04:47 09:03 10:00 Temperature 98.3 F 98.8 F Pulse Rate 48 L 47 L 75 Respiratory 20 18 Rate Blood Pressure 122/70 114/71 O2 Sat by Pulse 97 99 Oximetry Constitutional: no acute distress, alert Eyes: non-icteric ENT: oropharynx moist Neck: supple, no lymphadenopathy Effort: normal Ascultation: Bilateral: clear Cardiovascular: regular rate and rhythm, other (S1,S2) Gastrointestinal: normoactive bowel sounds, soft, non-tender Integumentary: other (Hyperpigmentation on left side of face.) Extremities: no cyanosis, no edema, other (left hand deformities with contractur) Neurologic: normal mental status, non-focal exam, pupils equal and round, motor strength normal and Psychiatric: mood appropriate, affect normal CBC and BMP: 07/20/20 03:40 07/25/20 05:12 ABG, PT/INR, D-dimer: PT/INR, D-dimer PT 18.5 Sec. (12.2-14.9) H 07/19/20 13:48 INR 1.51 (0.87-1.13) H 07/19/20 13:48 Abnormal lab findings: Abnormal Labs 07/19/20 07/19/20 07/19/20 13:48 13:48 13:48 RDW 15.3 H Seg Neuts % (Manual) Lymphocytes % (Manual) Seg Neutrophils # Man Lymphocytes # (Manual) PT 18.5 H INR 1.51 H Sodium 148 H Potassium 2.9 L* Chloride Carbon Dioxide 11 L BUN 28 H Creatinine 2.5 H Glucose 197 H POC Glucose Magnesium 2.40 H AST ALT Total Creatine Kinase 280 H CK-MB (CK-2) 4.6 H NT-Pro-B Natriuret Pep 1008 H Total Protein Albumin 3.3 L TSH Urine WBC (Auto) Urine Creatinine Urine Total Protein 07/19/20 07/19/20 07/20/20 13:48 Unknown 03:40 RDW 15.9 H Seg Neuts % (Manual) 92.0 H Lymphocytes % (Manual) 3.0 L Seg Neutrophils # Man 9.8 H Lymphocytes # (Manual) 0.3 L PT INR Sodium Potassium Chloride Carbon Dioxide BUN Creatinine Glucose POC Glucose Magnesium AST ALT Total Creatine Kinase CK-MB (CK-2) NT-Pro-B Natriuret Pep Total Protein Albumin TSH 5.460 H Urine WBC (Auto) 110.0 H Urine Creatinine Urine Total Protein 07/20/20 07/20/20 07/20/20 03:40 Unknown Unknown RDW Seg Neuts % (Manual) Lymphocytes % (Manual) Seg Neutrophils # Man Lymphocytes # (Manual) PT INR Sodium 147 H Potassium Chloride Carbon Dioxide 19 L D BUN 49 H Creatinine 3.3 H Glucose 169 H POC Glucose Magnesium AST 133 H ALT 73 H Total Creatine Kinase CK-MB (CK-2) NT-Pro-B Natriuret Pep Total Protein Albumin 3.6 L TSH Urine WBC (Auto) Urine Creatinine 111.4 H 110.3 H Urine Total Protein 63 H 63 H 07/21/20 07/21/20 07/22/20 00:33 05:17 04:47 RDW Seg Neuts % (Manual) Lymphocytes % (Manual) Seg Neutrophils # Man Lymphocytes # (Manual) PT INR Sodium 149 H 149 H Potassium 3.1 L Chloride 111.4 H 109.6 H Carbon Dioxide 21 L BUN 66 H 70 H Creatinine 3.2 H 3.5 H Glucose 141 H 136 H POC Glucose 139 H Magnesium AST ALT Total Creatine Kinase CK-MB (CK-2) NT-Pro-B Natriuret Pep Total Protein Albumin TSH Urine WBC (Auto) Urine Creatinine Urine Total Protein 07/22/20 07/22/20 07/23/20 13:01 13:01 05:29 RDW Seg Neuts % (Manual) Lymphocytes % (Manual) Seg Neutrophils # Man Lymphocytes # (Manual) PT INR Sodium Potassium 3.4 L 3.3 L Chloride Carbon Dioxide 21 L BUN 72 H Creatinine 4.0 H Glucose 106 H POC Glucose Magnesium AST 58 H 68 H ALT 70 H 86 H Total Creatine Kinase CK-MB (CK-2) NT-Pro-B Natriuret Pep Total Protein 6.2 L Albumin 2.8 L 2.9 L TSH Urine WBC (Auto) Urine Creatinine Urine Total Protein 07/24/20 07/25/20 04:30 05:12 RDW Seg Neuts % (Manual) Lymphocytes % (Manual) Seg Neutrophils # Man Lymphocytes # (Manual) PT INR Sodium Potassium 3.4 L 3.2 L Chloride Carbon Dioxide BUN 60 H 38 H Creatinine 2.8 H 1.7 H Glucose POC Glucose Magnesium AST 50 H ALT 79 H 63 H Total Creatine Kinase CK-MB (CK-2) NT-Pro-B Natriuret Pep Total Protein Albumin 3.0 L 3.1 L TSH Urine WBC (Auto) Urine Creatinine Urine Total Protein Allied health notes reviewed: nursing
--- NOTE | 2020-07-25 13:44 | Progress Note ---
Assessment and Plan Assessment: Acute Renal Failure secondary IATN vs Prerenal on CKD: Hypotension: Afib: Hypokalemia: Plan: -Cr cont to improve -n indication for [employer]GER [employer] -Renal ultrasound- Medical renal disease. Simple bilateral renal cysts. No obstruction. -CXR: no acute findings -Hypotension-S/P Levophed drip. On Midorine 5 mg po TID -Echocardiogram-EF 45-50% per Cardiology -No urine eosinophils seen -Obtain daily weights -Avoid Nephrotoxic agents -Continue to monitor renal function closely González Vazquez MD [phone] Subjective Date of service: 07/25/20 Principal diagnosis: Atrial fibrillation with RVR, hypotension, UTI Interval history: denies acute issues, nausea is better Objective - Vital Signs Vital signs: Vital Signs - 12hr 07/25/20 07/25/20 07/25/20 04:47 09:03 10:00 Temperature 98.3 F 98.8 F Pulse Rate 48 L 47 L 75 Respiratory 20 18 Rate Blood Pressure 122/70 114/71 O2 Sat by Pulse 97 99 Oximetry - Lab 07/20/20 03:40 07/25/20 05:12 Most recent lab results Calcium 8.8 mg/dL (8.4-10.2) 07/25/20 05:12 Phosphorus 4.00 mg/dL (2.5-4.5) 07/21/20 05:17 Magnesium 2.40 mg/dL (1.7-2.3) H 07/19/20 13:48 Urine Creatinine 110.3 mg/dL (0.1-20.0) H 07/20/20 Unknown Urine Creatinine 111.4 mg/dL (0.1-20.0) H 07/20/20 Unknown Urine Sodium 41 mmol/L 07/20/20 Unknown Urine Total Protein 63 mg/dL (5-11.8) H 07/20/20 Unknown Urine Total Protein 63 mg/dL (5-11.8) H 07/20/20 Unknown Medications & Allergies - Medications Allergies/Adverse Reactions: Allergies No Known Allergies Allergy (Unverified 07/19/20 14:28) Home Medications: Home Medications Medication Instructions Recorded Confirmed Last Taken Type amLODIPine [Norvasc] 5 mg PO DAILY 07/20/20 07/20/20 Unknown History lisinopriL [Zestril TAB] 40 mg PO QDAY 07/20/20 07/20/20 Unknown History Active Medications: Generic Name Dose Route Start Last Admin Trade Name Freq PRN Reason Stop Dose Admin Acetaminophen 650 mg 07/19/20 22:45 Tylenol PO Q4H PRN Pain MILD(1-3)/Fever >100.5/HAZEL Amiodarone HCl 200 mg 07/23/20 12:00 07/25/20 09:04 Cordarone PO 200 mg BID EUNICE Administration Famotidine 20 mg 07/21/20 11:00 07/25/20 09:03 Pepcid PO 20 mg QAM EUNICE Administration Ceftriaxone Sodium 1 gm in 50 mls @ 100 mls/hr 07/20/20 09:00 07/25/20 09:03 Rocephin/Ns 1 Gm/50 Ml IV 07/26/20 10:29 100 mls/hr Q24HR EUNICE Administration Protocol Sodium Chloride 1,000 mls @ 75 mls/hr 07/22/20 12:00 07/25/20 08:21 Nacl 0.45% 1000 Ml IV 75 mls/hr DIRECT EUNICE Administration Metoclopramide HCl 5 mg 07/19/20 22:45 07/22/20 18:03 Reglan IV 5 mg Q6H PRN Administration Nausea And Vomiting Metoprolol Tartrate 25 mg 07/23/20 22:00 07/25/20 09:04 Metoprolol PO 25 mg BID EUNICE Administration Midodrine 5 mg 07/22/20 12:00 07/25/20 12:27 Proamatine PO 5 mg TID@0800,1200,1600 EUNICE Administration Morphine Sulfate 2 mg 07/19/20 22:45 07/20/20 11:45 Morphine IV 2 mg Q4H PRN Administration Pain, Moderate (4-6) Morphine Sulfate 4 mg 07/19/20 22:45 Morphine IV Q4H PRN Pain , Severe (7-10) Ondansetron HCl 4 mg 07/19/20 22:45 07/24/20 11:41 Zofran IV 4 mg Q8H PRN Administration Nausea And Vomiting Sodium Chloride 10 ml 07/20/20 10:00 07/25/20 09:04 Sodium Chloride Flush Syringe 10 Ml IV 10 ml BID EUNICE Administration Sodium Chloride 10 ml 07/19/20 22:45 07/22/20 01:04 Sodium Chloride Flush Syringe 10 Ml IV 10 ml PRN PRN Administration LINE FLUSH
[2020-07-26] MEDS: SODIUM CHLORIDE 0.45% 1000 ML 1,000 ML IV SCH (04:33)
--- NOTE | 2020-07-26 10:06 | Progress Note ---
Assessment and Plan - Patient Problems (1) JESSIKA (acute kidney injury) Current Visit: Yes Status: Acute Plan to address problem: Patient renal function has improved initial acute on chronic kidney disease BUN 49 a 3.5 and since hydration has decreased to 38 and 1.5. Renal ultrasound showed medical renal disease. There is no indication for hemodialysis. (2) AMS (altered mental status) Current Visit: Yes Status: Acute Plan to address problem: Resolved. Patient is alert doing okay denies pain. (3) Acute on chronic renal failure Current Visit: Yes Status: Acute Plan to address problem: See above acute kidney injury. (4) Atrial fibrillation with rapid ventricular response Current Visit: Yes Status: Acute Plan to address problem: Patient was weaned off cardene drip Heart rate is going up and down went down and in the 50,s to 60;s now Cardiology consult appreciated, patient was on amiodarone gtt. and metoprolol. Currently on p.o. amiodarone Patient's heart rate is in the 80s but irregularly irregular Echocardiogram showed ejection fraction of 40 to 45%, diastolic dysfunction (5) Hypotension Current Visit: Yes Status: Acute Qualifiers: Qualified Code(s): I95.9 - Hypotension, unspecified Plan to address problem: Continue on Mdodrine (6) Sepsis Current Visit: Yes Status: Suspected Plan to address problem: epsis and differential diagnosis Patient is hypotensive. Currently stable Patient has UTI with white blood cells of 110 in the urine Continue with IV ceftriaxone Urine grew Proteus which was pansensitive. Treated with Rocephin. Resolved. Sepsis been treated. Subjective Date of service: 07/26/20 Principal diagnosis: Atrial fibrillation with RVR, hypotension, UTI Interval history: Assessment and plan: 60-year-old male with history of hypertension and cerebrovascular accident in the past brought in by EMS with a chief complaint of altered mental status. Per EMS the patient was behaving like his normal self approximately 45 minutes prior to arrival. The patient's half sole fitter found the patient unresponsive and slumped over in the bathroom on the toilet. Per EMS the patient was in A. fib with RVR. EMS states that they were unable to obtain a blood pressure. They attempted to cardiovert the patient x2 at 50 J unsuccessfully. Today the patient is alert no pain state she is doing ok Objective - Constitutional Vitals: Vital Signs - 12hr 07/25/20 07/26/20 07/26/20 23:37 04:20 09:04 Temperature 98.0 F 98.0 F 98.2 F Pulse Rate 46 L 48 L 53 L Respiratory 18 18 18 Rate Blood Pressure 111/75 137/79 134/68 O2 Sat by Pulse 100 98 97 Oximetry General appearance: Present: no acute distress, well-nourished - EENT Eyes: PERRL, EOM intact ENT: hearing intact, clear oral mucosa Ears: bilateral: normal - Neck Neck: supple, normal ROM - Respiratory Respiratory effort: normal Respiratory: bilateral: CTA - Breasts Breasts: normal - Cardiovascular Rhythm: regular Heart Sounds: Present: S1 & S2. Absent: gallop, rub Extremities: pulses intact, No edema, normal color, Full ROM - Gastrointestinal General gastrointestinal: Present: soft, non-tender, non-distended, normal bowel sounds - Genitourinary Male genitourinary: normal - Integumentary Integumentary: clear, warm, dry - Musculoskeletal Musculoskeletal: 1, strength equal bilaterally - Neurologic Neurologic: moves all extremities - Psychiatric Psychiatric: memory intact, appropriate mood/affect, intact judgment & insight - Labs CBC & Chem 7: 07/20/20 03:40 07/25/20 05:12 HEART Score - HEART Score Age: 45-65 Risk factors: 1-2 risk factors Troponin: Troponin T 0.024 ng/mL (0.00-0.029) 07/19/20 13:48 Troponin: 1-3x normal limit - Critical Actions Critical Actions: 4-6 pts:12-16.6% risk of adverse cardiac event. Should be admitted
--- NOTE | 2020-07-26 10:19 | Progress Note ---
Assessment and Plan Assessment: Acute Renal Failure secondary IATN vs Prerenal on CKD: Hypotension: Afib: Hypokalemia: Plan: -labs are pending this AM -n indication for [employer]AM [employer] -Renal ultrasound- Medical renal disease. Simple bilateral renal cysts. No obstruction. -CXR: no acute findings -Hypotension-S/P Levophed drip. On Midorine 5 mg po TID -Echocardiogram-EF 45-50% per Cardiology -No urine eosinophils seen -Obtain daily weights -Avoid Nephrotoxic agents -Continue to monitor renal function closely González Vazquez MD [phone] Subjective Date of service: 07/26/20 Principal diagnosis: Atrial fibrillation with RVR, hypotension, UTI Interval history: no overnight events Objective - Vital Signs Vital signs: Vital Signs - 12hr 07/25/20 07/26/20 07/26/20 23:37 04:20 09:04 Temperature 98.0 F 98.0 F 98.2 F Pulse Rate 46 L 48 L 53 L Respiratory 18 18 18 Rate Blood Pressure 111/75 137/79 134/68 O2 Sat by Pulse 100 98 97 Oximetry - Lab 07/20/20 03:40 07/25/20 05:12 Most recent lab results Calcium 8.8 mg/dL (8.4-10.2) 07/25/20 05:12 Phosphorus 4.00 mg/dL (2.5-4.5) 07/21/20 05:17 Magnesium 2.40 mg/dL (1.7-2.3) H 07/19/20 13:48 Urine Creatinine 110.3 mg/dL (0.1-20.0) H 07/20/20 Unknown Urine Creatinine 111.4 mg/dL (0.1-20.0) H 07/20/20 Unknown Urine Sodium 41 mmol/L 07/20/20 Unknown Urine Total Protein 63 mg/dL (5-11.8) H 07/20/20 Unknown Urine Total Protein 63 mg/dL (5-11.8) H 07/20/20 Unknown Medications & Allergies - Medications Allergies/Adverse Reactions: Allergies No Known Allergies Allergy (Unverified 07/19/20 14:28) Home Medications: Home Medications Medication Instructions Recorded Confirmed Last Taken Type amLODIPine [Norvasc] 5 mg PO DAILY 07/20/20 07/20/20 Unknown History lisinopriL [Zestril TAB] 40 mg PO QDAY 07/20/20 07/20/20 Unknown History Active Medications: Generic Name Dose Route Start Last Admin Trade Name Freq PRN Reason Stop Dose Admin Acetaminophen 650 mg 07/19/20 22:45 Tylenol PO Q4H PRN Pain MILD(1-3)/Fever >100.5/HAZEL Amiodarone HCl 200 mg 07/23/20 12:00 07/25/20 21:25 Cordarone PO 200 mg BID EUNICE Administration Famotidine 20 mg 07/21/20 11:00 07/25/20 09:03 Pepcid PO 20 mg QAM EUNICE Administration Ceftriaxone Sodium 1 gm in 50 mls @ 100 mls/hr 07/20/20 09:00 07/25/20 09:03 Rocephin/Ns 1 Gm/50 Ml IV 07/26/20 10:29 100 mls/hr Q24HR EUNICE Administration Protocol Sodium Chloride 1,000 mls @ 75 mls/hr 07/22/20 12:00 07/26/20 04:33 Nacl 0.45% 1000 Ml IV 75 mls/hr DIRECT EUNICE Administration Metoclopramide HCl 5 mg 07/19/20 22:45 07/22/20 18:03 Reglan IV 5 mg Q6H PRN Administration Nausea And Vomiting Metoprolol Tartrate 25 mg 07/23/20 22:00 07/25/20 21:25 Metoprolol PO 25 mg BID EUNICE Administration Midodrine 5 mg 07/22/20 12:00 07/25/20 14:59 Proamatine PO 5 mg TID@0800,1200,1600 EUNICE Administration Morphine Sulfate 2 mg 07/19/20 22:45 07/20/20 11:45 Morphine IV 2 mg Q4H PRN Administration Pain, Moderate (4-6) Morphine Sulfate 4 mg 07/19/20 22:45 Morphine IV Q4H PRN Pain , Severe (7-10) Ondansetron HCl 4 mg 07/19/20 22:45 07/24/20 11:41 Zofran IV 4 mg Q8H PRN Administration Nausea And Vomiting Sodium Chloride 10 ml 07/20/20 10:00 07/25/20 21:25 Sodium Chloride Flush Syringe 10 Ml IV 10 ml BID EUNICE Administration Sodium Chloride 10 ml 07/19/20 22:45 07/22/20 01:04 Sodium Chloride Flush Syringe 10 Ml IV 10 ml PRN PRN Administration LINE FLUSH
[2020-07-26] MEDS: FAMOTIDINE 20 MG TAB PO SCH (11:49)
[2020-07-26] MEDS: METOPROLOL TARTRATE 25 MG TAB PO SCH ×2 (11:49→21:44)
[2020-07-26] MEDS: AMIODARONE 200 MG TAB PO SCH ×2 (11:49→21:43)
[2020-07-26] MEDS: cefTRIAXone/NS 1 GM/50 ML 1 GM/50 ML BAG IV SCH (11:50)
[2020-07-26] MEDS: MIDODRINE 5 MG TAB PO SCH ×3 (11:50→18:18)
--- NOTE | 2020-07-26 13:05 | Progress Note ---
Assessment and Plan (1) AMS (altered mental status) Current Visit: Yes Status: Acute Plan to address problem: Much improve. Back to baseline (2) Acute on chronic renal failure Current Visit: Yes Status: Acute Plan to address problem: Management as per nephrology. Avoid nephrotoxins Replace potassium (3) Atrial fibrillation with rapid ventricular response Current Visit: Yes Status: Acute Plan to address problem: Management as per cardiology. (4) Hypotension Current Visit: Yes Status: Acute Qualifiers: Hypotension type: unspecified hypotension type Qualified Code(s): I95.9 - Hypotension, unspecified Plan to address problem: Improving with IV fluids and midodrine Monitor respiratory status carefully while on fluids Monitor hemodynamics, reanl functions and electrolyte profile (5) Syncope Current Visit: Yes Status: Acute Plan to address problem: Symptom management (6) UTI (urinary tract infection) Current Visit: Yes Status: Acute Plan to address problem: Patient is on ceftriaxone. (7) History of CVA (cerebrovascular accident) Current Visit: Yes Status: Chronic Plan to address problem: Management as per neurology and primary care. Discharge planning Subjective Date of service: 07/26/20 Principal diagnosis: Atrial fibrillation with RVR, hypotension, UTI Interval history: Seen and examined. Vitals, labs, medications, chart reviewed. Awake and alert, denies any chest pain, no shortness of breath. No fevers or chills. Objective Vital Signs - 12hr 07/26/20 07/26/20 04:20 09:04 Temperature 98.0 F 98.2 F Pulse Rate 48 L 53 L Respiratory 18 18 Rate Blood Pressure 137/79 134/68 O2 Sat by Pulse 98 97 Oximetry Constitutional: no acute distress, alert Eyes: non-icteric ENT: oropharynx moist Neck: supple, no lymphadenopathy Effort: normal Ascultation: Bilateral: clear Cardiovascular: regular rate and rhythm, other (S1,S2) Gastrointestinal: normoactive bowel sounds, soft, non-tender Integumentary: other (Hyperpigmentation on left side of face.) Extremities: no cyanosis, no edema, other (left hand deformities with contractur) Neurologic: normal mental status, non-focal exam, pupils equal and round, motor strength normal and Psychiatric: mood appropriate, affect normal CBC and BMP: 07/20/20 03:40 07/27/20 05:21 ABG, PT/INR, D-dimer: PT/INR, D-dimer PT 18.5 Sec. (12.2-14.9) H 07/19/20 13:48 INR 1.51 (0.87-1.13) H 07/19/20 13:48 Abnormal lab findings: Abnormal Labs 07/19/20 07/19/20 07/19/20 13:48 13:48 13:48 RDW 15.3 H Seg Neuts % (Manual) Lymphocytes % (Manual) Seg Neutrophils # Man Lymphocytes # (Manual) PT 18.5 H INR 1.51 H Sodium 148 H Potassium 2.9 L* Chloride Carbon Dioxide 11 L BUN 28 H Creatinine 2.5 H Glucose 197 H POC Glucose Magnesium 2.40 H AST ALT Total Creatine Kinase 280 H CK-MB (CK-2) 4.6 H NT-Pro-B Natriuret Pep 1008 H Total Protein Albumin 3.3 L TSH Urine WBC (Auto) Urine Creatinine Urine Total Protein 07/19/20 07/19/20 07/20/20 13:48 Unknown 03:40 RDW 15.9 H Seg Neuts % (Manual) 92.0 H Lymphocytes % (Manual) 3.0 L Seg Neutrophils # Man 9.8 H Lymphocytes # (Manual) 0.3 L PT INR Sodium Potassium Chloride Carbon Dioxide BUN Creatinine Glucose POC Glucose Magnesium AST ALT Total Creatine Kinase CK-MB (CK-2) NT-Pro-B Natriuret Pep Total Protein Albumin TSH 5.460 H Urine WBC (Auto) 110.0 H Urine Creatinine Urine Total Protein 07/20/20 07/20/20 07/20/20 03:40 Unknown Unknown RDW Seg Neuts % (Manual) Lymphocytes % (Manual) Seg Neutrophils # Man Lymphocytes # (Manual) PT INR Sodium 147 H Potassium Chloride Carbon Dioxide 19 L D BUN 49 H Creatinine 3.3 H Glucose 169 H POC Glucose Magnesium AST 133 H ALT 73 H Total Creatine Kinase CK-MB (CK-2) NT-Pro-B Natriuret Pep Total Protein Albumin 3.6 L TSH Urine WBC (Auto) Urine Creatinine 111.4 H 110.3 H Urine Total Protein 63 H 63 H 07/21/20 07/21/20 07/22/20 00:33 05:17 04:47 RDW Seg Neuts % (Manual) Lymphocytes % (Manual) Seg Neutrophils # Man Lymphocytes # (Manual) PT INR Sodium 149 H 149 H Potassium 3.1 L Chloride 111.4 H 109.6 H Carbon Dioxide 21 L BUN 66 H 70 H Creatinine 3.2 H 3.5 H Glucose 141 H 136 H POC Glucose 139 H Magnesium AST ALT Total Creatine Kinase CK-MB (CK-2) NT-Pro-B Natriuret Pep Total Protein Albumin TSH Urine WBC (Auto) Urine Creatinine Urine Total Protein 07/22/20 07/22/20 07/23/20 13:01 13:01 05:29 RDW Seg Neuts % (Manual) Lymphocytes % (Manual) Seg Neutrophils # Man Lymphocytes # (Manual) PT INR Sodium Potassium 3.4 L 3.3 L Chloride Carbon Dioxide 21 L BUN 72 H Creatinine 4.0 H Glucose 106 H POC Glucose Magnesium AST 58 H 68 H ALT 70 H 86 H Total Creatine Kinase CK-MB (CK-2) NT-Pro-B Natriuret Pep Total Protein 6.2 L Albumin 2.8 L 2.9 L TSH Urine WBC (Auto) Urine Creatinine Urine Total Protein 07/24/20 07/25/20 04:30 05:12 RDW Seg Neuts % (Manual) Lymphocytes % (Manual) Seg Neutrophils # Man Lymphocytes # (Manual) PT INR Sodium Potassium 3.4 L 3.2 L Chloride Carbon Dioxide BUN 60 H 38 H Creatinine 2.8 H 1.7 H Glucose POC Glucose Magnesium AST 50 H ALT 79 H 63 H Total Creatine Kinase CK-MB (CK-2) NT-Pro-B Natriuret Pep Total Protein Albumin 3.0 L 3.1 L TSH Urine WBC (Auto) Urine Creatinine Urine Total Protein Allied health notes reviewed: nursing
[2020-07-27] MEDS: SODIUM CHLORIDE 0.45% 1000 ML 1,000 ML IV SCH ×2 (05:52→21:46)
[2020-07-27 06:32] LABS: BUN/Creatinine Ratio 12; Blood Urea Nitrogen 16 mg/dL (9-20); Calcium 8.4 mg/dL (8.4-10.2); Hemolysis Index 3
[2020-07-27] MEDS ORDERED: POTASSIUM CHLORIDE ER 20 MEQ TAB PO ONE (06:40)
--- NOTE | 2020-07-27 08:56 | Progress Note ---
Assessment and Plan Assessment: Acute Renal Failure secondary IATN vs Prerenal on CKD: Hypotension: Afib: Hypokalemia: Plan: -JESSIKA resolved -Renal ultrasound- Medical renal disease. Simple bilateral renal cysts. No obstruction. -CXR: no acute findings -Hypotension-S/P Levophed drip. On Midorine 5 mg po TID -Echocardiogram-EF 45-50% per Cardiology -No urine eosinophils seen -Obtain daily weights -Avoid Nephrotoxic agents -Continue to monitor renal function closely will sign off, please reconsult if needed. González Vazquez MD [phone] Subjective Date of service: 07/27/20 Principal diagnosis: Atrial fibrillation with RVR, hypotension, UTI Interval history: denies chest pain or SOB Objective - Vital Signs Vital signs: Vital Signs - 12hr 07/26/20 07/27/20 07/27/20 21:44 00:00 00:03 Temperature 97.6 F Pulse Rate 49 L 103 H 42 L Respiratory 20 20 Rate Blood Pressure 123/69 110/60 O2 Sat by Pulse 97 Oximetry 07/27/20 07/27/20 07/27/20 04:00 04:25 08:13 Temperature 98.4 F 97.6 F Pulse Rate 100 H 43 L 49 L Respiratory 20 16 Rate Blood Pressure 111/73 127/76 O2 Sat by Pulse 98 97 Oximetry - Lab 07/20/20 03:40 07/27/20 05:21 Most recent lab results Calcium 8.4 mg/dL (8.4-10.2) 07/27/20 05:21 Phosphorus 4.00 mg/dL (2.5-4.5) 07/21/20 05:17 Magnesium 2.40 mg/dL (1.7-2.3) H 07/19/20 13:48 Urine Creatinine 110.3 mg/dL (0.1-20.0) H 07/20/20 Unknown Urine Creatinine 111.4 mg/dL (0.1-20.0) H 07/20/20 Unknown Urine Sodium 41 mmol/L 07/20/20 Unknown Urine Total Protein 63 mg/dL (5-11.8) H 07/20/20 Unknown Urine Total Protein 63 mg/dL (5-11.8) H 07/20/20 Unknown Medications & Allergies - Medications Allergies/Adverse Reactions: Allergies No Known Allergies Allergy (Unverified 07/19/20 14:28) Home Medications: Home Medications Medication Instructions Recorded Confirmed Last Taken Type amLODIPine [Norvasc] 5 mg PO DAILY 07/20/20 07/20/20 Unknown History lisinopriL [Zestril TAB] 40 mg PO QDAY 07/20/20 07/20/20 Unknown History Active Medications: Generic Name Dose Route Start Last Admin Trade Name Freq PRN Reason Stop Dose Admin Acetaminophen 650 mg 07/19/20 22:45 07/26/20 21:44 Tylenol PO 650 mg Q4H PRN Administration Pain MILD(1-3)/Fever >100.5/HAZEL Amiodarone HCl 200 mg 07/23/20 12:00 07/26/20 21:43 Cordarone PO 200 mg BID EUNICE Administration Famotidine 20 mg 07/21/20 11:00 07/26/20 11:49 Pepcid PO 20 mg QAM EUNICE Administration Sodium Chloride 1,000 mls @ 75 mls/hr 07/22/20 12:00 07/27/20 05:52 Nacl 0.45% 1000 Ml IV 75 mls/hr DIRECT EUNICE Administration Potassium Chloride 10 meq in 100 mls @ 100 mls/hr 07/27/20 08:00 Kcl 10meq/100ml IV 07/27/20 09:59 Q1H EUNICE Metoclopramide HCl 5 mg 07/19/20 22:45 07/22/20 18:03 Reglan IV 5 mg Q6H PRN Administration Nausea And Vomiting Metoprolol Tartrate 25 mg 07/23/20 22:00 07/26/20 21:44 Metoprolol PO Not Given BID EUNICE Midodrine 5 mg 07/22/20 12:00 07/26/20 18:18 Proamatine PO 5 mg TID@0800,1200,1600 EUNICE Administration Morphine Sulfate 2 mg 07/19/20 22:45 07/20/20 11:45 Morphine IV 2 mg Q4H PRN Administration Pain, Moderate (4-6) Morphine Sulfate 4 mg 07/19/20 22:45 Morphine IV Q4H PRN Pain , Severe (7-10) Ondansetron HCl 4 mg 07/19/20 22:45 07/24/20 11:41 Zofran IV 4 mg Q8H PRN Administration Nausea And Vomiting Sodium Chloride 10 ml 07/20/20 10:00 07/27/20 05:52 Sodium Chloride Flush Syringe 10 Ml IV 10 ml BID EUNICE Administration Sodium Chloride 10 ml 07/19/20 22:45 07/22/20 01:04 Sodium Chloride Flush Syringe 10 Ml IV 10 ml PRN PRN Administration LINE FLUSH
[2020-07-27] MEDS: POTASSIUM CHLORIDE 10 MEQ 10 MEQ/100 ML BAG IV SCH ×2 (09:02→10:42)
[2020-07-27] MEDS: METOPROLOL TARTRATE 25 MG TAB PO SCH ×3 (09:03→21:51)
[2020-07-27] MEDS: MIDODRINE 5 MG TAB PO SCH ×3 (09:03→17:38)
[2020-07-27] MEDS: FAMOTIDINE 20 MG TAB PO SCH (09:04)
[2020-07-27] MEDS: AMIODARONE 200 MG TAB PO SCH (09:04)
--- NOTE | 2020-07-27 12:58 | Progress Note ---
Assessment and Plan telemetry reviewed - in AFib HR 80s - 100s overnight (although bradycardia is inaccurately charted on vital sign flowsheet). Decrease amio to maintenance dosage of 200mg daily and increase lopressor dosage. Cont midodrine. Per discharge summary from [facility] in 10/2014, pt is known to have a history of paroxysmal atrial fibrillation. Pt does not appear to have been taking OAC at home for unknown reasons. Pt would benefit from [facility] systemic AC and there do not appear to be any contraindications to OAC. Initiate Eliquis 5mg BID. Replete K+. F/u BMP and Mg in AM. The patient has been seen in conjunction with Dr. Pancho Valles who agrees with the assessment and plan of care. - Patient Problems (1) Paroxysmal atrial fibrillation with rapid ventricular response Current Visit: Yes Status: Chronic (2) AMS (altered mental status) Current Visit: Yes Status: Resolved Plan to address problem: head CT with NAF (3) Sepsis Current Visit: Yes Status: Suspected (4) Hypotension Current Visit: Yes Status: Acute Qualifiers: Hypotension type: unspecified hypotension type Qualified Code(s): I95.9 - Hypotension, unspecified (5) UTI (urinary tract infection) Current Visit: Yes Status: Acute (6) Acute on chronic renal failure Current Visit: Yes Status: Acute (7) History of CVA (cerebrovascular accident) Current Visit: Yes Status: Chronic (8) History of DVT (deep vein thrombosis) Current Visit: Yes Status: Chronic (9) Presence of IVC filter Current Visit: Yes Status: Chronic (10) Cardiomyopathy Current Visit: Yes Status: Chronic (11) Hypokalemia Current Visit: Yes Status: Resolved (12) Nausea and vomiting Current Visit: Yes Status: Resolved Subjective Date of service: 07/27/20 Principal diagnosis: Atrial fibrillation with RVR, hypotension, UTI Interval history: pt resting in bed, states he is feeling better. tele reviewed - in AFib HR 80s - 100s overnight. Objective Last Vital Signs Temp 98.6 F 07/27/20 12:50 Pulse 56 L 07/27/20 12:50 Resp 16 07/27/20 12:50 BP 128/76 07/27/20 12:50 Pulse Ox 98 07/27/20 12:50 - Physical Examination General: No Apparent Distress HEENT: Positive: PERRL, Normocephaly, Mucus Membranes Moist Neck: Positive: neck supple, trachea midline Cardiac: Positive: irregularly irregular, S1/S2 Lungs: Positive: Decreased Breath Sounds Neuro: Positive: Grossly Intact Abdomen: Negative: Tender Skin: Negative: Rash Musculoskeletal: No Pain Extremities: Absent: edema - Labs and Meds Comprehensive Metabolic Panel 07/27/20 Range/Units 05:21 Sodium 138 (137-145) mmol/L Potassium 2.9 L* (3.6-5.0) mmol/L Chloride 102.5 (98-107) mmol/L Carbon Dioxide 22 (22-30) mmol/L BUN 16 (9-20) mg/dL Creatinine 1.3 (0.8-1.3) mg/dL Glucose 95 (75-100) mg/dL Calcium 8.4 (8.4-10.2) mg/dL - Imaging and Cardiology EKG: report reviewed, image reviewed Echo: report reviewed (EF 45-50%, impaired relaxation. ) - Telemetry EKG Rhythm: Atrial Fibrillation - Allied health notes Allied health notes reviewed: nursing
--- NOTE | 2020-07-27 13:23 | Progress Note ---
Assessment and Plan - Patient Problems (1) JESSIKA (acute kidney injury) Current Visit: Yes Status: Acute Plan to address problem: Patient renal function has improved initial acute on chronic kidney disease BUN 49 a 3.5 and since renal function has normalized with a creatinine of 1.3. Renal ultrasound showed no medical renal disease. There is no indication for hemodialysis. (2) AMS (altered mental status) Current Visit: Yes Status: Resolved Plan to address problem: Resolved. Patient is alert doing okay denies pain. Alert and oriented x3. (3) Acute on chronic renal failure Current Visit: Yes Status: Resolved Plan to address problem: Resolved (4) Atrial fibrillation with rapid ventricular response Current Visit: Yes Status: Acute Plan to address problem: Patient was weaned off cardene drip Patient experienced several episodes of bradycardia therefore amiodarone was decreased to 200 mg and Lopressor was increased. Patient is started on Eliquis today 5 mg twice daily Patient remains regula rate well controlled. Echocardiogram showed ejection fraction of 40 to 45%, diastolic dysfunction (5) Hypotension Current Visit: Yes Status: Acute Qualifiers: Hypotension type: unspecified hypotension type Qualified Code(s): I95.9 - Hypotension, unspecified Plan to address problem: Continue Midodrin (6) Sepsis Current Visit: Yes Status: Suspected Plan to address problem: epsis and differential diagnosis Patient is hypotensive. Currently stable Patient has UTI with white blood cells of 110 in the urine Continue with IV ceftriaxone Urine grew Proteus which was pansensitive. Treated with Rocephin. Resolved. Sepsis been treated. Resolved. (7) UTI (urinary tract infection) Current Visit: Yes Status: Acute Plan to address problem: Treated with Rocephin. No need for p.o. antibiotics at this time. (8) Hypokalemia Current Visit: Yes Status: Acute Plan to address problem: Hypokalemia 2.9. Will correct today follow-up magnesium and potassium if normal in a.m. should be able to discharge. (9) Hypokalemia Current Visit: Yes Status: Acute Subjective Date of service: 07/27/20 Principal diagnosis: Atrial fibrillation with RVR, hypotension, UTI Interval history: Assessment and plan: 60-year-old male with history of hypertension and cerebrovascular accident in the past brought in by EMS with a chief complaint of altered mental status. Per EMS the patient was behaving like his normal self approximately 45 minutes prior to arrival. 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 Per EMS the patient was in A. fib with RVR. EMS states that they were unable to obtain a blood pressure. Attempted cardioversion x2 at 50 J unsuccessfully. Today the patient is alert no pain state she is doing ok. Patient is up alert eating responsive without pain. Hospital course complicated today by hypokalemia. Objective - Constitutional Vitals: Vital Signs - 12hr 07/27/20 07/27/20 07/27/20 04:00 04:25 08:00 Temperature 98.4 F Pulse Rate 100 H 43 L 88 Respiratory 20 Rate Blood Pressure 111/73 Blood Pressure [Left] O2 Sat by Pulse 98 Oximetry 07/27/20 07/27/20 07/27/20 08:13 09:03 12:50 Temperature 97.6 F 98.6 F Pulse Rate 49 L 49 L 56 L Respiratory 16 16 Rate Blood Pressure 127/76 127/76 Blood Pressure 128/76 [Left] O2 Sat by Pulse 97 98 Oximetry 07/27/20 13:15 Temperature Pulse Rate 56 L Respiratory Rate Blood Pressure 128/76 Blood Pressure [Left] O2 Sat by Pulse Oximetry General appearance: Present: no acute distress, well-nourished - EENT Eyes: PERRL, EOM intact ENT: hearing intact, clear oral mucosa Ears: bilateral: normal - Neck Neck: supple, normal ROM - Respiratory Respiratory effort: normal Respiratory: bilateral: CTA - Breasts Breasts: normal - Cardiovascular Rhythm: regularly irregular Heart Sounds: Present: S1 & S2. Absent: gallop, rub Extremities: pulses intact, No edema, normal color, Full ROM Extremity abnormal: edema (+1), other - Gastrointestinal General gastrointestinal: Present: soft, non-tender, non-distended, normal bowel sounds - Genitourinary Male genitourinary: normal - Integumentary Integumentary: clear, warm, dry - Musculoskeletal Musculoskeletal: 1, strength equal bilaterally - Neurologic Neurologic: moves all extremities - Psychiatric Psychiatric: memory intact, appropriate mood/affect, intact judgment & insight - Labs CBC & Chem 7: 07/20/20 03:40 07/27/20 05:21 Labs: Abnormal lab results 07/27/20 Range/Units 05:21 Potassium 2.9 L* (3.6-5.0) mmol/L HEART Score - HEART Score Age: 45-65 Risk factors: 1-2 risk factors Troponin: Troponin T 0.024 ng/mL (0.00-0.029) 07/19/20 13:48 Troponin: 1-3x normal limit - Critical Actions Critical Actions: 4-6 pts:12-16.6% risk of adverse cardiac event. Should be admitted
--- NOTE | 2020-07-27 16:37 | Progress Note ---
Assessment and Plan Patient alert, awake and resting on room air. No acute respiratory distress. O2 saturation 98%. No complaint of chest pain, cough or shortness of breath. Patient afebrile. No leukocytosis. Chest xray done on 07/19/20 reported No acute findings. - Patient Problems (1) AMS (altered mental status) Current Visit: Yes Status: Resolved Plan to address problem: Management as per primary care. (2) Acute on chronic renal failure Current Visit: Yes Status: Resolved Plan to address problem: Management as per nephrology. (3) Atrial fibrillation with rapid ventricular response Current Visit: Yes Status: Acute Plan to address problem: Patient is on Apixaban. Management as per cardiology. (4) Hypotension Current Visit: Yes Status: Acute Qualifiers: Hypotension type: unspecified hypotension type Qualified Code(s): I95.9 - Hypotension, unspecified Plan to address problem: Improved. Patient is on Midodrine and I/v Fluids. (5) Syncope Current Visit: Yes Status: Acute Plan to address problem: Patient alert, awake at this time. Management as per Neurology and primary care. (6) UTI (urinary tract infection) Current Visit: Yes Status: Acute Plan to address problem: Patient was treated with ceftriaxone. (7) History of CVA (cerebrovascular accident) Current Visit: Yes Status: Chronic Plan to address problem: Management as per neurology and primary care. Subjective Date of service: 07/27/20 Principal diagnosis: Atrial fibrillation with RVR, hypotension, UTI Interval history: Patient alert, awake and resting on room air. No acute respiratory distress. O2 saturation 98%. No complaint of chest pain, cough or shortness of breath. Patient afebrile. No leukocytosis. Chest xray done on 07/19/20 reported No acute findings. Objective Vital Signs - 12hr 07/27/20 07/27/20 07/27/20 08:00 08:13 09:03 Temperature 97.6 F Pulse Rate 88 49 L 49 L Respiratory 16 Rate Blood Pressure 127/76 127/76 Blood Pressure [Left] O2 Sat by Pulse 97 Oximetry 07/27/20 07/27/20 07/27/20 12:50 13:15 16:15 Temperature 98.6 F 97.8 F Pulse Rate 56 L 56 L 63 Respiratory 16 16 Rate Blood Pressure 128/76 111/82 Blood Pressure 128/76 [Left] O2 Sat by Pulse 98 98 Oximetry Constitutional: no acute distress, alert Eyes: non-icteric ENT: oropharynx moist Neck: supple, no lymphadenopathy Effort: normal Ascultation: Bilateral: clear Cardiovascular: regular rate and rhythm, other (S1,S2) Gastrointestinal: normoactive bowel sounds, soft, non-tender Integumentary: other (Hyperpigmentation on left side of face.) Extremities: no cyanosis, no edema, other (left hand deformities with contractur) Neurologic: normal mental status, non-focal exam, pupils equal and round, motor strength normal and Psychiatric: mood appropriate, affect normal CBC and BMP: 07/20/20 03:40 07/27/20 05:21 ABG, PT/INR, D-dimer: PT/INR, D-dimer PT 18.5 Sec. (12.2-14.9) H 07/19/20 13:48 INR 1.51 (0.87-1.13) H 07/19/20 13:48 Abnormal lab findings: Abnormal Labs 07/19/20 07/19/20 07/19/20 13:48 13:48 13:48 RDW 15.3 H Seg Neuts % (Manual) Lymphocytes % (Manual) Seg Neutrophils # Man Lymphocytes # (Manual) PT 18.5 H INR 1.51 H Sodium 148 H Potassium 2.9 L* Chloride Carbon Dioxide 11 L BUN 28 H Creatinine 2.5 H Glucose 197 H POC Glucose Magnesium 2.40 H AST ALT Total Creatine Kinase 280 H CK-MB (CK-2) 4.6 H NT-Pro-B Natriuret Pep 1008 H Total Protein Albumin 3.3 L TSH Urine WBC (Auto) Urine Creatinine Urine Total Protein 07/19/20 07/19/20 07/20/20 13:48 Unknown 03:40 RDW 15.9 H Seg Neuts % (Manual) 92.0 H Lymphocytes % (Manual) 3.0 L Seg Neutrophils # Man 9.8 H Lymphocytes # (Manual) 0.3 L PT INR Sodium Potassium Chloride Carbon Dioxide BUN Creatinine Glucose POC Glucose Magnesium AST ALT Total Creatine Kinase CK-MB (CK-2) NT-Pro-B Natriuret Pep Total Protein Albumin TSH 5.460 H Urine WBC (Auto) 110.0 H Urine Creatinine Urine Total Protein 07/20/20 07/20/20 07/20/20 03:40 Unknown Unknown RDW Seg Neuts % (Manual) Lymphocytes % (Manual) Seg Neutrophils # Man Lymphocytes # (Manual) PT INR Sodium 147 H Potassium Chloride Carbon Dioxide 19 L D BUN 49 H Creatinine 3.3 H Glucose 169 H POC Glucose Magnesium AST 133 H ALT 73 H Total Creatine Kinase CK-MB (CK-2) NT-Pro-B Natriuret Pep Total Protein Albumin 3.6 L TSH Urine WBC (Auto) Urine Creatinine 111.4 H 110.3 H Urine Total Protein 63 H 63 H 07/21/20 07/21/20 07/22/20 00:33 05:17 04:47 RDW Seg Neuts % (Manual) Lymphocytes % (Manual) Seg Neutrophils # Man Lymphocytes # (Manual) PT INR Sodium 149 H 149 H Potassium 3.1 L Chloride 111.4 H 109.6 H Carbon Dioxide 21 L BUN 66 H 70 H Creatinine 3.2 H 3.5 H Glucose 141 H 136 H POC Glucose 139 H Magnesium AST ALT Total Creatine Kinase CK-MB (CK-2) NT-Pro-B Natriuret Pep Total Protein Albumin TSH Urine WBC (Auto) Urine Creatinine Urine Total Protein 07/22/20 07/22/20 07/23/20 13:01 13:01 05:29 RDW Seg Neuts % (Manual) Lymphocytes % (Manual) Seg Neutrophils # Man Lymphocytes # (Manual) PT INR Sodium Potassium 3.4 L 3.3 L Chloride Carbon Dioxide 21 L BUN 72 H Creatinine 4.0 H Glucose 106 H POC Glucose Magnesium AST 58 H 68 H ALT 70 H 86 H Total Creatine Kinase CK-MB (CK-2) NT-Pro-B Natriuret Pep Total Protein 6.2 L Albumin 2.8 L 2.9 L TSH Urine WBC (Auto) Urine Creatinine Urine Total Protein 07/24/20 07/25/20 07/27/20 04:30 05:12 05:21 RDW Seg Neuts % (Manual) Lymphocytes % (Manual) Seg Neutrophils # Man Lymphocytes # (Manual) PT INR Sodium Potassium 3.4 L 3.2 L 2.9 L* Chloride Carbon Dioxide BUN 60 H 38 H Creatinine 2.8 H 1.7 H Glucose POC Glucose Magnesium AST 50 H ALT 79 H 63 H Total Creatine Kinase CK-MB (CK-2) NT-Pro-B Natriuret Pep Total Protein Albumin 3.0 L 3.1 L TSH Urine WBC (Auto) Urine Creatinine Urine Total Protein Allied health notes reviewed: nursing
[2020-07-27] MEDS: APIXABAN 5 MG TAB PO SCH (21:46)
[2020-07-28 07:11] LABS: BUN/Creatinine Ratio 11; Blood Urea Nitrogen 13 mg/dL (9-20); Calcium 8.7 mg/dL (8.4-10.2); Hemolysis Index 12
[2020-07-28 07:36] LABS: Basophils % (Auto) 0.4 % (0.0-1.8); Eosinophils # (Auto) 0.1 K/mm3 (0.0-0.4); Eosinophils % (Auto) 1.1 % (0.0-4.3); Hematocrit 33.8 % (35.5-45.6); Hemoglobin 11.2 gm/dl (11.8-15.2); Lymphocytes # (Auto) 1.9 K/mm3 (1.2-5.4); Mean Corpuscular HGB Conc 33 % (32-34); Mean Corpuscular Volume 88 fl (84-94); Monocytes # (Auto) 0.8 K/mm3 (0.0-0.8); Monocytes % (Auto) 7.9 % (0.0-7.3); Platelet Count 145 K/mm3 (140-440); Red Blood Count 3.86 M/mm3 (3.65-5.03); Red Cell Distribution Width 16.5 % (13.2-15.2)
[2020-07-28 07:57] LABS: BUN/Creatinine Ratio 11; Blood Urea Nitrogen 12 mg/dL (9-20); Calcium 8.6 mg/dL (8.4-10.2); Hemolysis Index 8
[2020-07-28] MEDS: APIXABAN 5 MG TAB PO SCH (09:55)
[2020-07-28] MEDS: FAMOTIDINE 20 MG TAB PO SCH (09:55)
[2020-07-28] MEDS: MIDODRINE 5 MG TAB PO SCH ×3 (09:55→16:34)
[2020-07-28] MEDS: METOPROLOL TARTRATE 25 MG TAB PO SCH ×2 (09:56→13:08)
--- NOTE | 2020-07-28 09:58 | Progress Note ---
Assessment and Plan Assessment and plan: JESSIKA (acute kidney injury) Patient renal function has improved initial acute on chronic kidney disease BUN 49 a 3.5 and since renal function has normalized with a creatinine of 1.3. Renal ultrasound showed no medical renal disease. There is no indication for hemodialysis. AMS (altered mental status) Resolved. Patient is alert doing okay denies pain. Alert and oriented x3. Acute on chronic renal failure Resolved Atrial fibrillation with rapid ventricular response Patient was weaned off cardene drip Patient experienced several episodes of bradycardia therefore amiodarone was decreased to 200 mg and Lopressor was increased. Eliquis 5 mg twice daily Rate well controlled. Echocardiogram showed ejection fraction of 40 to 45%, diastolic dysfunction Hypotension Continue Midodrin Sepsis Patient is hypotensive. Currently stable Patient has UTI with white blood cells of 110 in the urine Continue with IV ceftriaxone Urine grew Proteus which was pansensitive. Treated with Rocephin. Resolved. Sepsis been treated. Resolved. UTI (urinary tract infection) Treated with Rocephin. No need for p.o. antibiotics at this time. Hypokalemia Hypokalemia 2.9. Will correct today follow-up magnesium and potassium if normal in a.m. should be able to discharge. History Interval history: No new issues Hospitalist Physical - Constitutional Vitals: Temp Pulse Resp BP Pulse Ox 97.8 F 46 L 18 124/74 98 07/28/20 09:07 07/28/20 09:07 07/28/20 09:07 07/28/20 09:07 07/28/20 09:07 General appearance: Present: no acute distress, well-nourished - EENT Eyes: Present: PERRL, EOM intact ENT: hearing intact, clear oral mucosa, dentition normal - Neck Neck: Present: supple, normal ROM - Respiratory Respiratory effort: normal Respiratory: bilateral: CTA - Cardiovascular Rhythm: regular Heart Sounds: Present: S1 & S2. Absent: gallop, rub - Extremities Extremities: no ischemia, No edema, Full ROM - Abdominal General gastrointestinal: soft, non-tender, non-distended, normal bowel sounds - Integumentary Integumentary: Present: clear, warm, dry - Neurologic Neurologic: CNII-XII intact, moves all extremities HEART Score - HEART Score Age: 45-65 Risk factors: 1-2 risk factors Troponin: Troponin T 0.024 ng/mL (0.00-0.029) 07/19/20 13:48 Troponin: 1-3x normal limit - Critical Actions Critical Actions: 4-6 pts:12-16.6% risk of adverse cardiac event. Should be admitted Results - Labs CBC & Chem 7: 07/28/20 06:52 07/28/20 06:52 Labs: Laboratory Last Values WBC 10.0 K/mm3 (4.5-11.0) 07/28/20 06:52 RBC 3.86 M/mm3 (3.65-5.03) 07/28/20 06:52 Hgb 11.2 gm/dl (11.8-15.2) L 07/28/20 06:52 Hct 33.8 % (35.5-45.6) L 07/28/20 06:52 MCV 88 fl (84-94) 07/28/20 06:52 MCH 29 pg (28-32) 07/28/20 06:52 MCHC 33 % (32-34) 07/28/20 06:52 RDW 16.5 % (13.2-15.2) H 07/28/20 06:52 Plt Count 145 K/mm3 (140-440) 07/28/20 06:52 Lymph % (Auto) 19.0 % (13.4-35.0) 07/28/20 06:52 [place] % (Auto) 7.9 % (0.0-7.3) H 07/28/20 06:52 Eos % (Auto) 1.1 % (0.0-4.3) 07/28/20 06:52 Baso % (Auto) 0.4 % (0.0-1.8) 07/28/20 06:52 Lymph # (Auto) 1.9 K/mm3 (1.2-5.4) 07/28/20 06:52 [place] # (Auto) 0.8 K/mm3 (0.0-0.8) 07/28/20 06:52 Eos # (Auto) 0.1 K/mm3 (0.0-0.4) 07/28/20 06:52 Baso # (Auto) 0.0 K/mm3 (0.0-0.1) 07/28/20 06:52 Add Manual Diff Complete 07/20/20 03:40 Total Counted 100 07/20/20 03:40 Seg Neutrophils % 71.6 % (40.0-70.0) H 07/28/20 06:52 Seg Neuts % (Manual) 92.0 % (40.0-70.0) H 07/20/20 03:40 Band Neutrophils % 0 % 07/20/20 03:40 Lymphocytes % (Manual) 3.0 % (13.4-35.0) L 07/20/20 03:40 Reactive Lymphs % (Man) 0 % 07/20/20 03:40 Monocytes % (Manual) 5.0 % (0.0-7.3) 07/20/20 03:40 Eosinophils % (Manual) 0 % (0.0-4.3) 07/20/20 03:40 Basophils % (Manual) 0 % (0.0-1.8) 07/20/20 03:40 Metamyelocytes % 0 % 07/20/20 03:40 Myelocytes % 0 % 07/20/20 03:40 Promyelocytes % 0 % 07/20/20 03:40 Blast Cells % 0 % 07/20/20 03:40 Nucleated RBC % Not Reportable 07/20/20 03:40 Seg Neutrophils # 7.2 K/mm3 (1.8-7.7) 07/28/20 06:52 Seg Neutrophils # Man 9.8 K/mm3 (1.8-7.7) H 07/20/20 03:40 Band Neutrophils # 0.0 K/mm3 07/20/20 03:40 Lymphocytes # (Manual) 0.3 K/mm3 (1.2-5.4) L 07/20/20 03:40 Abs React Lymphs (Man) 0.0 K/mm3 07/20/20 03:40 Monocytes # (Manual) 0.5 K/mm3 (0.0-0.8) 07/20/20 03:40 Eosinophils # (Manual) 0.0 K/mm3 (0.0-0.4) 07/20/20 03:40 Basophils # (Manual) 0.0 K/mm3 (0.0-0.1) 07/20/20 03:40 Metamyelocytes # 0.0 K/mm3 07/20/20 03:40 Myelocytes # 0.0 K/mm3 07/20/20 03:40 Promyelocytes # 0.0 K/mm3 07/20/20 03:40 Blast Cells # 0.0 K/mm3 07/20/20 03:40 WBC Morphology Not Reportable 07/20/20 03:40 Hypersegmented Neuts Not Reportable 07/20/20 03:40 Hyposegmented Neuts Not Reportable 07/20/20 03:40 Hypogranular Neuts Not Reportable 07/20/20 03:40 Smudge Cells Not Reportable 07/20/20 03:40 Toxic Granulation Not Reportable 07/20/20 03:40 Toxic Vacuolation Not Reportable 07/20/20 03:40 Dohle Bodies Not Reportable 07/20/20 03:40 Pelger-Huet Anomaly Not Reportable 07/20/20 03:40 Lilliam Rods Not Reportable 07/20/20 03:40 Platelet Estimate Consistent w auto 07/20/20 03:40 Clumped Platelets Not Reportable 07/20/20 03:40 Plt Clumps, EDTA Not Reportable 07/20/20 03:40 Large Platelets Not Reportable 07/20/20 03:40 Giant Platelets Not Reportable 07/20/20 03:40 Platelet Satelliting Not Reportable 07/20/20 03:40 Plt Morphology Comment Not Reportable 07/20/20 03:40 RBC Morphology Not Reportable 07/20/20 03:40 Dimorphic RBCs Not Reportable 07/20/20 03:40 Polychromasia Not Reportable 07/20/20 03:40 Hypochromasia Not Reportable 07/20/20 03:40 Poikilocytosis Not Reportable 07/20/20 03:40 Anisocytosis 1+ 07/20/20 03:40 Microcytosis Not Reportable 07/20/20 03:40 Macrocytosis Not Reportable 07/20/20 03:40 Spherocytes Not Reportable 07/20/20 03:40 Pappenheimer Bodies Not Reportable 07/20/20 03:40 Sickle Cells Not Reportable 07/20/20 03:40 Target Cells Not Reportable 07/20/20 03:40 Tear Drop Cells Not Reportable 07/20/20 03:40 Ovalocytes Not Reportable 07/20/20 03:40 Helmet Cells Not Reportable 07/20/20 03:40 [place] Bodies Not Reportable 07/20/20 03:40 [place] Rings Not Reportable 07/20/20 03:40 [place] Cells Not Reportable 07/20/20 03:40 Bite Cells Not Reportable 07/20/20 03:40 Crenated Cell Not Reportable 07/20/20 03:40 Elliptocytes Not Reportable 07/20/20 03:40 Acanthocytes (Spur) Not Reportable 07/20/20 03:40 Rouleaux Not Reportable 07/20/20 03:40 Hemoglobin C Crystals Not Reportable 07/20/20 03:40 Schistocytes Not Reportable 07/20/20 03:40 Malaria parasites Not Reportable 07/20/20 03:40 Philipp Bodies Not Reportable 07/20/20 03:40 Hem Pathologist Commnt No 07/20/20 03:40 PT 18.5 Sec. (12.2-14.9) H 07/19/20 13:48 INR 1.51 (0.87-1.13) H 07/19/20 13:48 APTT 32.6 Sec. (24.2-36.6) 07/19/20 13:48 Sodium 140 mmol/L (137-145) 07/28/20 06:52 Potassium 3.5 mmol/L (3.6-5.0) L 07/28/20 06:52 Chloride 104.2 mmol/L (98-107) 07/28/20 06:52 Carbon Dioxide 20 mmol/L (22-30) L 07/28/20 06:52 Anion Gap 19 mmol/L 07/28/20 06:52 BUN 12 mg/dL (9-20) 07/28/20 06:52 Creatinine 1.1 mg/dL (0.8-1.3) 07/28/20 06:52 Estimated GFR > 60 ml/min 07/28/20 06:52 BUN/Creatinine Ratio 11 % 07/28/20 06:52 Glucose 93 mg/dL (75-100) 07/28/20 06:52 POC Glucose 96 (70-105) 07/23/20 22:03 Hemoglobin A1c 5.7 % (4-6) 07/20/20 03:40 Calcium 8.6 mg/dL (8.4-10.2) 07/28/20 06:52 Phosphorus 4.00 mg/dL (2.5-4.5) 07/21/20 05:17 Magnesium 1.60 mg/dL (1.7-2.3) L 07/28/20 04:24 Total Bilirubin 0.50 mg/dL (0.1-1.2) 07/25/20 05:12 Direct Bilirubin < 0.2 mg/dL (0-0.2) 07/22/20 13:01 Indirect Bilirubin 0.1 mg/dL 07/22/20 13:01 AST 33 units/L (5-40) 07/25/20 05:12 ALT 63 units/L (7-56) H 07/25/20 05:12 Alkaline Phosphatase 71 units/L (35-129) 07/25/20 05:12 Total Creatine Kinase 280 units/L (55-170) H 07/19/20 13:48 CK-MB (CK-2) 4.6 ng/mL (0.0-4.0) H 07/19/20 13:48 CK-MB (CK-2) Rel Index 1.6 (0-4) 07/19/20 13:48 Troponin T 0.024 ng/mL (0.00-0.029) 07/19/20 13:48 NT-Pro-B Natriuret Pep 1008 pg/mL (0-900) H 07/19/20 13:48 Total Protein 6.4 g/dL (6.3-8.2) 07/25/20 05:12 Albumin 3.1 g/dL (3.9-5) L 07/25/20 05:12 Albumin/Globulin Ratio 0.9 % 07/25/20 05:12 Lipase 23 units/L (13-60) 07/23/20 05:29 TSH 5.460 mlU/mL (0.270-4.200) H 07/19/20 13:48 Free T4 1.17 ng/dL (0.76-1.46) 07/19/20 13:48 Urine Color Mylene (Yellow) 07/19/20 Unknown Urine Turbidity Cloudy (Clear) 07/19/20 Unknown Urine pH 7.0 (5.0-7.0) 07/19/20 Unknown Ur Specific [place] 1.017 (1.003-1.030) 07/19/20 Unknown Urine Protein 100 mg/dl mg/dL (Negative) 07/19/20 Unknown Urine Glucose (UA) Neg mg/dL (Negative) 07/19/20 Unknown Urine Ketones Neg mg/dL (Negative) 07/19/20 Unknown Urine Blood Lg (Negative) 07/19/20 Unknown Urine Nitrite Neg (Negative) 07/19/20 Unknown Urine Bilirubin Neg (Negative) 07/19/20 Unknown Urine Urobilinogen < 2.0 mg/dL (<2.0) 07/19/20 Unknown Ur Leukocyte Esterase Lg (Negative) 07/19/20 Unknown Urine WBC (Auto) 110.0 /HPF (0.0-6.0) H 07/19/20 Unknown Urine RBC (Auto) 68.0 /HPF (0.0-6.0) 07/19/20 Unknown U Epithel Cells (Auto) 1.0 /HPF (0-13.0) 07/19/20 Unknown Urine Bacteria (Auto) 4+ /HPF (Negative) 07/19/20 Unknown Urine Mucus Few /HPF 07/19/20 Unknown Urine Eosinophils None seen (None Seen) 07/20/20 Unknown Urine Creatinine 110.3 mg/dL (0.1-20.0) H 07/20/20 Unknown Urine Creatinine 111.4 mg/dL (0.1-20.0) H 07/20/20 Unknown Protein/Creatinin Ratio 0.57 07/20/20 Unknown Urine Sodium 41 mmol/L 07/20/20 Unknown Urine Total Protein 63 mg/dL (5-11.8) H 07/20/20 Unknown Urine Total Protein 63 mg/dL (5-11.8) H 07/20/20 Unknown Plasma/Serum Alcohol < 0.01 % (0-0.07) 07/19/20 13:48 C. difficile Tox (PCR) Negative (Negative) 07/22/20 16:36 Hepatitis A IgM Ab Non-reactive (NonReactive) 07/22/20 13:01 Hep Bs Antigen Non-reactive (Negative) 07/22/20 13:01 Hep B Core IgM Ab Non-reactive (NonReactive) 07/22/20 13:01 Hepatitis C Antibody Non-reactive (NonReactive) 07/22/20 13:01 - Diagnostic Impressions Diagnostic Impressions: Echocardiogram 07/20/20 09:12 Transthoracic Echocardiogram Indication: SOB BP: 101/77 Conclusions *The study is technically limited due to poor parasternal windows. *The study quality is technically difficult. Patient heart rate is iiregularly irregular,making interpretaion difficult. *The estimated ejection fraction is 45-50%. *Abnormal left ventricular diastolic filling is observed, consistent with impaired relaxation. *The right ventricular cavity size is normal. *The mitral valve leaflets are mildly thickened. *The right ventricular systolic pressure is calculated at 19 mmHg. Findings Procedure Info: The study quality is technically difficult. The study is technically limited due to poor parasternal windows. Left Ventricle: The estimated ejection fraction is 45-50%. Abnormal septal motion noted. Abnormal left ventricular diastolic filling is observed, consistent with impaired relaxation. Left Atrium: The left atrial chamber size is normal. Right Ventricle: The right ventricular cavity size is normal. Right Atrium: The right atrial cavity size is normal. Aortic Valve: The aortic valve leaflets are mildly thickened. There is trace of aortic regurgitation. Mitral Valve: The mitral valve leaflets are mildly thickened. Tricuspid Valve: The tricuspid valve leaflets are normal. There is trace tricuspid regurgitation. The right ventricular systolic pressure is calculated at 19 mmHg. Pericardium: There is no pericardial effusion. Measurements Volumes/Mass Name Value Normal Range LA ESV SP 4CH (A/L) 24.56 ml - LA ESV SP 2CH (A/L) 24.96 ml - LA ESV BP (A/L) 25.22 ml - LA ESV BP (A/L) index 13.27 ml/m2 - LA ESV SP 4CH (MOD) 22.25 ml - LA ESV SP 2CH (MOD) 24.68 ml - LA ESV BP (MOD) 23.72 ml - LA ESV BP (MOD) index 12.48 ml/m2 - Diastolic/Systolic Function Name Value Normal Range MV E-wave Vmax 0.36 m/sec - MV deceleration time 245.25 msec - MV A-wave Vmax 0.62 m/sec - MV E:A ratio 0.58 ratio - Aortic Valve Name Value Normal Range AV Vmax 1.35 m/sec - AV VTI 20.3 cm - AV peak gradient 7.33 mmHg - AV mean gradient 4.5 mmHg - LVOT Vmax 1.1 m/sec - LVOT VTI 15.68 cm - LVOT peak gradient 4.97 mmHg - LVOT mean gradient 2.72 mmHg - Tricuspid Valve Name Value Normal Range TR Vmax 2 m/sec - TR peak gradient 16 mmHg - RAP 3 mmHg - RVSP 19 mmHg - Tineo/IV: Voiding Method Condom Catheter IV Catheter Type [Right CVL Femoral] IV Catheter Type [Right Hand] INT / Saline Lock IV Catheter Type [Right Peripheral IV Forearm] Active Medications - Current Medications Current Medications: Generic Name Dose Route Start Last Admin Trade Name Freq PRN Reason Stop Dose Admin Acetaminophen 650 mg 07/19/20 22:45 07/26/20 21:44 Tylenol PO 650 mg Q4H PRN Administration Pain MILD(1-3)/Fever >100.5/HAZEL Amiodarone HCl 200 mg 07/28/20 10:00 Cordarone PO DAILY EUNICE Apixaban 5 mg 07/27/20 22:00 07/27/20 21:46 Eliquis PO 5 mg Q12HR EUNICE Administration Protocol Famotidine 20 mg 07/21/20 11:00 07/27/20 09:04 Pepcid PO 20 mg QAM EUNICE Administration Sodium Chloride 1,000 mls @ 75 mls/hr 07/22/20 12:00 07/27/20 21:46 Nacl 0.45% 1000 Ml IV 75 mls/hr DIRECT EUNICE Administration Magnesium Sulfate 2 gm in 50 mls @ 25 mls/hr 07/28/20 10:00 Magnesium Sulfate 2gm/50ml IV 07/28/20 11:59 ONCE ONE Metoclopramide HCl 5 mg 07/19/20 22:45 07/22/20 18:03 Reglan IV 5 mg Q6H PRN Administration Nausea And Vomiting Metoprolol Tartrate 25 mg 07/27/20 14:00 07/27/20 21:51 Metoprolol PO Not Given TID EUNICE Midodrine 5 mg 07/22/20 12:00 07/27/20 17:38 Proamatine PO 5 mg TID@0800,1200,1600 EUNICE Administration Morphine Sulfate 2 mg 07/19/20 22:45 07/20/20 11:45 Morphine IV 2 mg Q4H PRN Administration Pain, Moderate (4-6) Morphine Sulfate 4 mg 07/19/20 22:45 Morphine IV Q4H PRN Pain , Severe (7-10) Ondansetron HCl 4 mg 07/19/20 22:45 07/24/20 11:41 Zofran IV 4 mg Q8H PRN Administration Nausea And Vomiting Potassium Chloride 40 meq 07/28/20 10:00 K-Dur PO 07/28/20 10:01 ONCE ONE Sodium Chloride 10 ml 07/20/20 10:00 07/27/20 21:46 Sodium Chloride Flush Syringe 10 Ml IV 10 ml BID EUNICE Administration Sodium Chloride 10 ml 07/19/20 22:45 07/22/20 01:04 Sodium Chloride Flush Syringe 10 Ml IV 10 ml PRN PRN Administration LINE FLUSH Nutrition/Malnutrition Assess - Dietary Evaluation Nutrition/Malnutrition Findings: Nutrition Notes Start: 07/27/20 11:57 Freq: Status: Active Protocol: Document 07/27/20 11:57 LM (Rec: 07/27/20 11:58 LM [id number]) Nutrition Notes Need for Assessment generated from: LOS Initial or Follow up Brief Note Subjective/Other Information Screen for LOS. Pt stated he ate 100% of his breakfast and was eating well [employer]. Pt denied any wt loss. Nutrition Intervention Revisit per MD consult or patient Sign Off request:
[2020-07-28] MEDS ORDERED: MAGNESIUM SULFATE 2 GM/50 ML BAG IV ONE (10:00)
[2020-07-28] MEDS ORDERED: POTASSIUM CHLORIDE ER 20 MEQ TAB PO ONE (10:00)
[2020-07-28] MEDS ORDERED: AMIODARONE 200 MG TAB PO SCH (10:00)
--- NOTE | 2020-07-28 10:25 | Discharge Summary ---
Providers - Providers Date of Admission: 07/19/20 18:39 Date of discharge: 07/28/20 Attending physician: YAYA LAU 07/19/20 23:00 Consult to Physician [CONS] Routine Comment: Consulting Provider: CHARLOTTE ONOFRE Physician Instructions: Reason For Exam: Septic shock, atrial fibrillation with RVR 07/20/20 09:06 Consult to Physician [CONS] Routine Comment: Consulting Provider: AMADOR DEE Physician Instructions: Reason For Exam: A. 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 Per EMS the patient was behaving like his normal self approximately 45 minutes prior to arrival. The patient's shift superintendent caustic cresylate found the patient unresponsive and slumped over in the bathroom on the toilet. Per EMS the patient was in A. fib with RVR. EMS states that they were unable to obtain a blood pressure. They attempted to cardiovert the patient x2 at 50 J unsuccessfully. The patient did not respond to verbal or tactile stimuli. Patient later responded and returned back to his baseline mental status. The patient was admitted with diagnosis of sepsis with UTI, A. fib with RVR, toxic metabolic encephalopathy and hypokalemia. The patient was seen by nephrology and cardiology in consultation. With regards to the sepsis/UTI patient was treated with IV antibiotics and resolved. Urine culture revealed Proteus mirabilis which was pansensitive. Cardiology evaluated the patient for a few with RVR and started amiodarone drip which was later transitioned to p.o. amiodarone 200 mg daily and Lopressor. Patient remained hypotensive but sepsis resolved. Patient was treated with midodrine with blood pressure stabilizing. Pt does not appear to have been taking OAC at home for unknown reasons. Cardiology felt the pt would benefit from termination clerk systemic AC and there do not appear to be any contraindications to OAC. Cardiology initiated Eliquis 5mg BID. Dedicated discharge time 35 minutes. Disposition: DC-01 TO HOME OR SELFCARE Time spent for discharge: 35 - Discharge Diagnoses (1) Toxic metabolic encephalopathy Status: Acute (2) JESSIKA (acute kidney injury) Status: Acute (3) Atrial fibrillation with rapid ventricular response Status: Acute (4) Hypotension Status: Acute Qualifiers: Hypotension type: unspecified hypotension type Qualified Code(s): I95.9 - Hypotension, unspecified (5) UTI (urinary tract infection) Status: Acute (6) Cardiomyopathy Status: Chronic (7) History of CVA (cerebrovascular accident) Status: Chronic (8) Sepsis Status: Suspected Core Measure Documentation - Palliative Care Palliative Care/ Comfort Measures: Not Applicable - Core Measures Any of the following diagnoses?: none Exam - Constitutional Vitals: Temp Pulse Resp BP Pulse Ox 97.8 F 46 L 18 124/74 98 07/28/20 09:07 07/28/20 09:56 07/28/20 09:07 07/28/20 09:56 07/28/20 09:07 General appearance: Present: no acute distress, well-nourished - EENT Eyes: Present: PERRL ENT: hearing intact, clear oral mucosa - Neck Neck: Present: supple, normal ROM - Respiratory Respiratory effort: normal Respiratory: bilateral: CTA - Cardiovascular Heart Sounds: Present: S1 & S2. Absent: rub, click - Extremities Extremities: pulses symmetrical, No edema Peripheral Pulses: within normal limits - Abdominal General gastrointestinal: Present: soft, non-tender, non-distended, normal bowel sounds Male genitourinary: Present: normal - Integumentary Integumentary: Present: clear, warm, dry - Musculoskeletal Musculoskeletal: gait normal, strength equal bilaterally - Psychiatric Psychiatric: appropriate mood/affect, intact judgment & insight - Neurologic Neurologic: CNII-XII intact, moves all extremities Plan Activity: advance as tolerated Weight Bearing Status: Weight Bear as Tolerated Diet: regular Follow up with: PRIMARY MD KANNAN [Primary Care Provider] - 3-5 Days PK ESQUIVEL MD [Staff Physician] - 7 Days SUNDEEP RUIZ MD [Staff Physician] - 7 Days CHAITANYA MANN MD [Staff Physician] - 7 Days Prescriptions: Amiodarone [Cordarone 200 MG TAB] 200 mg PO DAILY #30 tablet Apixaban [Eliquis] 5 mg PO Q12HR #60 tablet Metoprolol [Lopressor TAB] 25 mg PO TID #90 tablet Famotidine [Pepcid] 20 mg PO QAM #30 tablet Midodrine [Proamatine] 5 mg PO TID@0800,1200,1600 #90 tablet
--- NOTE | 2020-07-28 10:44 | Progress Note ---
Assessment and Plan Patient alert, awake and resting on room air. No acute respiratory distress. O2 saturation 98%. No complaint of chest pain, cough or shortness of breath. Patient afebrile. No leukocytosis. Chest xray done on 07/19/20 reported No acute findings. Patient stable from pulmonary point of view. - Patient Problems (1) AMS (altered mental status) Current Visit: Yes Status: Resolved Plan to address problem: Management as per primary care. (2) Acute on chronic renal failure Current Visit: Yes Status: Resolved Plan to address problem: Management as per nephrology. (3) Atrial fibrillation with rapid ventricular response Current Visit: Yes Status: Acute Plan to address problem: Patient is on Apixaban. Management as per cardiology. (4) Hypotension Current Visit: Yes Status: Acute Qualifiers: Hypotension type: unspecified hypotension type Qualified Code(s): I95.9 - Hypotension, unspecified Plan to address problem: Improved. 124/74 Patient is on Midodrine and I/v Fluids. (5) Syncope Current Visit: Yes Status: Acute Plan to address problem: Patient alert, awake at this time. Management as per Neurology and primary care. (6) UTI (urinary tract infection) Current Visit: Yes Status: Acute Plan to address problem: Patient was treated with ceftriaxone. (7) History of CVA (cerebrovascular accident) Current Visit: Yes Status: Chronic Plan to address problem: Management as per neurology and primary care. Subjective Date of service: 07/28/20 Principal diagnosis: Atrial fibrillation with RVR, hypotension, UTI Interval history: Patient alert, awake and resting on room air. No acute respiratory distress. O2 saturation 98%. No complaint of chest pain, cough or shortness of breath. Patient afebrile. No leukocytosis. Chest xray done on 07/19/20 reported No acute findings. Patient stable from pulmonary point of view. Objective Vital Signs - 12hr 07/27/20 07/28/20 07/28/20 22:56 03:12 09:07 Temperature 98.7 F 98.5 F 97.8 F Pulse Rate 72 47 L 46 L Respiratory 16 18 18 Rate Blood Pressure 129/88 138/80 124/74 O2 Sat by Pulse 98 99 98 Oximetry 07/28/20 09:56 Temperature Pulse Rate 46 L Respiratory Rate Blood Pressure 124/74 O2 Sat by Pulse Oximetry Constitutional: no acute distress, alert Eyes: non-icteric ENT: oropharynx moist Neck: supple, no lymphadenopathy Effort: normal Ascultation: Bilateral: clear Cardiovascular: regular rate and rhythm, other (S1,S2) Gastrointestinal: normoactive bowel sounds, soft, non-tender Integumentary: other (Hyperpigmentation on left side of face.) Extremities: no cyanosis, no edema, other (left hand deformities with contractur) Neurologic: normal mental status, non-focal exam, pupils equal and round, motor strength normal and Psychiatric: mood appropriate, affect normal CBC and BMP: 07/28/20 06:52 07/28/20 06:52 ABG, PT/INR, D-dimer: PT/INR, D-dimer PT 18.5 Sec. (12.2-14.9) H 07/19/20 13:48 INR 1.51 (0.87-1.13) H 07/19/20 13:48 Abnormal lab findings: Abnormal Labs 07/19/20 07/19/20 07/19/20 13:48 13:48 13:48 Hgb Hct RDW 15.3 H [place] % (Auto) Seg Neutrophils % Seg Neuts % (Manual) Lymphocytes % (Manual) Seg Neutrophils # Man Lymphocytes # (Manual) PT 18.5 H INR 1.51 H Sodium 148 H Potassium 2.9 L* Chloride Carbon Dioxide 11 L BUN 28 H Creatinine 2.5 H Glucose 197 H POC Glucose Magnesium 2.40 H AST ALT Total Creatine Kinase 280 H CK-MB (CK-2) 4.6 H NT-Pro-B Natriuret Pep 1008 H Total Protein Albumin 3.3 L TSH Urine WBC (Auto) Urine Creatinine Urine Total Protein 07/19/20 07/19/20 07/20/20 13:48 Unknown 03:40 Hgb Hct RDW 15.9 H [place] % (Auto) Seg Neutrophils % Seg Neuts % (Manual) 92.0 H Lymphocytes % (Manual) 3.0 L Seg Neutrophils # Man 9.8 H Lymphocytes # (Manual) 0.3 L PT INR Sodium Potassium Chloride Carbon Dioxide BUN Creatinine Glucose POC Glucose Magnesium AST ALT Total Creatine Kinase CK-MB (CK-2) NT-Pro-B Natriuret Pep Total Protein Albumin TSH 5.460 H Urine WBC (Auto) 110.0 H Urine Creatinine Urine Total Protein 10/03/0407/20/20 07/20/20 03:40 Unknown Unknown Hgb Hct RDW [place] % (Auto) Seg Neutrophils % Seg Neuts % (Manual) Lymphocytes % (Manual) Seg Neutrophils # Man Lymphocytes # (Manual) PT INR Sodium 147 H Potassium Chloride Carbon Dioxide 19 L D BUN 49 H Creatinine 3.3 H Glucose 169 H POC Glucose Magnesium AST 133 H ALT 73 H Total Creatine Kinase CK-MB (CK-2) NT-Pro-B Natriuret Pep Total Protein Albumin 3.6 L TSH Urine WBC (Auto) Urine Creatinine 111.4 H 110.3 H Urine Total Protein 63 H 63 H 07/21/20 07/21/20 07/22/20 00:33 05:17 04:47 Hgb Hct RDW [place] % (Auto) Seg Neutrophils % Seg Neuts % (Manual) Lymphocytes % (Manual) Seg Neutrophils # Man Lymphocytes # (Manual) PT INR Sodium 149 H 149 H Potassium 3.1 L Chloride 111.4 H 109.6 H Carbon Dioxide 21 L BUN 66 H 70 H Creatinine 3.2 H 3.5 H Glucose 141 H 136 H POC Glucose 139 H Magnesium AST ALT Total Creatine Kinase CK-MB (CK-2) NT-Pro-B Natriuret Pep Total Protein Albumin TSH Urine WBC (Auto) Urine Creatinine Urine Total Protein 07/22/20 07/22/20 07/23/20 13:01 13:01 05:29 Hgb Hct RDW [place] % (Auto) Seg Neutrophils % Seg Neuts % (Manual) Lymphocytes % (Manual) Seg Neutrophils # Man Lymphocytes # (Manual) PT INR Sodium Potassium 3.4 L 3.3 L Chloride Carbon Dioxide 21 L BUN 72 H Creatinine 4.0 H Glucose 106 H POC Glucose Magnesium AST 58 H 68 H ALT 70 H 86 H Total Creatine Kinase CK-MB (CK-2) NT-Pro-B Natriuret Pep Total Protein 6.2 L Albumin 2.8 L 2.9 L TSH Urine WBC (Auto) Urine Creatinine Urine Total Protein 07/24/20 07/25/20 07/27/20 04:30 05:12 05:21 Hgb Hct RDW [place] % (Auto) Seg Neutrophils % Seg Neuts % (Manual) Lymphocytes % (Manual) Seg Neutrophils # Man Lymphocytes # (Manual) PT INR Sodium Potassium 3.4 L 3.2 L 2.9 L* Chloride Carbon Dioxide BUN 60 H 38 H Creatinine 2.8 H 1.7 H Glucose POC Glucose Magnesium AST 50 H ALT 79 H 63 H Total Creatine Kinase CK-MB (CK-2) NT-Pro-B Natriuret Pep Total Protein Albumin 3.0 L 3.1 L TSH Urine WBC (Auto) Urine Creatinine Urine Total Protein 07/28/20 07/28/20 07/28/20 04:24 05:21 06:52 Hgb 11.2 L Hct 33.8 L RDW 16.5 H [place] % (Auto) 7.9 H Seg Neutrophils % 71.6 H Seg Neuts % (Manual) Lymphocytes % (Manual) Seg Neutrophils # Man Lymphocytes # (Manual) PT INR Sodium Potassium 3.4 L Chloride Carbon Dioxide 21 L BUN Creatinine Glucose POC Glucose Magnesium 1.60 L AST ALT Total Creatine Kinase CK-MB (CK-2) NT-Pro-B Natriuret Pep Total Protein Albumin TSH Urine WBC (Auto) Urine Creatinine Urine Total Protein 07/28/20 06:52 Hgb Hct RDW [place] % (Auto) Seg Neutrophils % Seg Neuts % (Manual) Lymphocytes % (Manual) Seg Neutrophils # Man Lymphocytes # (Manual) PT INR Sodium Potassium 3.5 L Chloride Carbon Dioxide 20 L BUN Creatinine Glucose POC Glucose Magnesium AST ALT Total Creatine Kinase CK-MB (CK-2) NT-Pro-B Natriuret Pep Total Protein Albumin TSH Urine WBC (Auto) Urine Creatinine Urine Total Protein Allied health notes reviewed: nursing
--- NOTE | 2020-07-28 11:37 | Progress Note ---
Assessment and Plan telemetry reviewed - in AFib HR 80s - 90s overnight (although bradycardia is inaccurately charted on vital sign flowsheet). Cont present cardiac management. Replete K+ and Mg. Currently stable cardiac status. Pt may discharge from cardiology standpoint on present cardiac regimen. Recommend follow up in our office with Dr. Stanley within 2 weeks of discharge ([phone]). The patient has been seen in conjunction with Dr. Pancho Valles who agrees with the assessment and plan of care. - Patient Problems (1) Paroxysmal atrial fibrillation with rapid ventricular response Current Visit: Yes Status: Chronic (2) AMS (altered mental status) Current Visit: Yes Status: Resolved (3) Sepsis Current Visit: Yes Status: Suspected (4) Hypotension Current Visit: Yes Status: Acute Qualifiers: Hypotension type: unspecified hypotension type Qualified Code(s): I95.9 - Hypotension, unspecified (5) UTI (urinary tract infection) Current Visit: Yes Status: Acute (6) Acute on chronic renal failure Current Visit: Yes Status: Resolved (7) History of CVA (cerebrovascular accident) Current Visit: Yes Status: Chronic (8) History of DVT (deep vein thrombosis) Current Visit: Yes Status: Chronic (9) Presence of IVC filter Current Visit: Yes Status: Chronic (10) Cardiomyopathy Current Visit: Yes Status: Chronic (11) Hypokalemia Current Visit: Yes Status: Resolved (12) Nausea and vomiting Current Visit: Yes Status: Resolved Subjective Date of service: 07/28/20 Principal diagnosis: Atrial fibrillation with RVR, hypotension, UTI Interval history: pt resting in bed, states he is feeling better. tele reviewed - in AFib HR 80s - 90s overnight. Objective Last Vital Signs Temp 97.8 F 07/28/20 09:07 Pulse 46 L 07/28/20 09:56 Resp 18 07/28/20 09:07 BP 124/74 07/28/20 09:56 Pulse Ox 98 07/28/20 09:07 - Physical Examination General: No Apparent Distress HEENT: Positive: PERRL, Normocephaly, Mucus Membranes Moist Neck: Positive: neck supple, trachea midline Cardiac: Positive: irregularly irregular, S1/S2 Lungs: Positive: Decreased Breath Sounds Neuro: Positive: Grossly Intact Abdomen: Negative: Tender Skin: Negative: Rash Musculoskeletal: No Pain Extremities: Absent: edema - Labs and Meds CBC 10/13/20 Range/Units 06:52 WBC 10.0 (4.5-11.0) K/mm3 RBC 3.86 (3.65-5.03) M/mm3 Hgb 11.2 L (11.8-15.2) gm/dl Hct 33.8 L (35.5-45.6) % Plt Count 145 (140-440) K/mm3 Lymph # (Auto) 1.9 (1.2-5.4) K/mm3 [place] # (Auto) 0.8 (0.0-0.8) K/mm3 Eos # (Auto) 0.1 (0.0-0.4) K/mm3 Baso # (Auto) 0.0 (0.0-0.1) K/mm3 Comprehensive Metabolic Panel 07/28/20 07/28/20 Range/Units 05:21 06:52 Sodium 138 140 (137-145) mmol/L Potassium 3.4 L 3.5 L (3.6-5.0) mmol/L Chloride 101.8 104.2 (98-107) mmol/L Carbon Dioxide 21 L 20 L (22-30) mmol/L BUN 13 12 (9-20) mg/dL Creatinine 1.2 1.1 (0.8-1.3) mg/dL Glucose 89 93 (75-100) mg/dL Calcium 8.7 8.6 (8.4-10.2) mg/dL - Imaging and Cardiology EKG: report reviewed, image reviewed Echo: report reviewed (EF 45-50%, impaired relaxation. ) - Allied health notes Allied health notes reviewed: nursing
[2020-07-28 16:33] VITALS: BP 106/75
== END 2020-07-28 18:30 | disposition home health service (06) | DRG 871 ==
LOC: ED 13:13 → CC1 18:39 → 4A 07-21 17:00
PROVIDERS: ADMIT Internal Medicine; ATTEND Hospitalist
PROC: 02HV33Z Insertion of Infusion Device into Superior Vena Cava, Percutaneous Approach (ICD-10-PCS; principal; 2020-07-19)
DX: A41.9 Sepsis, unspecified organism (principal); N17.0 Acute kidney failure with tubular necrosis; G92 Toxic encephalopathy; R65.21 Severe sepsis with septic shock; N39.0 Urinary tract infection, site not specified; I42.9 Cardiomyopathy, unspecified; I12.9 Hypertensive chronic kidney disease with stage 1 through stage 4 chronic kidney disease, or unspecified chronic kidney disease; E87.6 Hypokalemia; I48.0 Paroxysmal atrial fibrillation; D64.9 Anemia, unspecified; N18.9 Chronic kidney disease, unspecified; B96.4 Proteus (mirabilis) (morganii) as the cause of diseases classified elsewhere; Z86.718 Personal history of other venous thrombosis and embolism; Z86.73 Personal history of transient ischemic attack (TIA), and cerebral infarction without residual deficits
CPT/HCPCS: 36415; 70450; 71045; 74176; 76705; 76770; 80048; 80053; 80074; 80076; 80320; 81001; 82550; 82553; 82570; 82962; 83036; 83690; 83735; 83880; 84100; 84132; 84156; 84300; 84439; 84443; 84484; 85007; 85025; 85610; 85730; 87040; 87076; 87086; 87186; 87493; 89050; 93005; 93306; 96365; 96366; 96368; 96375; G0378; G0480; J0282; J0696; J2270; J2405; J2765; J3370; J3475; J3480; J7030; J7040; J7060; J7070